=== PATIENT | female | born 1965 | race Caucasian/White ===

== ENCOUNTER 2018-04-27 00:49 | Outpatient (CLI) | payer BC, SELFPAY ==
--- NOTE | 2018-04-27 15:33 | DI.MAMMO_ITS ---
SYMPTOM/DIAGNOSIS: SCREENING, Z12.31 MAMMOGRAMS: Mammograms were interpreted according to the usual protocol including computer analysis with CAD system, tomosynthesis and C view imaging. Comparison is made with exams from [id number]. The breasts are composed of heterogeneously dense fibroglandular tissue, breast density, Category C. No suspicious masses or suspicious microcalcifications are seen. IMPRESSION: Category 1C, negative mammogram. Yearly screening mammography is recommended. [facility] ASSESSMENT OF FINDINGS: Negative. Category 1. Patient will receive a letter notifying them of these results. Bi-RADS category C. The breasts are heterogeneously dense, which may obscure small masses.
== END 2018-04-27 01:09 ==
PROVIDERS: PCP Family Medicine; Visit Provider Nurse Practitioner Family
DX: Z12.31 Encounter for screening mammogram for malignant neoplasm of breast (principal)
CPT/HCPCS: 77063; 77067

== ENCOUNTER 2018-05-15 10:46 | Day surgery (SDC) | payer BC, SELFPAY ==
--- NOTE | 2018-05-15 07:14 | W.COLOREPORT ---
Colonoscopy Report Date of procedure: 05/15/18 Pre-op diagnosis general: Screening Colonoscopy Post-op diagnosis procedure note: other (sigmoid diverticulosis) Procedure: Colonoscopy Surgeon: Bronwyn Leung Anesthesia proc note operative: MAC (Amando Williamson CRNA) Estimated blood loss (mL): 0 Pathology: none sent Complications: None Disposition: same day Indications: Mrs. Puente is here for a screening Colonoscopy. Risks, benefits and complications have been reviewed and she wished to proceed. No guarantees were given or implied. Prep: Miralax/Dulcolax Procedure Start Time: 12:55 Procedure End Time: 13:14 Retraction Time: 11 minutes Findings: Mild diverticulosis of the sigmoid colon Procedure Description: After informed consent was obtained the patient was taken to the procedure room and placed in a left decubitous position. Monitors were applied and a time out was done. The patients name, date of , procedure, allergies to medications and metal in their body was reviewed. The patient was then sedated. Once sedated and comfortable a rectal exam was done. External exam was normal. Internal exam revealed a normal sphincter tone and no palpable masses. The scope was then introduced and retroflexed. No internal hemorrhoids were identified. The scope was then advanced to the cecum without difficulty. The TI and appendiceal orifice were identified. The prep was adequate. The scope was then slowly retracted over 11 minutes back into the rectum. There were no polyps. There was mild diverticulosis of the sigmoid colon.The scope was removed and the patient was woken up and taken back to Same day surgery in stable condition. The patient tolerated the procedure well and there were no immediate complications. Follow up: The patient should follow up in 10 years unless they develop changes in bowel habits or other new gastrointestinal complaints.
--- NOTE | 2018-05-15 07:17 | PDOC.DSDIS_ITS ---
Discharge Plan Disposition Patient Disposition: HOME Condition: Good Discharge Details Reason For Visit: Colonoscopy Attending Provider: Bronwyn Leung Primary Care Provider: Burton Perry Home Meds and New Rx's Prescriptions: Continue multivitamin,lw-vqjr-ljylyxse [Complete Multivitamin] tablet 1 tab PO DAILY RF: 0 norethindrone acetate [Aygestin] 5 MG tablet 5 mg PO DAILY Qty: 90 RF: 3 Discontinued polyethylene glycol 3350 17 gram powder in packet 255 g PO DAILY Qty: 15 RF: 0 bisacodyl [Dulcolax (bisacodyl)] 5 mg tablet,delayed release (DR/EC) 5 mg PO ONCE Qty: 4 RF: 0 Discharge Instructions Instructions: Colonoscopy (DC), Diverticulosis (DC) Additional Instructions: Findings: Diverticulosis Follow up: 10 years New medications: none Please call if you develop: fevers >101.5 Nausea or Vomiting Abdominal pain that is not transient 1. Because there will be medication in your system for the next 24 hours, you may feel a little sleepy. Your coordination will be affected. Therefore: a. Do not drive or operate dangerous equipment for 24 hours. b. Do not drink alcohol beverages for 24 hours (not even beer). c. Plan to go home and rest for the day. 2. Generally there are no restrictions on your activity after a day or so has gone by, but you may feel a bit fatigued for a few days. 3 After you arrive home you may have a light meal and return to a normal diet as you can tolerate it without feeling sick to your stomach. 4. After surgery, you may feel pain or discomfort. This should be only transient , but if it persists please contact your doctor. 5. If there are any questions regarding the findings of your procedure, please feel free to contact your doctor. 6. If you are unable to contact your doctor with a problem, contact the hospital at [phone]. 7. Continue all your regular medications unless directed otherwise. I understand the above instructions and have no questions. Signature of Patient or Responsible Adult Escort Date/Time Name of Responsible Adult Escort Signature of Nurse Date/Time Activity:: Activity as Tolerated Diet:: high fiber diet Discharge Orders Discharge Orders: Discharge Order (Routine); Ordered 05/15/18 Ordered By: Bronwyn Leung
[2018-05-15 11:22] VITALS: BP 137/97; PULSE 76; RESP 16; TEMP 36.6; O2SAT 99
[2018-05-15] MEDS: Lactated Ringers 1,000 ML 80 ML IV (11:40)
[2018-05-15 13:45] VITALS: BP 140/93; PULSE 65; RESP 16; TEMP 37.4; O2SAT 100
== END 2018-05-15 14:07 | disposition home or self-care (01) ==
LOC: SUR 10:46
PROVIDERS: PCP Family Medicine; Visit Provider Surgery
PROC: 0DJD8ZZ Inspection of Lower Intestinal Tract, Via Natural or Artificial Opening Endoscopic (ICD-10-PCS; CPT 45378; principal; 2018-05-15 13:00)
DX: Z12.11 Encounter for screening for malignant neoplasm of colon (principal); K57.30 Diverticulosis of large intestine without perforation or abscess without bleeding
CPT/HCPCS: 45378

== ENCOUNTER 2019-03-01 08:45 | Outpatient (CLI) | payer BC, SELFPAY ==
[2019-03-01 10:21] LABS: ALT 23 U/L (12-78); AST 14 U/L (15-37); Albumin 3.7 g/dL (3.4-5.0); Alkaline Phosphatase 88 U/L (46-116); Anion Gap 11.6 mmol/L (3-11); BUN 10 mg/dL (7-18); Bilirubin, Total 0.4 mg/dL (0.2-1.0); CO2 23.4 mmol/L (21.0-32.0); CREATININE 0.82 mg/dL (0.55-1.02); Calcium 8.6 mg/dL (8.5-10.1); Calculated LDL 138 mg/dL; Chloride 106 mmol/L (98-107); Cholesterol 197 mg/dL (50-200); Glucose 90 mg/dL (70-100); HDL Cholesterol 22 mg/dL (40-60); Potassium 4.1 mmol/L (3.5-5.1); Sodium 141 mmol/L (136-145); Total Protein 6.8 g/dL (6.4-8.2); Triglyceride 186 mg/dL (30-150)
== END 2019-03-01 09:05 ==
PROVIDERS: PCP Family Medicine; Visit Provider Family Medicine
DX: E78.6 Lipoprotein deficiency (principal); Z00.00 Encounter for general adult medical examination without abnormal findings
CPT/HCPCS: 36415; 80053; 80061; 83721

== ENCOUNTER 2019-05-02 00:47 | Outpatient (CLI) | payer BC, SELFPAY ==
--- NOTE | 2019-05-02 15:30 | DI.MAMMO_ITS ---
EXAM: MG MAMMO SCREENING CLINICAL HISTORY: SCREENING, ENCOUNTER FOR ANNUAL PHYSICAL EXAM.,z00.00,z12.31 TECHNIQUE: Bilateral full field digital CC and MLO mammographic images were obtained with 3D tomosyn thesis and utilizing computer aided detection (CAD). COMPARISON: With previous examinations including April,. FINDINGS: The breasts are heterogeneously dense. No dominant mass or clumped microcalcification identified in either breast. Current exam is compared with the previous examinations including April 2018 and there has been no gross interval change in appearance in comparison with the previous studies. IMPRESSION: No specific evidence of malignancy at this time. Routine screening examinations are suggested at year ly intervals in this age group according to the ACS ACR guidelines. Category 1. Breast density, sue huynhy C. BI-RADS Cat 1 - Negative Breast Density - Catergory C - Heterogeneously dense
== END 2019-05-02 01:07 ==
PROVIDERS: PCP Family Medicine; Visit Provider Family Medicine
DX: Z00.00 Encounter for general adult medical examination without abnormal findings (principal); Z12.31 Encounter for screening mammogram for malignant neoplasm of breast
CPT/HCPCS: 77063; 77067

== ENCOUNTER 2019-07-24 01:51 | Outpatient (CLI) | payer BC, SELFPAY ==
[2019-07-24 11:40] LABS: ALT 20 U/L (14-59); Calculated LDL 88 mg/dL; Cholesterol 142 mg/dL (<200); HDL Cholesterol 23 mg/dL (40-60); Triglyceride 159 mg/dL (<150)
== END 2019-07-24 02:11 ==
PROVIDERS: PCP Family Medicine; Visit Provider Family Medicine
DX: E78.5 Hyperlipidemia, unspecified (principal)
CPT/HCPCS: 36415; 80061; 84460

== ENCOUNTER 2020-01-25 04:06 | Outpatient (CLI) | payer BC, SELFPAY ==
[2020-01-25 08:45] LABS: ALT 28 U/L (14-59); Calculated LDL 80 mg/dL (<100); Cholesterol 132 mg/dL (<200); HDL Cholesterol 26 mg/dL (40-60); Triglyceride 131 mg/dL (<150)
== END 2020-01-25 04:26 ==
PROVIDERS: PCP Family Medicine; Visit Provider Family Medicine
DX: E78.6 Lipoprotein deficiency (principal)
CPT/HCPCS: 36415; 80061; 84460

== ENCOUNTER 2020-04-25 16:16 | Outpatient (REF) | payer BC, SELFPAY ==
--- NOTE | 2020-04-25 15:45 | PAPFT_PTH ---
PATIENT: Yolis Puente LOC: [facility] U#:[id number] AGE/SX: 54/F ROOM: RE04/25/[address]: DENAE Baxter : 1965 BED: DIS: 04/25/2020 SPEC #: [id number] RECD: 04/25/20 16:56 STATUS: DANIEL REQ #: [id number] RUDI: 04/25/20 15:[address]: Hilda Hernandez DEPT: [facility] Cytology RECD BY: Christine Gr ENTERED: 04/25/20 16:57 SP TYPE: PAPFT OTHR DR: Burton Perry MD Tissues: 1 - CX/ENDOCX FOR PAP SMEARS Procedures: PAP THIN PREP/UVM Screening HPV DNA PROBE Comments: [id number]
== END 2020-04-25 16:36 ==
LOC: LBN 16:16
PROVIDERS: PCP Family Medicine; Visit Provider Nurse Practitioner Family
DX: Z12.4 Encounter for screening for malignant neoplasm of cervix (principal); Z11.51 Encounter for screening for human papillomavirus (HPV)
CPT/HCPCS: 88142; 87624

== ENCOUNTER 2020-05-19 00:50 | Outpatient (CLI) | payer BC, SELFPAY ==
--- NOTE | 2020-05-19 15:30 | DI.MAMMO_ITS ---
EXAM: MG MAMMO SCREENING CLINICAL HISTORY: screening TECHNIQUE: Mammograms were interpreted according to the usual protocol including computer analysis w Twice CAD system, tomosynthesis and C-view imaging. COMPARISON: FINDINGS: The breasts are heterogeneously dense. No dominant mass or clumped microcalcification is identified in either breast. The current examination is compared with prior studies including April 2019 an d there has been no gross interval change in appearance comparison with the previous examinations. IMPRESSION: No specific evidence of malignancy at this time. Routine screening examinations are suggested at yea rly intervals in this age group according to the ACS ACR guidelines. BI-RADS Category 1 - Negative Breast Density - Category C - Heterogeneously dense
== END 2020-05-19 01:10 ==
PROVIDERS: PCP Family Medicine; Visit Provider Nurse Practitioner Family
DX: Z12.31 Encounter for screening mammogram for malignant neoplasm of breast (principal)
CPT/HCPCS: 77063; 77067

== ENCOUNTER 2020-07-07 03:49 | Outpatient (CLI) | payer BC, SELFPAY ==
[2020-07-08 19:12] LABS: Patient Race White; SARS-CoV-2 Specimen Source Nasal
[2020-07-09 09:25] LABS: SARS-CoV-2 RNA Detected (Undetected)
== END 2020-07-07 04:09 ==
PROVIDERS: PCP Family Medicine; Visit Provider Family Medicine
DX: Z11.59 Encounter for screening for other viral diseases (principal)
CPT/HCPCS: U0003

== ENCOUNTER 2021-01-13 01:13 | Observation (INO) | payer BC, SELFPAY ==
[2021-01-13] VITALS (19 sets, daily range): BP systolic 118–151; BP diastolic 73–85; PULSE 65–79; RESP 10–22; TEMP 36.2–37; O2SAT 96–100
--- NOTE | 2021-01-13 01:11 | W.ED.GENAD ---
Discharge Plan Disposition Patient Disposition: [facility] INPATIENT Condition: Poor Discharge Details Clinical Impression: Vertigo Primary Care Provider: Janneth Venegas ED Provider: Brian Capone Meds and New Rx's Prescriptions: No Action Complete Multivitamin tablet 1 tab PO DAILY RF: 0 omega-3 fatty acids [Fish Oil Concentrate] 1,000 mg capsule 1,000 mg PO DAILY RF: 0 atorvastatin 40 mg tablet 40 mg PO QHS Qty: 90 RF: 3 valsartan 80 mg tablet 80 mg PO DAILY Qty: 30 RF: 11 norethindrone acetate [Aygestin] 5 mg tablet 5 mg PO DAILY Qty: 90 RF: 3 fluticasone propionate 50 mcg/actuation spray,suspension 2 spray MARIAELENA DAILY PRN (Reason: allergic rhinitis) Qty: 47.4 RF: 5 Medical Decision Making Patient presenting with vertigo and multidirectional nystagmus including rotary nystagmus but otherwise normal neurologic exam with NIH score of 0. However the rest nystagmus and vertigo is worrisome. Patient last normal at 8:[address] Will continue fluids. Valium to try to help with the vertigo. EKG is normal. Laboratory studies sent. CT head as well as CTA head and neck ordered. Patient's vertigo still present but much less intense after Valium. Still has nystagmus although much improved. No new neurologic changes. Laboratory studies are unremarkable, minor electrolyte abnormalities. CT head shows no evidence of acute stroke. She does have what appears to be 2 meningiomas which she was unaware of. CTA head and neck are completely normal. Patient will be dosed with aspirin. Case discussed with hospitalist for admission for control of vertigo as well as MRI of the brain. Patient accepted for admission Lab Data Lab results reviewed: Yes I reviewed the patient's lab results. ECG Data Attestation: I personally reviewed and interpreted this ECG (s) as follows: Prior ECG tracings: not available for review Interpretation: see EKG HPI General Mode of arrival: EMS. Date/Time Provider Initiated Documentation: 01/13/21 01:20. Limitations to Documentation: no limitations. Information obtained by: patient and RN notes reviewed. HPI Narrative: Patient presents to ED with dizziness. Patient went to bed around 8:30 PM and had felt fine. Woke up with severe dizziness and was unable to even get out of bed. She had multiple episodes of vomiting. EMS was called. Patient had IV established and was given fluids and Zofran in route. Nausea somewhat better but she still has dizziness. Reports that the room is spinning no matter what but is worse if she moves or opens her eyes. She denies headache. She denies neck pain. She denies visual change, confusion, speech problem, numbness, weakness. She denies having any chest pain or shortness of breath. She has nausea and vomiting but no abdominal pain. She has never had vertigo previously. She does have history of hypertension and hypercholesterolemia. No history of tobacco use or diabetes. Related Data Home Medications Medication Instructions Recorded Confirmed multivitamin,gn-nevg-rojgtlry 1 tab PO DAILY 05/09/18 01/13/21 omega-3 fatty acids 1,000 mg 1,000 mg PO DAILY 04/20/19 01/13/21 capsule atorvastatin 40 mg tablet 40 mg PO QHS #90 tab 02/18/20 01/13/21 valsartan 80 mg tablet 80 mg PO DAILY #30 tab 02/18/20 01/13/21 fluticasone propionate 50 2 spray MARIAELENA DAILY PRN #47.4 gm 04/22/20 01/13/21 mcg/actuation nasal spray,suspension norethindrone acetate 5 mg tablet 5 mg PO DAILY #90 tab-cap 04/25/20 01/13/21 Previous Rx's Medication Instructions Recorded atorvastatin 40 mg tablet 40 mg PO QHS #90 tab 02/18/20 valsartan 80 mg tablet 80 mg PO DAILY #30 tab 02/18/20 fluticasone propionate 50 2 spray MARIAELENA DAILY PRN #47.4 gm 04/22/20 mcg/actuation nasal spray,suspension norethindrone acetate 5 mg tablet 5 mg PO DAILY #90 tab-cap 04/25/20 Allergies Allergy/AdvReac Type Severity Reaction Status Date / Time coenzyme 10 Allergy Intermediate Hives/Itchi Uncoded 01/13/21 01:23 ng Review of Systems Narrative: 05/28 Review of Systems completed and is negative except as stated above in HPI (Systems reviewed: Const, Eyes, ENT, Resp, CV, GI, , MSK, Skin, Neuro) PFSH Medical History Anemia Fibroid uterus HTN (hypertension) Hyperglycemia Hypertriglyceridemia Menorrhagia Treated with OCPs [id number]. Mirena IUD 2013 not effective. 06/19/15 hysteroscopic myomectomy. Surgical History Hysteroscopy (06/19/15) hysteroscopic myomectomy. 3/4 of fibroid removed. Family History Mother Heart disease Maternal Grandfather , 70s Heart disease Maternal Grandmother , 90 Diabetes Asthma Son No problems noted. Daughter No problems noted. Father , Age 69 No problems noted. Social History Smoking/Tobacco Use Status: Never Smoking risk assessment performed?: Yes Alcohol Intake: current Alcohol Intake frequency: a few times a month Alcohol type: hard liquor Drug use: Never Caregiver/Support person: No Household members: significant other and children Housing: house Communication Needs: None Do you need help understanding health information?: Never Pets and animals: No Sexually active: Yes Do you think of yourself as: straight/heterosexual Current gender identity: female What is your relationship status?: living with partner How often do you talk on the phone with friends or family?: three or more times per week How often do you get together with friends or relatives?: three or more times per week How often do you attend rastafari or holiness services?: decline to answer Do you belong to any clubs or organized social groups?: no Panel score (0-1 are the most socially isolated patients): 2 What type of physical activity do you participate in: walking Duration: 45-60 minutes/day Frequency: 5-6 times per week Tatiana/Moravian: None Special tatiana needs: No Seatbelt use: always Helmet use: Yes Drive intox or ride w/intox passenger coach driver: No Do you feel safe at home: Yes Exam Narrative Exam Narrative: Const: WDWN female lying on stretcher with eyes closed. HEENT: NC/AT. Normal facial exam. Eyes: PERRL. EOMI but multidirectional rest nystagmus present. Neck: Supple. Trachea midline. Lungs: Normal respiratory effort. Lungs are clear. Cor: RRR without murmur/gallop. Good radial pulses. GI: Soft. NT/ND. No guarding or rebound. Neuro: A+O x 3. Normal speech, mentation. Cranial nerves II - XII grossly intact. Sensory in tact. Strength normal throughout. No ataxia. NIH 0. HINTs positive. Ext: No C/C/E. Skin: Warm and dry without rash.
--- NOTE | 2021-01-13 01:15 | RT.EKG_ITS ---
APPROVED REPORT Exam: Resting ECG Reason for Exam: dizzy Patient Location: E HR:63 bpm ECG Measurements Heart Rate 63 AXIS AR 176 P 46 QRSd 91 QRS 13 QT 452 T 32 QTc 462 Conclusion Sinus rhythm...normal P axis, V-rate 60- 99 Normal [place] Normal Electrocardiogram
--- NOTE | 2021-01-13 01:15 | DI.CT_ITS ---
Exam(s) CT BRAIN NECK CTA EXAM: CT BRAIN NECK CTA CLINICAL HISTORY: vertigo, rotorary nystagmus. TECHNIQUE: Imaging Protocol: Axial CT angiography was performed with multi-slice acquisition and mu lti-planar and/or 3D reconstructions. CONTRAST MATERIAL: Intravenous: Omnipaque 350 Contrast volume:structured data in ml COMPARISON: No exams were available for comparison FINDINGS: CT angiography of the cervical cranial region was performed according to the usual protocol with intr avenous infusion of 86 cc of Omnipaque 350.. Initial noncontrast scanning of the head shows partially calcified left intracranial masses which estefany ear to be extra-axial, left frontal parafalcine measuring about 26 by 19 millimeters in diameter and left temporal measuring 25 x 22 millimeters in diameter. These are partially calcified and show inte nse homogeneous enhancement on post contrast scanning, findings are consistent with meningioma. Visualized lung apices are clear. Visualized portions of thoracic aorta and pulmonary arterial circul ation are unremarkable. There is no evidence of a cervical mass or adenopathy. The tracheal laryngeal structures appear intact. The common, internal, and external carotid arteries are within normal limits in the cervical region w ith no evidence of aneurysm, stenosis, or dissection. The vertebral arteries are unremarkable in appearance in the cervical region with no evidence of aneu rysm, stenosis, or dissection. Intracranial portions of the internal carotid arteries appear normal with no evidence of aneurysm, st enosis, or dissection. Intracranial vertebral arteries and basilar artery appear normal with no evidence of aneurysm, stenos is or dissection. The vertebral circulation is right dominant. No aneurysm identified in the region of the yhadkf-zu-Wuzbce. The anterior, middle, and posterior cer ebral arteries and major branches appear intact with no evidence of aneurysm, stenosis, or dissection . IMPRESSION: Negative CT angiography of the cervical cranial region. Incidental finding of presumed left-sided meningiomas as described above. RADIATION DOSE DELIVERED: 2,157.6mGy.cmTotal DLP 2,157.6mGy.cm Total DLP DATA REPOSITORY: All CT scans at this facility are submitted to the National Radiology Data Registry (NRDR) Dose Index Registry (DIR) with the [employer] (ACR). RADIATION OPTIMIZATION: All CT scans at this facility use at least one of these dose optimization te chniques: automated exposure control; mA and/or kV adjustment per patient size (includes targeted exa ms where dose is matched to clinical indication); or iterative reconstruction.
[2021-01-13] MEDS: diazePAM 10 MG/2 ML SYR 2 MG IVP (01:35)
[2021-01-13 01:47] LABS: Abs Immature Grans 0.04 10^3/uL (0.0-0.06); Absolute Basophil Count 0.04 10^3/uL (0.0-0.2); Absolute Eosinophil Count 0.15 10^3/uL (0.0-0.7); Absolute Lymphocyte Count 1.73 10^3/uL (1.2-3.4); Absolute Monocyte Count 0.71 10^3/uL (0.1-0.8); Absolute Neutrophil Count 9.51 10^3/uL (1.2-6.7); Basophils % 0.3; Eosinophils % 1.2; HCT 39.4 % (36.0-46.0); HGB 13.4 g/dL (11.2-15.7); Immature Grans % 0.3; Lymphocytes % 14.2; MCH 30.4 pg (27.0-33.0); MCV 89.3 fL (80-95); MPV 9.6 fL (8.0-11.0); Monocytes % 5.8; Neutrophils % 78.2; Nucleated RBC 0 %; Platelet Count 252 10^3/uL (130-400); RBC 4.41 10^6/uL (3.93-5.22); RDW 12.4 % (11.7-14.6); RDW-SD 41.1 fL; WBC 12.16 10^3/uL (4.4-10.8)
[2021-01-13] MEDS: Normal Saline 1,000 ML 150 ML IV (01:57)
[2021-01-13 02:01] LABS: ALT 26 U/L (14-59); AST 17 U/L (15-37); Albumin 3.8 g/dL (3.4-5.0); Alkaline Phosphatase 85 U/L (46-116); Anion Gap 14.9 mmol/L (3-11); BUN 15 mg/dL (7-18); Bilirubin, Total 0.5 mg/dL (0.2-1.0); CO2 21.1 mmol/L (21.0-32.0); CREATININE 1.2 mg/dL (0.55-1.02); Calcium 8.5 mg/dL (8.5-10.1); Chloride 108 mmol/L (98-107); Estimated GFR 46.99 (mL/min/1.73m2); Glucose 150 mg/dL (74-106); Magnesium 1.7 mg/dL (1.8-2.4); Potassium 3.4 mmol/L (3.5-5.1); Sodium 144 mmol/L (136-145); Total Protein 6.8 g/dL (6.4-8.2)
[2021-01-13] MEDS: Omnipaque 350 MG/ML 100 ML BTL IJ (02:53)
[2021-01-13] MEDS: Normal Saline - Diluent 50 ML VIAL IV (02:53)
--- NOTE | 2021-01-13 03:05 | DI.VRAD_ITS ---
PROCEDURE INFORMATION: Exam: CT Angiography Head With Contrast, Arteriography Exam date and time: 01/13/2021 1:30 AM Age: 55 years old Clinical indication: Pain; Other: Vertigo rotorary nystagmus TECHNIQUE: Imaging protocol: Computed tomography angiography of the head with contrast. Exam focused on the arteries. 3D rendering (Not supervised by radiologist): MIP and/or 3D reconstructed images were created by the technologist. Contrast material: 100; Contrast volume: 86 ml; Contrast route: INTRAVENOUS (IV); COMPARISON: No relevant prior studies available. FINDINGS: ANTERIOR CIRCULATION: Right internal carotid artery: Unremarkable. Intracranial segment is patent with no significant stenosis. No aneurysm. Right middle cerebral artery: Unremarkable. No occlusion or significant stenosis. No aneurysm. Right anterior cerebral artery: Unremarkable. No occlusion or significant stenosis. No aneurysm. Left internal carotid artery: Unremarkable. Intracranial segment is patent with no significant stenosis. No aneurysm. Left middle cerebral artery: Unremarkable. No occlusion or significant stenosis. No aneurysm. Left anterior cerebral artery: Unremarkable. No occlusion or significant stenosis. No aneurysm. POSTERIOR CIRCULATION: Right vertebral artery: Unremarkable. No occlusion or significant stenosis. No aneurysm. Left vertebral artery: Unremarkable. No occlusion or significant stenosis. No aneurysm. Basilar artery: Unremarkable. No occlusion or significant stenosis. No aneurysm. Right posterior cerebral artery: Unremarkable. No occlusion or significant stenosis. No aneurysm. Left posterior cerebral artery: Unremarkable. No occlusion or significant stenosis. No aneurysm. Brain: Partially calcified extra-axial lesions noted in a left frontal parafalcine location measuring 2.6 by 1.9 cm and in a left temporal location measuring 2.5 x 2.2 cm likely reflecting meningioma. Cerebral ventricles: No ventriculomegaly. Bones/joints: Unremarkable. No acute fracture. Soft tissues: Unremarkable. IMPRESSION: No large vessel stenosis or occlusion Partially calcified extra-axial lesions noted in a left frontal parafalcine location measuring 2.6 by 1.9 cm and in a left temporal location measuring 2.5 x 2.2 cm likely reflecting meningioma. PROCEDURE INFORMATION: Exam: CT Angiography Neck With Contrast Exam date and time: 01/13/2021 1:30 AM Age: 55 years old Clinical indication: Pain; Other: Vertigo rotorary nystagmus TECHNIQUE: Imaging protocol: Computed tomography angiography of the neck with contrast. 3D rendering (Not supervised by radiologist): MIP and/or 3D reconstructed images were created by the technologist. Contrast material: 100; Contrast volume: 86 ml; Contrast route: INTRAVENOUS (IV); COMPARISON: No relevant prior studies available. FINDINGS: Right common carotid artery: No stenosis. No dissection or occlusion. Right internal carotid artery: No stenosis of the extracranial segment. No dissection or occlusion. Right external carotid artery: No occlusion or stenosis of the origin. Left common carotid artery: No stenosis. No dissection or occlusion. Left internal carotid artery: No stenosis of the extracranial segment. No dissection or occlusion. Left external carotid artery: No occlusion or stenosis of the origin. Right vertebral artery: Dominant right vertebral artery Left vertebral artery: No stenosis. No dissection or occlusion. Soft tissues: Normal. No significant soft tissue swelling. Bones/joints: No acute fracture. IMPRESSION: No carotid or vertebral artery stenosis. Dominant right vertebral artery REFERENCES: NASCET CRITERIA. The degree of internal carotid artery stenosis is based on NASCET criteria. Normal is no stenosis. Mild is less than 50% stenosis. Moderate is 50-69% stenosis. Severe is 70% to 99% stenosis. Total occlusion is no detectable patent lumen. Dictated and Authenticated by: Ajith Dietz MD. Ordering:KRISTYN Torres MD
[2021-01-13] MEDS: Aspirin 81 MG CHEW 324 MG CH (03:28)
[2021-01-13 03:30] LABS: Source Nasal/Nares
--- NOTE | 2021-01-13 03:49 | W.PM.HP.N ---
Date of service: 01/13/21 Time of Service: 03:49 Assessment and Plan Assessment and plan (1) Vertigo: Status: Acute Assessment and plan: Vertigo. Likely peripheral, cannot entirely exclude small posterior stroke. Will add Meclizine, along with prn Valium and Zofran, and will give maintenance IVF. Plan MRI in AM. Declines trial of canalith repositioning maneuver. History of Present Illness History of Present Illness Chief Complaint: vertigo Narrative: 55 female with HT, HLD -- awoke suddenly with vertigo early this morning, along with multiple episodes vomiting. No CHRISTIE, visual or speech disturbance or lateralizing symptoms. Received Zofran en route. In ER findings of note for mixed nystagmus, otherwise normal neurological exam. CT head negative except for incidental finding of left frontal and left temporal lesions c/w menigioma. Given Valium 2 IV with modest improvement in symptoms. Also given dose ASA 325. Admitted for further evaluation and management. Patient denies recent URI or prior such episodes. States she feels definitely better but still substantially distressed. Of note she was able to navigate to commode with assist but prefers to lie still with eyes closed. Review of Systems All systems reviewed & are unremarkable except as noted in HPI and below PFSH Medical History Anemia Fibroid uterus HTN (hypertension) Hyperglycemia Hypertriglyceridemia Menorrhagia Treated with OCPs [id number]. Mirena IUD 2013 not effective. 06/19/15 hysteroscopic myomectomy. Surgical History Hysteroscopy (06/19/15) hysteroscopic myomectomy. 3/4 of fibroid removed. Family History Mother Heart disease Maternal Grandfather , 70s Heart disease Maternal Grandmother , 90 Diabetes Asthma Son No problems noted. Daughter No problems noted. Father , Age 69 No problems noted. Social History Smoking/Tobacco Use Status: Never Smoking risk assessment performed?: Yes Alcohol Intake: current Alcohol Intake frequency: a few times a month Alcohol type: hard liquor Drug use: Never Caregiver/Support person: No Household members: significant other and children Housing: house Communication Needs: None Do you need help understanding health information?: Never Pets and animals: No Sexually active: Yes Do you think of yourself as: straight/heterosexual Current gender identity: female What is your relationship status?: living with partner How often do you talk on the phone with friends or family?: three or more times per week How often do you get together with friends or relatives?: three or more times per week How often do you attend hinduism or jain services?: decline to answer Do you belong to any clubs or organized social groups?: no Panel score (0-1 are the most socially isolated patients): 2 What type of physical activity do you participate in: walking Duration: 45-60 minutes/day Frequency: 5-6 times per week Tatiana/Denominational: None Special tatiana needs: No Seatbelt use: always Helmet use: Yes Drive intox or ride w/intox corrugated fastener driver: No Do you feel safe at home: Yes Meds Allergies and Home Medications Allergies Allergy/AdvReac Type Severity Reaction Status Date / Time coenzyme 10 Allergy Intermediate Hives/Itchi Uncoded 01/13/21 01:23 ng Home Medications Medication Instructions Recorded Confirmed Type multivitamin,vr-cezn-utbpdzpc 1 tab PO DAILY 05/09/18 01/13/21 History omega-3 fatty acids 1,000 mg 1,000 mg PO DAILY 04/20/19 01/13/21 History capsule atorvastatin 40 mg tablet 40 mg PO QHS #90 tab 02/18/20 01/13/21 Rx valsartan 80 mg tablet 80 mg PO DAILY #30 tab 02/18/20 01/13/21 Rx fluticasone propionate 50 2 spray MARIAELENA DAILY PRN #47.4 gm 04/22/20 01/13/21 Rx mcg/actuation nasal spray,suspension norethindrone acetate 5 mg tablet 5 mg PO DAILY #90 tab-cap 04/25/20 01/13/21 Rx Exam Narrative Exam Narrative: 133/73, 77, 36.4, 16, 100% RA. HEENT atraumatic; neck supple; lungs clear; heart RRR; abdomen soft and NT; extremities w/o edema; neuro Ox3, lucid, no aphasia; CN:PERRL, EOMI, visual patten full to confrontation, lateral nystagmus (to right) present bilaterally, seems to jose somewhat with focussed gaze, intact light touch on face, no facial asymmetry, tongue mid-line; motor 5/5 throughout; sensory intact light touch; FTN and HTS intact Results Labs Result diagrams: 01/13/21 01:41 01/13/21 01:41 Labs: Laboratory Results - last 24 hr 01/13/21 01/13/21 01/13/21 01:41 01:41 03:25 WBC 12.16 H RBC 4.41 Hgb 13.4 Hct 39.4 MCV 89.3 MCH 30.4 MCHC 34.0 RDW 12.4 Plt Count 252 MPV 9.6 Immature Gran % 0.3 Neutrophils % 78.2 Lymphocytes % 14.2 Monocytes % 5.8 Eosinophils % 1.2 Basophils % 0.3 Nucleated RBC % 0 Absolute Neutrophils 9.51 H Absolute Lymphocytes 1.73 Absolute Monocytes 0.71 Absolute Eosinophils 0.15 Absolute Basophils 0.04 Sodium 144 Potassium 3.4 L Chloride 108 H Carbon Dioxide 21.1 Anion Gap 14.9 H BUN 15 Creatinine 1.2 H Estimated GFR/1.73 m2 46.99 Glucose 150 H Calcium 8.5 Magnesium 1.7 L Total Bilirubin 0.5 AST 17 ALT 26 Alkaline Phosphatase 85 Total Protein 6.8 Albumin 3.8 COVID-19 Source Nasal/nares Last Vital Signs Temp 36.4 C L 01/13/21 01:15 Pulse 70 01/13/21 03:00 Resp 16 01/13/21 03:30 BP 133/73 01/13/21 03:00 Pulse Ox 100 01/13/21 03:30 COVID-19 Screening Have you, or household traveled for leisure in last 14 days?: No Had IN PERSON contact w/suspected or confirmed C-19 person: No
[2021-01-13] MEDS: POTASSIUM CHLORIDE/0.9% NACL 1,000 ML 125 MEQ IV ×3 (05:29→22:45)
[2021-01-13] MEDS: Meclizine 25 MG TAB PO ×3 (06:12→20:08)
[2021-01-13] MEDS: Potassium Chloride 20 MEQ TABCR 40 MEQ PO (08:37)
[2021-01-13] MEDS: MAGNESIUM SULFATE 2 GM/50 ML BAG IVPB (08:38)
--- NOTE | 2021-01-13 09:58 | PDOC.CMIN ---
- If Service Date Differs Date of service: 01/13/21 Time of Service: 09:59 Care Management Initial Assess REASON FOR HOSPITALIZATION:: Vertigo PAST MEDICAL HISTORY/PAST SURGICAL HISTORY:: Medical History. Anemia. Fibroid uterus. HTN (hypertension). Hyperglycemia. Hypertriglyceridemia. Menorrhagia. Treated with OCPs [id number]. Mirena IUD 2014 not effective. 06/19/15 hysteroscopic myomectomy. Surgical History. Hysteroscopy (06/19/15). hysteroscopic myomectomy. 3/4 of fibroid removed. PREVIOUS FUNCTIONAL STATUS/SOCIAL/FAMILY SUPPORTS:: Yolis lives in [place] with her partner, Wilbur, and her children. 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 She is independent at baseline. CURRENT FUNCTIONAL STATUS:: Yolis was lying in bed when CM met with her. She reported that she was feeling much better than she did when she first arrived. She stated that she is now able to open her eyes during a conversation, which is an improvement. Per provider, she may be ready for discharge this afternoon, depending on the results of the MRI. She is working with PT during this admission. CM will continue to follow. ADVANCE DIRECTIVES:: None on file. CM will offer forms. Has patient been provided with info about the portal/API?: Yes Did the patient sign up for the portal?: Yes (previously) CODE STATUS:: Full Code INSURANCE COVERAGE / FINANCIAL ISSUES:: BCBS CURRENT HOME/COMMUNITY SERVICES/EQUIPMENT:: No current services or equipment. PRIMARY CARE PHYSICIAN:: Janneth Venegas POTENTIAL DISCHARGE NEEDS:: Follow up appointment with PCP. PATIENT/FAMILY EDUCATION NEEDS:: Review discharge instructions, discussion of self care needs including ask me three. ANTICIPATED BARRIERS TO DISCHARGE:: None identified. TRANSPORTATION:: Via private vehicle by family. PLAN:: Anticipate Yolis will return home once medically cleared by MD. Her partner will drive her home via private vehicle when ready. She will follow up with her PCP and discharge plan of care. CM will continue to follow.
--- NOTE | 2021-01-13 11:04 | IN_ITS ---
Date of service: 01/13/21 Time of Service: 11:04 PT Notes Visit Reasons: Vertigo Physical Therapy Inpatient Initial Evaluation Date: 01/13/2021 Referring Doctor: Sergio Ames MD PT Orders: PT CONSULT: Limited ability Precautions: Fall. Standard. Activity as tolerated. Patient Profile/Admitting Diagnosis: Yolis is a 55-year-old female who presented to the ED early with complaints vomiting related to vertigo-like symptoms. CT of the head showed no cerebrovascular accident but with incidental findings of [address] of the neck also showed no acute abnormality. Patient is diagnosed with vertigo and is scheduled to have MRI later today to arrive at a more definitive diagnosis. PMHX: Medical History Anemia Fibroid uterus HTN (hypertension) Hyperglycemia Hypertriglyceridemia Menorrhagia Treated with OCPs [id number]. Mirena IUD 2013 not effective. 06/19/15 hysteroscopic myomectomy. Surgical History Hysteroscopy (06/19/15) hysteroscopic myomectomy. 3/4 of fibroid removed. Social History/Home Situation: Lives in a private home with 4 steps to enter with rails on B sides. Independent with prior level of fucntion without an assitive device. Teacher at the [employer]. Equipment Owned/DME: None Subjective: Yolis indicated that her admitting symptoms have not happened to her before. She was headed to bed last night when she started to become nauseous and felt the room spin around her. She elaborated that she has had issues with fluid in her ears in the past but she has not had them checked by a specialist. She indicated that from a scale of 1 through 5 with 5 being the most wavy, she has 10 out 5 waviness of her surroundings when she came in through the ED. Today, she grades the waviness she feels as 3-4 out of 5. She was agreeable to performing the Pernell-Hallpike maneuver after explanation that knowing the laterality of the affectation may help with managing her condition. Objective: General Observation: Eyes closed majority of the time as opening her eyes worsens her symptoms. Mental Status: Alert and oriented as to person, place, time, and purpose. Able to pay attention, focus, and respond appropriately. Pain: 0/10 ROM: Right Upper Extremity: Shoulder Flexion WFL. Shoulder abduction WFL. Shoulder ER/IR WFL. Elbow flexion WFL. Forearm pronation/supination WFL. Wrist flexion WFL. Opening and closing of hand WFL. Left Upper Extremity: Shoulder Flexion WFL. Shoulder abduction WFL. Shoulder ER/IR WFL. Elbow flexion WFL. Forearm pronation/supination WFL. Wrist flexion WFL. Opening and closing of hand WFL. Right Lower Extremity: Hip flexion WFL. Hip abduction WFL. Hip ER/IR WFL. Knee flexion WFL. Knee extension. Ankle dorsiflexion/eversion WFL. Ankle plant arflexion/inversion WFL. Left Lower Extremity: Hip flexion WFL. Hip abduction WFL. Hip ER/IR WFL. Knee flexion WFL. Knee extension. Ankle dorsiflexion WFL. Ankle plantarflexion WFL. Strength: Right Upper Extremity: Shoulder flexors 5/5. Shoulder abductors 5/5. Shoulder ER 5/5. Shoulder IR 5/5. Forearm pronators 5/5. Forearm supinators 5/5. Elbow flexors 5/5. Elbow extensors 5/5. Dynamite Packing Machine Operator strong. Left Upper Extremity: Shoulder flexors 5/5. Shoulder abductors 5/5. Shoulder ER 5/5/ Shoulder IR 5/5. Forearm pronators 5/5. Forearm supinators 5/5. Elbow flexors 5/5. Elbow extensors 5/5. Dynamite Packing Machine Operator strong. Right Lower Extremity: Hip flexors 5/5. Hip abductors 5/5. Hip external rotators 5/5. Hip internal rotators 5/5. Knee flexors 5/5. Knee extensors 5/5. Ankle dorsiflexors/evertors 5/5. Ankle plantarflexors/invertors 5/5. Left Lower Extremity: Hip flexors 5/5. Hip abductors 5/5. Hip external rotators 5/5. HIp internal rotators 5/5. Knee flexors 5/5. Knee extensors 5/5. Ankle dorsiflexors/evertors 5/5. Ankle plantarflexors/invertors 5/5. Bed Mobility/Transfers: Rolling CGA Supine to sit CGA Sit to supine CGA Sit to stand not tested due to severity of symptoms Stand to sit not tested due to severity of symptoms Bed to chair not tested due to severity of symptoms Chair to bed not tested due to severity of symptoms Gait: Not tested due to severity of symptoms Balance: Static Sitting: Good Dynamic Sitting: Fair Static Standing: Not tested Dynamic Standing: Not tested Special Tests: Mobility Limitations Standardized Measure [facility] AM-PAC 6 clicks Basic Mobility Inpatient Short Form: Raw Score: 14 CMS Score: 61% deficit Sharp-Carmelo Test: Negative Alar Ligamentous Test: Negative PERNELL-HALLPIKE MANEUVER: Patient manifests with R torsional upbeating nystagmus at rest and with head turned to L and R but greatest symptom provocation was made with head tunrde to L. Patient became nauseous and vomited x 3 with L [place]- Hallpike Testing. Informed Consent/Education: Patient was instructed in purpose of PT consult and plan of care. Agreeable to proceed with established PT POC to achieve personal goals. Assessment: Symptoms most indicative of posterior canal BPPV initially managed with L Wayne maneuver, gaze stabilization exercises, and trunk habituation exercises. Will consult with hospitalist and coordinate with nurse regarding holding off on anti-dizziness intake prior to doing Wayne meneuver to eliminate symptom masking effect provided by the drug to determine efficacy of maneuver. Will aslo consult with hospitalist regarding relationship of incidental findings of meningiomas with vertigo symptoms. Patient presents with clinical signs and symptoms consistent with current/admitting diagnoses that have resulted to mobility limitations, gait instability, generalized weakness, and impairment of motor control as demonstrated by the following impairment level findings: 1. Waviness, sensation of room spinning 2. Impaired sitting/standing balance 3. Impaired activity tolerance Impairments are contributing to the following functional limitations: 1. Dependent bed mobility skills 2. Increased dependence with transfers 3. Inability to safely ambulate due to severity of symptoms 4. Increase completion time for mobility ADL performance 5. Increased fall risk 6. Inability to negotiate steps alone safely 7. Inability to return to prior living environment at this time Patient is assessed as a 28620 moderate complexity based on the following: History: 55-year-old female with past medical history as indicated above Examination: Demonstrable impairment in strength, balance, and mobility level with underlying impairments and functional limitations as exhibited above as well as deficit score of 61% utilizing the [facility] Mobility Inpatient Short Form Presentation: Evolving Decision Makin moderate complexity Goals: Goals X1 week 1. Supine-Sit independent 2. Sit-Supine independent 3. Sit-Stand independent 4. Stand-Sit independent 5. Bed-Chair independent 6. Chair-Bed independent 7. Independent gait on level surface with use of no AD for at least 500 feet without report of pain nor dyspnea 8. Independent stair negotiation while holding onto 3 rails for at least 5 steps without report of pain nor dyspnea 9. Independent with home exercise program 10. Good static and dynamic standing balance/tolerance Plan of Care/Treatment Plan: 1-2x/day, 7 days/week x 1 week. Plan of care has been reviewed with the CHUTE GREASER providing the service under Physical Therapy direction. Initiate Physical Therapy intervention for pain management as needed, strengthening, bed mobility, transfers, gait, stairs, balance training, and use of assistive device. DISCHARGE RECOMMENDATIONS: Home when medically cleared by hospitalist. Continue with BPPV exercises as recommended. TREATMENT CODE/TIME: 57814 x 20 minutes, 05746 x 21 minutes beginning at 11:04 AM. Thank you for the opportunity to participate in the care of this patient. Bria Tobias PT, DPT, CLT [facility] [place], [place]
[2021-01-13 11:19] LABS: COVID-19 PCR Negative (Negative)
[2021-01-13] MEDS: diphenhydrAMINE 50 MG/ML VIAL 25 MG IVP (11:40)
[2021-01-13] MEDS: Ondansetron 4 MG/2 ML VIAL IVP (11:40)
[2021-01-13] MEDS: Normal Saline Flush 10 ML SYR IVP (11:41)
[2021-01-13] MEDS: Gadoterate meglumine 20 ML VIAL 17 ML IVP (13:55)
--- NOTE | 2021-01-13 14:05 | DI.MRI_ITS ---
Exam(s) MR BRAIN WO/W EXAM: MR BRAIN WO/W CLINICAL HISTORY: new onset vertigo with nystagmus. TECHNIQUE: Multiplanar multisequence MRI was performed. COMPARISON: No exams were available for comparison FINDINGS: MR examination of the brain was performed according to the usual protocol with additional post contra st axial and coronal T1 weighted imaging and MP rage imaging. Recent cranial CT showed left sided apparently extra-axial mass lesions, these are again seen on MR, left frontal adjacent to the falx measuring 29 x 20 millimeters in diameter and left temporal measuri ng about 26 x 22 millimeters in diameter period these appear to arise from the dura with characterist ic dural tail of meningioma. These enhance heterogeneously, raising the possibility of atypical meni ngioma or, rarely, other dural neoplastic process. No additional mass lesion or enhancing lesion is identified in the brain. No other signal abnormality seen. The orbital and temporal bone structures appear intact as does the pituitary. There is an incidental presumed small right parietal parafalcine arachnoid cyst. Diffusion-weighted imaging is unremarkable with slight diffusion restriction in the peripheral region of the fundal mass, this is a nonspecific finding. Susceptibility weighted imaging shows no evidence of intracranial hemorrhage. IMPRESSION: Left frontal and temporal extra-axial cerebral masses consistent with meningioma, heterogeneous enhan cement within these tumors is present raising the possibility of atypical meningioma. DATA REPOSITORY:
--- NOTE | 2021-01-13 16:52 | PT.INTREAT ---
Date of service: 01/13/21 Time of Service: 16:52 PT Notes Visit Reasons: Vertigo Physical Therapy Inpatient Treatment Note Date: 01/13/2021 Precautions: Fall. Standard. Activity as tolerated. Subjective: Yolis states that her symptoms have decreased with medication intake. She is willing to try out the maneuver so that she may be able to do them at home on her own. Objective: General Observation: Eyes now more open due to alleviation of symptoms from medication intake Mental Status: Alert and oriented as to person, place, time, and purpose. Able to pay attention, focus, and respond appropriately. Pain: 0/10 Bed Mobility/Transfers: Rolling CGA Supine to sit CGA Sit to supine CGA Sit to stand standby assist Stand to sit standby assist Bed to chair standby assist Chair to bed standby assist Gait: Tolerated in room ambulation from bedside to the bathroom while holding onto table and wall for support with minimal path deviation seen. Balance: Static Sitting: Good Dynamic Sitting: Good Static Standing: Fair Dynamic Standing: Fair Assessment: Patient needed to be brought down to lab for MRI testing when this PT was going to perform a second round of sincere maneuver around 1 pm in the afternoon. She was later seen before supper with one set of Sincere maneuver and gaze stabilization exercises done with minimal symptom provocation as patient has already taken her second dose of Meclizine and Benadryl. Symptoms most indicative of posterior canal BPPV. DISCHARGE RECOMMENDATIONS: Home when medically cleared by hospitalist. Continue with BPPV exercises as recommended. TREATMENT CODE/TIME: 75242 x 18 minutes beginning at 16:52 PM.
[2021-01-13] MEDS: Melatonin 3 MG TAB 6 MG PO (20:07)
[2021-01-13] MEDS: LORazepam 1 MG TAB PO (20:08)
[2021-01-13] MEDS: Valsartan 80 MG TAB PO (20:08)
[2021-01-13] MEDS: Norethindrone 5 MG TAB PO (20:08)
[2021-01-14 06:26] LABS: Abs Immature Grans 0.03 10^3/uL (0.0-0.06); Absolute Basophil Count 0.04 10^3/uL (0.0-0.2); Absolute Eosinophil Count 0.13 10^3/uL (0.0-0.7); Absolute Lymphocyte Count 2.06 10^3/uL (1.2-3.4); Absolute Monocyte Count 0.55 10^3/uL (0.1-0.8); Absolute Neutrophil Count 4.56 10^3/uL (1.2-6.7); Basophils % 0.5; Eosinophils % 1.8; HCT 36.4 % (36.0-46.0); HGB 12.4 g/dL (11.2-15.7); Immature Grans % 0.4; MCH 30.5 pg (27.0-33.0); MCHC 34.1 % (32.0-36.0); MCV 89.4 fL (80-95); MPV 9.4 fL (8.0-11.0); Monocytes % 7.5; Neutrophils % 61.8; Nucleated RBC 0 %; Platelet Count 233 10^3/uL (130-400); RBC 4.07 10^6/uL (3.93-5.22); RDW 12.9 % (11.7-14.6); RDW-SD 42.3 fL; WBC 7.37 10^3/uL (4.4-10.8)
[2021-01-14 06:49] LABS: Anion Gap 9.9 mmol/L (3-11); BUN 9 mg/dL (7-18); CO2 23.1 mmol/L (21.0-32.0); CREATININE 0.9 mg/dL (0.55-1.02); Calcium 7.8 mg/dL (8.5-10.1); Chloride 111 mmol/L (98-107); Glucose 108 mg/dL (74-106); Magnesium 2.2 mg/dL (1.8-2.4); Potassium 4.3 mmol/L (3.5-5.1); Sodium 144 mmol/L (136-145)
[2021-01-14] MEDS: POTASSIUM CHLORIDE/0.9% NACL 1,000 ML 125 MEQ IV (06:54)
[2021-01-14 08:20] VITALS: BP 138/88; PULSE 68; RESP 18; TEMP 36.7; O2SAT 96
--- NOTE | 2021-01-14 08:48 | DSE_ITS ---
Date of service: 01/14/21 Time of Service: 08:48 DS: Diagnosis Discharge Diagnosis (1) Vertigo: Status: Acute Discharge Plan Disposition Patient Disposition: HOME Condition: Improving Discharge Details Reason For Visit: VERTIGO Admit Date/Time: 01/13/21 04:10 Admit Provider: Sergio Ames Attending Provider: Sergio Ames Primary Care Provider: Janneth Venegas Hospital Course Hospital Course: This is a 55 year old female with past medical history of hyyperlipidemia and hypertension who was awoken out of sleep with symptoms of nausea, dizziness and unsteady gait. Exam showed multidirectional nystagmus including rotary nystagmus but otherwise normal neurologic exam with NIH score of 0. she was given valium to try to help with the vertigo. EKG was normal. CT head as well as CTA head and neck ordered which showed 2 meningiomas, incidental finding. Laboratory studies are unremarkable, minor electrolyte abnormalities. CT head shows no evidence of acute stroke. Patient was dosed with aspirin. Case discussed with hospitalist for admission for control of vertigo and MRI of the brain when available. overnight she remained hemodynamically stable with symptoms persisting. She received IV fluids, antiemetics and meclizine. ativan and benadryl given prior to her MRI and her symptoms started improving. Her brain MRI did again demonstrate left frontal and temporal extra-axial cerebral masses consistent with meningioma, heterogeneous enhancement within these tumors is present raising the possibility of atypical meningioma. These images were sent to [facility] and her case was reviewed with Dr Wilkerson on neurosurgery. He will follow up with her outpatient in the clinic for further recommendations. Her symptoms as resolved and she will be discharged to home with meclizine to use prn vertigo. patient advised to also f/u with pcp or return here sooner for new or worsening symptoms. discharge discussed with DR Ernst. Home Meds and New Rx's Prescriptions: New meclizine 25 mg Tablet 25 mg PO TID PRNQty: 20 RF: 0 Continued Complete Multivitamin tablet 1 tab PO DAILY RF: 0 omega-3 fatty acids [Fish Oil Concentrate] 1,000 mg capsule 1,000 mg PO DAILY RF: 0 atorvastatin 40 mg tablet 40 mg PO QHS Qty: 90 RF: 3 fluticasone propionate 50 mcg/actuation spray,suspension 2 spray MARIAELENA DAILY PRN (Reason: allergic rhinitis) Qty: 47.4 RF: 5 valsartan 80 mg Tablet 80 mg PO QPM RF: 0 norethindrone acetate 5 mg Tablet 5 mg PO QPM RF: 0 Discharge Instructions Instructions: Vertigo (DC) Stand Alone Forms: Nursing Discharge Form Referrals: Janneth Venegas NP [Primary Care Provider] - 01/23/21 10:00 am Ruddy Wilkerson [ [facility] STAFF PHYSICIAN] - (Will be calling you with an appt.) Activity:: Activity as Tolerated Equipment/Supplies:: No Equipment Needed Diet:: As Tolerated Discharge Orders Discharge Orders: Discharge Order (Routine); Ordered 01/14/21 Ordered By: Skylar Weinberg Discharge Data Discharge Date/Time-TO BE ENTERED AT DEPARTURE: 01/14/21 13:49 DS: Summary Time Spent with Patient providing and/or coordinating discharge services: Greater than 30 minutes Status at Discharge Functional status at discharge: independent ambulation Overall status at discharge: patient is progressing back to baseline Mental Status: mental status grossly normal Speech and Movement: speech and movement normal Mood: congruent mood Affect: normal affect Exam Narrative Exam Narrative: Const: white female of stated age, no acute distress, pink dry and well perfused. HEENT: NC/AT. Normal facial exam. Eyes: PERRL. EOMI minimal horizontal nystagmus present. Neck: Supple. Trachea midline. Lungs: respirations even and unlabored. Lungs are clear. Cor: RRR no murmurs. Good radial pulses. no edema GI: Soft. non tender, positive bowel sounds. no masses. Neuro: A+O x 3. Normal speech, mentation. Cranial nerves II - XII grossly intact. Strength normal throughout. No ataxia. NIH 0. Ext: moves all extremities, no edema Skin: Warm and dry without rash. Psych Mental Status: mental status grossly normal Speech and Movement: speech and movement normal Mood: congruent mood Affect: normal affect DS: Data Vitals/I&O Vitals and I&O: Vital Signs Temperature 36.7 C 01/14/21 08:20 Temperature Source Tympanic 01/14/21 08:20 Pulse 68 01/14/21 08:20 Pulse Rhythm Regular 01/14/21 08:26 Pulse 68 01/13/21 04:20 Respiratory Rate 18 01/14/21 08:20 Respiratory Effort Non-Labored 01/14/21 08:26 Respiratory Depth Normal 01/14/21 08:26 Respiratory Pattern Normal 01/14/21 08:26 Blood Pressure 138/88 01/14/21 08:20 Blood Pressure Mean 93 01/13/21 03:46 Blood Pressure Position Supine 01/13/21 01:15 Pulse Oximetry 96 01/14/21 08:20 Oxygen Delivery Method Room Air 01/14/21 08:20 Oxygen Flow Rate 0 01/14/21 08:20 Pain Level 0 01/14/21 08:20 Comment 01/14/21 07:52 Intake & Output 01/13/21 01/13/21 01/14/21 11:59 23:59 11:59 Intake Total 412.5 / 2381.25 1968.75 / 2381.25 1000 / 1000 Balance 412.5 / 2381.25 1968.75 / 2381.25 1000 / 1000 Weight 84.6 kg Intake: IV 412.5 / 2381.25 1968.75 / 2381.25 1000 / 1000 Other: Urine Color Yellow Yellow Urine Appearance Clear Clear Clear Comment Patient reported that she voided in the toliet. Patient voided in the toilet independently. Voiding Methods Toilet Toilet Toilet Data Completed and Pending Labs on day of discharge: Labs from last 24 hours 01/14/21 01/14/21 01/13/21 06:04 06:04 03:25 WBC 7.37 RBC 4.07 Hgb 12.4 Hct 36.4 MCV 89.4 MCH 30.5 MCHC 34.1 RDW 12.9 Plt Count 233 MPV 9.4 Immature Gran % 0.4 Neutrophils % 61.8 Lymphocytes % 28.0 Monocytes % 7.5 Eosinophils % 1.8 Basophils % 0.5 Nucleated RBC % 0 Absolute Neutrophils 4.56 Absolute Lymphocytes 2.06 Absolute Monocytes 0.55 Absolute Eosinophils 0.13 Absolute Basophils 0.04 Sodium 144 Potassium 4.3 D Chloride 111 H Carbon Dioxide 23.1 Anion Gap 9.9 BUN 9 D Creatinine 0.9 Estimated GFR/1.73 m2 >= 60.00 Glucose 108 H Calcium 7.8 L Magnesium 2.2 SARS-CoV-2 (PCR) Negative [facility] Medical History Anemia Fibroid uterus HTN (hypertension) Hyperglycemia Hypertriglyceridemia Menorrhagia Treated with OCPs [id number]. Mirena IUD 2014 not effective. 06/19/15 hysteroscopic myomectomy. Surgical History Hysteroscopy (06/19/15) hysteroscopic myomectomy. 3/4 of fibroid removed. Family History Mother Heart disease Maternal Grandfather , 70s Heart disease Maternal Grandmother , 90 Diabetes Asthma Son No problems noted. Daughter No problems noted. Father , Age 69 No problems noted. Social History Smoking/Tobacco Use Status: Never Smoking risk assessment performed?: Yes Alcohol Intake: current Alcohol Intake frequency: a few times a month Alcohol type: hard liquor Drug use: Never Caregiver/Support person: No Household members: significant other and children Housing: house Communication Needs: None Do you need help understanding health information?: Never Pets and animals: No Sexually active: Yes Do you think of yourself as: straight/heterosexual Current gender identity: female What is your relationship status?: living with partner How often do you talk on the phone with friends or family?: three or more times per week How often do you get together with friends or relatives?: three or more times per week How often do you attend mu-ism or buddhist services?: decline to answer Do you belong to any clubs or organized social groups?: no Panel score (0-1 are the most socially isolated patients): 2 What type of physical activity do you participate in: walking Duration: 45-60 minutes/day Frequency: 5-6 times per week Tatiana/Scientology: None Special tatiana needs: No Seatbelt use: always Helmet use: Yes Drive intox or ride w/intox horse and wagon driver: No Do you feel safe at home: Yes
[2021-01-14] MEDS: Normal Saline Flush 10 ML SYR IVP (09:23)
--- NOTE | 2021-01-14 09:30 | PT.INDS ---
Date of service: 01/14/21 Time of Service: 09:30 PT Notes Visit Reasons: Vertigo Physical Therapy Inpatient Discharge Summary Date: 01/14/2021 Date of service: 01/13/2021 through 01/14/2021 Precautions: Fall. Standard. Activity as tolerated. Subjective: Yolis reports increased queasiness with turning of head from the left to the right while doing the Wayne maneuver but indicated that she felt a lot better after the first attempt was completed. She was able to tolerate long distance ambulation in the hallway with minimal lightheadedness. She verbalizes that she will continue to perform home exercises for the next 2 to 3 days at least twice a day until her symptoms resolve. Objective: General Observation: No lines attached Mental Status: Alert and oriented as to person, place, time, and purpose. Able to pay attention, focus, and respond appropriately. Pain: 0/10 ROM: Right Upper Extremity: Shoulder Flexion WFL. Shoulder abduction WFL. Shoulder ER/IR WFL. Elbow flexion WFL. Forearm pronation/supination WFL. Wrist flexion WFL. Opening and closing of hand WFL. Left Upper Extremity: Shoulder Flexion WFL. Shoulder abduction WFL. Shoulder ER/IR WFL. Elbow flexion WFL. Forearm pronation/supination WFL. Wrist flexion WFL. Opening and closing of hand WFL. Right Lower Extremity: Hip flexion WFL. Hip abduction WFL. Hip ER/IR WFL. Knee flexion WFL. Knee extension. Ankle dorsiflexion/eversion WFL. Ankle plantarflexion/inversion WFL. Left Lower Extremity: Hip flexion WFL. Hip abduction WFL. Hip ER/IR WFL. Knee flexion WFL. Knee extension. Ankle dorsiflexion WFL. Ankle plantarflexion WFL. Strength: Right Upper Extremity: Shoulder flexors 5/5. Shoulder abductors 5/5. Shoulder ER 5/5. Shoulder IR 5/5. Forearm pronators 5/5. Forearm supinators 5/5. Elbow flexors 5/5. Elbow extensors 5/5. Purchasing Analyst strong. Left Upper Extremity: Shoulder flexors 5/5. Shoulder abductors 5/5. Shoulder ER 5/5/ Shoulder IR 5/5. Forearm pronators 5/5. Forearm supinators 5/5. Elbow flexors 5/5. Elbow extensors 5/5. Purchasing Analyst strong. Right Lower Extremity: Hip flexors 5/5. Hip abductors 5/5. Hip external rotators 5/5. Hip internal rotators 5/5. Knee flexors 5/5. Knee extensors 5/5. Ankle dorsiflexors/evertors 5/5. Ankle plantarflexors/invertors 5/5. Left Lower Extremity: Hip flexors 5/5. Hip abductors 5/5. Hip external rotators 5/5. HIp internal rotators 5/5. Knee flexors 5/5. Knee extensors 5/5. Ankle dorsiflexors/evertors 5/5. Ankle plantarflexors/invertors 5/5. Bed Mobility/Transfers: Rolling independent Supine to sit independent Sit to supine independent Sit to stand independent Stand to sit independent Bed to chair independent Chair to bed independent Gait: Patient is able to navigate up to 300 feet of level surface ambulation without an assistive device with full weight bearing requiring only standby assist with a mild path deviation noted and with mild lightheadedness that resolved with rest. Balance: Static Sitting: Normal Dynamic Sitting: Normal Static Standing: Good Dynamic Standing: Fair Special Tests: Mobility Limitations Standardized Measure [facility] AM-PAC 6 clicks Basic Mobility Inpatient Short Form: Raw Score: 24 CMS Score: 0% deficit Assessment: Patient seen before intake of Meclizine and Benadryl. She reported relief from symptoms with level of waviness now less than 1 out of 5 with 5 being the most wavy after performance of the left Wayne Maneuver. She has good mastery of the Wayne maneuver for the left side and has been given a copy of exercise along with gaze stabilization techniques and habituation exercises for the trunk. Patient presents with clinical signs and symptoms consistent with current/admitting diagnoses that have resulted to mobility limitations, gait instability, generalized weakness, and impairment of motor control as demonstrated by the following impairment level findings: 1. Waviness, sensation of room spinning not significantly decreased 2. Impaired standing balance 3. Impaired activity tolerance Impairments are contributing to the following functional limitations: 1. Increase completion time for mobility ADL performance Goals: Goals X1 week 1. Supine-Sit independent MET 2. Sit-Supine independent MET 3. Sit-Stand independent MET 4. Stand-Sit independent MET 5. Bed-Chair independent MET 6. Chair-Bed independent MET 7. Independent gait on level surface with use of no AD for at least 500 feet without report of pain nor dyspnea NOT MET 8. Independent stair negotiation while holding onto 3 rails for at least 5 steps without report of pain nor dyspnea MET 9. Independent with home exercise program MET 10. Good static and dynamic standing balance/tolerance NOT MET DISCHARGE RECOMMENDATIONS: Home when medically cleared by hospitalist. Continue with BPPV exercises as recommended. TREATMENT CODE/TIME: 46901 x 48 minutes beginning at 9:30 AM. Thank you for the opportunity to participate in the care of this patient. Bria Tobias PT, DPT, CLT [facility] [place], [place]
[2021-01-14] MEDS: Meclizine 25 MG TAB PO (11:00)
--- NOTE | 2021-01-14 18:56 | PDOC.CMDIS ---
- If Service Date Differs Date of service: 01/14/21 Time of Service: 18:56 LACE Index Scoring Tool - Questions: Length of Stay (in days): 1 Acuity (Admit via E.D.?): Yes E.D. Visits: 1 - Answers: Total Score: 5 Risk of Readmission: Low Risk Care Management Discharge Reason for Hospitalization: Vertigo Discharge Plan: Yolis will return home with no new services today. Her s/o will drive her home via private vehicle. She will follow up with her PCP and discharge plan of care. She is happy to be going home. Patient/Family Education Needs: Review discharge instructions, discussion of self care needs including ask me three.
== END 2021-01-14 13:49 | disposition home or self-care (01) ==
LOC: ER 04:19 → MS 04:52
PROVIDERS: Internal Medicine; Admitting Provider General Practice; Emergency Provider Emergency Medicine; Visit Provider General Practice
DX: R42 Dizziness and giddiness (principal); H55.09 Other forms of nystagmus; R26.81 Unsteadiness on feet; I10 Essential (primary) hypertension; E78.5 Hyperlipidemia, unspecified; D64.9 Anemia, unspecified; E78.1 Pure hyperglyceridemia; Z20.822 Contact with and (suspected) exposure to COVID-19
CPT/HCPCS: 36415; 70496; 70498; 70553; 80048; 80053; 87635; 93005; 96361; 96374; 96375; 97112; 97162; 97530; 99285; 83735; 85025; 93010; 99217; 99219; G0378; J1200; J2405; J3360; J3490

== ENCOUNTER 2021-04-17 03:49 | Outpatient (CLI) | payer BC, SELFPAY ==
--- NOTE | 2021-04-17 07:00 | DI.MRI_ITS ---
Exam(s) MR BRAIN WO/W EXAM: MR BRAIN WO/W CLINICAL HISTORY: F/U MASS,MENINGIOMA,D32.9 TECHNIQUE: Multiplanar multisequence MRI of the brain was performed. Postcontrast axial and coronal T1 weighted images were also obtained. COMPARISON: MR MR BRAIN WO/W from 01/13/2021 FINDINGS: The ventricular system is normal in appearance. There are minimal signal abnormalities identified T2 weighted and FLAIR imaging in periventricular wh ite matter consistent with minimal microvascular ischemic changes. Previously noted left frontal and left temporal enhancing masses seen on MRI of January 13 are unchange d on today's examination, findings are consistent with the stated diagnosis of meningioma. Masses ar e unchanged in size, the frontal mass measuring up to about 25 millimeters in diameter and temporal l obe mass measuring up to about 28 millimeters in diameter. The orbital and temporal bone structures appear intact as does the pituitary. Diffusion weighted imaging shows no evidence of infarction. Susceptibility weighted imaging shows no evidence of intracranial hemorrhage. There is normal flow void in the [place] vasculature. IMPRESSION: No significant interval change in appearance of presumed left-sided meningiomas. DATA REPOSITORY:
[2021-04-17] MEDS: Normal Saline Flush 10 ML SYR IVP (09:13)
[2021-04-17] MEDS: Gadoterate meglumine 20 ML VIAL 16 ML IVP (09:14)
== END 2021-04-17 04:09 ==
DX: D32.9 Benign neoplasm of meninges, unspecified (principal)
CPT/HCPCS: 70553

== ENCOUNTER 2021-10-06 02:40 | Outpatient (CLI) | payer BC, SELFPAY ==
--- NOTE | 2021-10-06 12:00 | DI.MAMMO_ITS ---
Exam(s) MAMMO SCREENING EXAM: MAMMO SCREENING CLINICAL HISTORY: screening TECHNIQUE: Mammograms were interpreted according to the usual protocol including computer analysis w [employer] CAD system, tomosynthesis and C-view imaging. COMPARISON: FINDINGS: The breasts are heterogeneously dense. No dominant mass or clumped microcalcification is identified in either breast. The current examination is compared with previous examinations including May 16 and there has been no gross interval change in appearance in comparison with the prior studies. IMPRESSION: No specific evidence of malignancy at this time. Routine screening examinations are suggested at yea rly intervals in this age group according to the ACS ACR guidelines. BI-RADS Category 1 - Negative Breast Density - Category C - Heterogeneously dense
== END 2021-10-06 03:00 ==
PROVIDERS: Visit Provider Nurse Practitioner Family
DX: Z12.31 Encounter for screening mammogram for malignant neoplasm of breast (principal)
CPT/HCPCS: 77063; 77067

== ENCOUNTER 2022-03-02 02:10 | Outpatient (CLI) | payer BC, SELFPAY ==
--- OUTSIDE RECORDS SUMMARY | 2022-03-02 02:14 | XMS_ITS | Encounter Summary ---
:[address] [facility] Address [address] [place] [address] Care Team Providers Name Role Phone Unknown, Provider Primary Care Provider Encounter Details Date Type Department Care Team Description 06/19/2015 Hospital Encounter [facility] - S Unknown, Pro Livier freire MD [address] [facility] [phone] [place] [address] (Work) [phone] Social History Tobacco Use Types Packs/Day Years Used Date Never Assessed Sex Assigned at Date Recorded Not on file documented as of this encounter Discharge Disposition Disposition Code Departure Means Destination Home or Self Senior Living documented in this encounter Plan of Treatment Not on filedocumented as of this encounter Visit Diagnoses Not on filedocumented in this encounter Care Teams Outbound Sales Consultant Relationship Specialty Start Date End Date Unknown, Provider, PCP - General 03/19/14 documented as of this encounter
--- OUTSIDE RECORDS SUMMARY | 2022-03-02 02:14 | XMS_ITS | Clinical Summary ---
:1965 Author Organization [facility] Address [address] [place] [address] Care Team Providers Name Role Phone Unknown, Provider Primary Care Provider Social History Tobacco Use Types Packs/Day Years Used Date Never Assessed Sex Assigned at Date Recorded Not on file Plan of Treatment Not on file Care Teams Retort Forker Relationship Specialty Start Date End Date Unknown, Provider, PCP - General 03/19/14
--- OUTSIDE RECORDS SUMMARY | 2022-03-02 02:14 | XMS_ITS | Encounter Summary ---
:1965 Author Organization [facility] Address [address] [place] [address] Care Team Providers Name Role Phone Unknown, Provider Primary Care Provider Encounter Details Date Type Department Care Team Description 04/28/2020 Lab Requisition [facility] Hilda Hernandez E ncounter for other Pathology & STREAMING MEDIA SPECIALIST general examination Laboratory Medicine [address] [phone] [place] [address] Social History Tobacco Use Types Packs/Day Years Used Date Never Assessed Sex Assigned at Date Recorded Not on file documented as of this encounter Plan of Treatment Not on filedocumented as of this encounter Procedures Procedure Name Priority Date/Time Associated Comments Diagnosis PAP TEST Today 04/25/2020 3:45 Encounter for other Resul ts for this EDT general examination procedur e are in the results section. HUMAN PAPILLOMAVIRUS Today 04/25/2020 3:45 Encounter for oth er Results for this (HPV) DETECTION-HIGH EDT general examination procedure are in RISK TYPES the results section. documented in this encounter Results HUMAN PAPILLOMAVIRUS (HPV) DETECTION-HIGH RISK TYPES (04/25/2020 3:45 EDT) Human Papillomavirus NegativeComment: No Negative [facility] MED[facility] (HPV) Detection-High E6 or E7 mRNA is CENTER LABORATOR Y Types detected from HPV SERVICES types 16,18,31,33,35,39,45 ,51,52,56,58,59,66, and 68 by production internship mediated amplification. Specimen Pap Test - Cervix and/or Endocervix Performing Organization Address City/State/ZIP Code Phon e Number [facility] [address] [place] [address] SERVICES PAP TEST (04/25/2020 3:45 EDT) Specimens A. Cervix and/or [facility] MEDICAL Endocervix , ThinPrep CENTER Imaging System with LABORATORY Manual Evaluation SERVICES Specimen Adequacy Satisfactory for Evaluation - transformation zone component present [facility] MEDICAL Scant due to excessive inflammation K[facility] LABORATORY SERVICES General Negative for [facility] intraepithelial CENTER lesion or malignancy LABORATORY SERVICES Attestation . [facility] Electronically CENTER signed by MARK Huggins CT(ASCP ) on SERVICES 05/06/2020 at 15 26 Clinical History SEE ORDER COMMENTS [facility] SERVICES HPV The result for the Human Pap illomavirus (HPV) Detection-High Risk Types is Negative. No E6 or E7 mRNA is detected from HPV types 16,18,31,33,35,39,45,51,52,56,58,59,66, and 68 by production internship mediated [facility] amplification.Testing was pe rformed on specimen [id number] and was resulted on 05/06/2020 1523 EDT by MARIAH, LAB INSTRUMENT RESULTS IN [facility] SERVICES Performing Lab [facility] SERVICES Scanned Images [facility] SERVICES Specimen Pap Test - Cervix and/or Endocervix Performing Organization Address City/State/ZIP Code Phon e Number [facility] [address] [place] [address] SERVICES documented in this encounter Visit Diagnoses Diagnosis Encounter for other general examination documented in this encounter Care Teams Lean Process Deployment Consultant Relationship Specialty Start Date End Date Unknown, Provider, PCP - General 03/19/14 documented as of this encounter
--- OUTSIDE RECORDS SUMMARY | 2022-03-02 02:15 | XMS_ITS | Encounter Summary ---
:1965 Author Organization [facility] Address [address] [place] [address] Care Team Providers Name Role Phone Unavailable Primary Care Provider Unavailable Encounter Details Date Type Department Care Team Description 11/13/2007 Results Only [facility]ilda Haddad od, HOB MACHINE OPERATOR conversion [address] [place] [phone] (Wo rk) Social History Tobacco Use Types Packs/Day Years Used Date Never Assessed Sex Assigned at Date Recorded Not on file documented as of this encounter Plan of Treatment Not on filedocumented as of this encounter Procedures Procedure Name Priority Date/Time Associated Comments Diagnosis HPV DETECTION, HIGH Routine 11/13/2007 15:50 Resu lts for this RISK TYPES EDT procedure are i n the results section. CYTOPATHOLOGY Routine 11/13/2007 0:00 Results for this EDT procedure are i n the results section. documented in this encounter Results HUMAN PAPILLOMA VIRUS DNA TEST (11/13/2007 15:50 EDT) Specimen Description Cervix, ThinPrep [facility] vial Result Negative for HPV [facility] types 16, 18, 31, 33, 35, 39, 45, 51, 52, 56, 58, 59, and 68. Report Status Final [facility] [id number] Specimen Performing Organization Address City/State/ZIP Code Phon e Number [facility] [address] [place] [address] SERVICES [facility] [address] [place] [address] CYTOPATHOLOGY (11/13/2007 0:00 EDT) Pathology Report: CYTOPATHOLOGY REPORT [facility] Reports generated via electronic interface contain ella ginal data; however they are lacking the format of the original re port. Caution should be taken when reading/interpreting unfo rmatted reports. Name: ? GINA PUENTE ? Accession #: ? [id number] : ? 1965 (Age: 42) ??F ?Collect Date: ? 10/15 Location: ? [facility] ? Receive Date : ? 11/14/2007 Provider: ?HILDA NORMAN HOB MACHINE OPERATOR Copy to: ? Specimen/Source: ? ThinPrep Pap Test, Cervix/Endocervix, processed on [employer] ThinPrep Imaging System, with manual evaluation Last Menstrual Period: ? 11/08/07 Hormonal/Contraceptive Status: ? Oral contraceptives Other: ? HPVDX - HPV testing requested regardless of diag nosis on current ThinPrep Pap test. ? SPECIMEN ADEQUACY ? Satisfactory for Evaluation - transformation zone component present GENERAL CATEGORIZATION ? Negative for Intraepithelial Lesion or Malignan cy ? Document reviewed and electronically signed by: ? JUAN Gan(ASCP) ? Report Date: ??11/20/2007 08:42 End of Report Specimen Performing Organization Address City/State/ZIP Code Phon e Number [facility] [address] [place] [address] SERVICES [facility] [address] [place] [address] documented in this encounter Visit Diagnoses Not on filedocumented in this encounter
--- OUTSIDE RECORDS SUMMARY | 2022-03-02 02:15 | XMS_ITS | Encounter Summary ---
:1965 Author Organization [facility] Address [address] [place] [address] Care Team Providers Name Role Phone Unknown, Provider Primary Care Provider Encounter Details Date Type Department Care Team Description 04/04/2015 Results Only [facility] Haydee Baeza MD [phone] [facility] [facility] [address] [phone] (Wo rk) Social History Tobacco Use Types Packs/Day Years Used Date Never Assessed Sex Assigned at Date Recorded Not on file documented as of this encounter Plan of Treatment Not on filedocumented as of this encounter Procedures Procedure Name Priority Date/Time Associated Diagnosis Comme [facility] SURGICAL PATHOLOGY Routine 04/04/2015 9:05 EDT Re sults for this procedure are i n the results section. documented in this encounter Results SURGICAL PATHOLOGY (04/04/2015 9:05 EDT) Pathology Report: SURGICAL PATHOLOGY REPORT [facility] Reports generated via electronic interface contain ella ginal data; LABORATORY however they are lacking the format of the original re port. SERVICES Caution should be taken when reading/interpreting unfo rmatted reports. Name: ? GINA PUENTE ? Accession #: ? [id number] ? : ? 1965 (Age: [age]) ??F ? Collect Date: ? 04/04/2015 ? Location: ? [facility] ? Receive Date: ? 04/05/20 15 ? Provider: HAYDEE STAPLETON MD Copy to: JULIET LACEY MD ? Final Pathologic Diagnosis: ENDOMETRIUM, BIOPSY: - ??Scant proliferative endometrium with extensive alfa akdown. - ??Benign endocervical mucosa. Document reviewed and electronically signed by: KEREN CANALES MD Report ??Date: 04/08/2015 14:59 By the signature above, the attending physician certif ies that he/she has personally conducted a gross and/or microscopic examin ation of the described specimens and rendered or confirmed the above diagnosi s. Specimen(s) Received: Endometrial bx Clinical History: Menorrhagia not responsive to Mirena/IUD Gross Description: ? Received in formalin labelled with proper patient identification (initials S, L) and endometrium is a n aggregate of red-brown hemorrhage (3.2 x 1.6 x 0.5 cm). Submitted in toto in 1-3. 04/07/2015 11:38 AM End of Report Specimen Performing Organization Address City/State/ZIP Code Phon e Number [facility] [address] [place] [address] SERVICES documented in this encounter Visit Diagnoses Not on filedocumented in this encounter Care Teams Certified Art Therapist Relationship Specialty Start Date End Date Unknown, Provider, PCP - General 03/19/14 documented as of this encounter
--- OUTSIDE RECORDS SUMMARY | 2022-03-02 02:15 | XMS_ITS | Encounter Summary ---
:1965 Author Organization [facility] Address [address] [place] [address] Care Team Providers Name Role Phone Unavailable Primary Care Provider Unavailable Encounter Details Date Type Department Care Team Description 10/26/2005 Results Only [facility] - Keyonna Gambino od, Hilda Cano, ACID TREATER conversion [address] [place] [phone] (Wo rk) Social History Tobacco Use Types Packs/Day Years Used Date Never Assessed Sex Assigned at Date Recorded Not on file documented as of this encounter Plan of Treatment Not on filedocumented as of this encounter Procedures Procedure Name Priority Date/Time Associated Diagnosis Comme nts CYTOPATHOLOGY Routine 10/26/2005 0:00 EST Results for this procedure are i n the results section . documented in this encounter Results CYTOPATHOLOGY (10/26/2005 0:00 EST) Pathology Report: CYTOPATHOLOGY REPORT [facility] Reports generated via electronic interface contain ella ginal data; however they are lacking the format of the original re port. Caution should be taken when reading/interpreting unfo rmatted reports. Name: ? GINA PUENTE ? Accession #: ? [id number] : ? 1965 (Age: 40) ??F ?Collect Date: ? 10/13 Location: ? [facility] ? Receive Date : ? 10/27/2005 Provider: ?HILDA NORMAN ACID TREATER Copy to: ? Specimen/Source: ? ThinPrep Pap Test, Cervix/Endocervix, processed on Virtual Ports ThinPrep Imaging System, with manual evaluation Last Menstrual Period: ? 09/13/05 Hormonal/Contraceptive Status: ? Oral contraceptives Other: ? HPVA - HPV testing requested if ASC-US on the current ThinPrep Pap test. ? SPECIMEN ADEQUACY ? Satisfactory for Evaluation - transformation zone component present - scant squamous epithelial component secondary to exc essive mucus GENERAL CATEGORIZATION ? Negative for Intraepithelial Lesion or Malignan cy ? Document reviewed and electronically signed by: ? ISABELA Kim(ASCP) ? Report Date: ??10/29/2005 13:03 End of Report Specimen Performing Organization Address City/State/ZIP Code Phon e Number [facility] [address] [place] [address] SERVICES [facility] [address] [place] [address] documented in this encounter Visit Diagnoses Not on filedocumented in this encounter
--- OUTSIDE RECORDS SUMMARY | 2022-03-02 02:15 | XMS_ITS | Encounter Summary ---
:1965 Author Organization [facility] Address [address] [place] [address] Care Team Providers Name Role Phone Unavailable Primary Care Provider Unavailable Encounter Details Date Type Department Care Team Description 12/18/2010 Results Only [facility] Alin Hernandez, BROOMCORN SORTER Laboratory Services - [address] King [address] [address] [place] [address] [phone] Social History Tobacco Use Types Packs/Day Years Used Date Never Assessed Sex Assigned at Date Recorded Not on file documented as of this encounter Plan of Treatment Not on filedocumented as of this encounter Procedures Procedure Name Priority Date/Time Associated Diagnosis Comme nts PAP TEST- RESULT Routine 12/18/2010 0:00 EDT Resu lts for this ONLY procedure are i n the results section. documented in this encounter Results PAP TEST- RESULT ONLY (12/18/2010 0:00 EDT) Pathology Report: CYTOPATHOLOGY REPORT ? [facility] ? LAB Reports generated via electr onic interface contain original data; ? however they are lacking the format of the original report. ? Caution should be taken when reading/interpreting unformatted reports. ? Name: ? LILIANE GNIA ? Accession #: ? [id number] ? : ? 1965 (Age: 45) ??F ?Collect Date: ? 12/18/2010 ? Location: ? [facility] ? R eceive Date: ? 12/21/2010 ? Provider: AMY EMERSON BROOMCORN SORTER ? Copy to: ? Final Report ? SPECIMEN ADEQUACY ? Satisfactory for Eval uation ? - transformation zone compon ent present ? GENERAL CATEGORIZATION ? Negative for Intraepi thelial Lesion or Malignancy ? Last Menstural Period: 4/26/ 2011 ? Hormonal/Contraceptive statu s: Oral contraceptives ? Specimen/Source: ??Pap Test, Cervix/Endocervix, ThinPrep Imaging System with ? manual evaluation ? Document reviewed and electr onically signed by: ? Pricila Mcneal, SCT( ASCP) ? Report ??Date: 05/12/ 2011 10:45 ? HPV with Pap Test ? Date Ordered: ? 0 12/24/2010 ? Status: ?? Signed Out ?Date Complete: ? 12/29/2010 ? By: ??System Interface ? Date Reported: ? 12/29/2010 ? Interpretation ? RESULT: Negative for HPV typ es 16, 18, 31, 33, 35, 39, 45, 51, 52, ? 56, 58, 59, and 68. ? Comments ? Document reviewed and electr onically signed by: ? System Interface ? Report date: 05/17/20 11 ? By the signature above, the attending physician certifies that he/she has ? personally conducted a gross and/or microscopic examination of the described ? specimens and rendered or co nfirmed the above diagnosis. ? End of Report ? Specimen Performing Organization Address City/State/ZIP Code Phon e Number [facility] [address] [place] [address] SERVICES [facility] [address] [place] [address] documented in this encounter Visit Diagnoses Not on filedocumented in this encounter
--- OUTSIDE RECORDS SUMMARY | 2022-03-02 02:15 | XMS_ITS | Encounter Summary ---
:[address] [facility] Address [address] [place] [address] Care Team Providers Name Role Phone Unavailable Primary Care Provider Unavailable Encounter Details Date Type Department Care Team Description 02/22/2002 Results Only [facility] - Philippe Michael CNM conversion [address] [facility] [address] [address] [place], [place] [id number] [place] [id number] [phone] Social History Tobacco Use Types Packs/Day Years Used Date Never Assessed Sex Assigned at Date Recorded Not on file documented as of this encounter Plan of Treatment Not on filedocumented as of this encounter Procedures Procedure Name Priority Date/Time Associated Diagnosis Comme nts CYTOPATHOLOGY Routine 02/22/2002 0:00 EDT Results for this procedure are i n the results section . documented in this encounter Results CYTOPATHOLOGY (02/22/2002 0:00 EDT) Pathology Report: CYTOPATHOLOGY REPORT [facility] Reports generated via electronic interface contain ella ginal data; however they are lacking the format of the original re port. Caution should be taken when reading/interpreting unfo rmatted reports. Name: ? GINA PUENTE ? Accession #: ? [id number] : ? 1965 (Age: 36) ??F ?Collect Date: ? 02/12 Location: ? [facility] ? Receive Date : ? 02/26/2002 Provider: ?PHILIPPE CHOWDARY CNM Copy to: ? Specimen/Source: ?ThinPrep Pap Test, Cervix/ Endocervix Last Menstrual Period: ? 03/21/01 Menstrual/ Status: ? Post ? SPECIMEN ADEQUACY ? Satisfactory for Evaluation - transformation zone component present GENERAL CATEGORIZATION ? Negative for Intraepithelial Lesion or Malignan cy ? Document reviewed and electronically signed by: ? JUAN Gan(ASCP) ? Report Date: ??03/01/2002 12:23 End of Report Specimen Performing Organization Address City/State/ZIP Code Phon e Number [facility] [address] [place] [address] SERVICES [facility] [address] [place] [address] documented in this encounter Visit Diagnoses Not on filedocumented in this encounter
--- OUTSIDE RECORDS SUMMARY | 2022-03-02 02:15 | XMS_ITS | Clinical Summary ---
:1965 Author Organization [facility] [place] [address] Care Team Providers Name Role Phone Janneth Venegas APRN Primary Care Provider Allergies Active Allergy Reactions Severity Noted Date Comments Coenzyme Q10 Rash Medium 01/27/2021 Medications Medication Sig Dispensed Refills Start Date End Date Status atorvastatin (Lipitor) TAKE ONE TABLET BY 0 11/26/19 21 Active 40 mg Tablet MOUTH AT BEDTIME meclizine (Antivert) TAKE ONE TABLET BY 0 01/17/2021 Active 25 mg Tablet MOUTH THREE TIMES A DAY NEEDED FOR DIZZINESS valsartan (Diovan) 80 TAKE ONE TABLET BY 0 1 Active mg Tablet MOUTH EVERY DAY fluticasone propionate 0 01/26/2021 Active (FLONASE) 50 mcg/actuation Tyler, Suspension norethindrone 0 01/26/2021 Activ e (Aygestin) 5 mg Tablet multivitamin Take 1 tablet by 0 Active (THERAGRAN) Tablet mouth daily. fish oil-omega-3 fatty Take 2 g by mouth 0 Active acids 1,000 mg Capsule daily. Immunizations Name Administration Dates Next Due Td, adult 11/26/2003 Social History Tobacco Use Types Packs/Day Years Used Date Never Smoker Smokeless Tobacco: Never Used Alcohol Use Standard Drinks/Week Comments Not Currently 0 (1 standard drink = 0.6 oz pure alcoho l) Sex Assigned at Date Recorded Female 06/21/2021 9:57 AM EST Last Filed Vital Signs Vital Sign Reading Time Taken Comments Blood Pressure 142/83 01/27/2021 10:49 AM EDT Pulse 73 01/27/2021 10:49 AM EDT Temperature 36.4 ??C (97.6 ??F) 01/27/2021 10:49 AM EDT Respiratory Rate - - Oxygen Saturation - - Inhaled Oxygen Concentration - - Weight 82 kg (180 lb 12.8 oz) 01/27/2021 10:49 AM EDT Height 170.2 cm (5' 7) 01/27/2021 10:49 AM EDT Body Mass Index 28.32 01/27/2021 10:49 AM EDT Plan of Treatment Health Maintenance Due Date Last Done Comments Covid-19 Vaccine (#1) 1972 HIV screen 1985 Hepatitis C Screening 1985 Tdap adult 1986 HPV test 1997 PAP Smear 1997 Breast Cancer Share Decision Needed 2007 Diabetes Screening (HgbA1C or Glucose) 2007 Colonoscopy 2012 Tetanus vaccine 11/25/2013 11/26/2003 Breast Cancer screening 2017 Zoster vaccine (1 of 2) 2017 Influenza (Flu) vaccine (1 of 1 - Influenza standard 04/15/2022 series) Insurance Payer Benefit Plan Subscriber ID Effective Dates Phone Address Type / Group [facility] [id number] 2020-Pres [id number] [address] [facility] [address] [facility] [address] Care Teams Head Counselor Relationship Specialty Start Date End Date Janneth Venegas, HAND MIXER PCP - General Family Medicine 01/20/[address] [place], [place] [address]
--- OUTSIDE RECORDS SUMMARY | 2022-03-02 02:15 | XMS_ITS | Encounter Summary ---
:1965 Author Organization [facility] Address [address] [place] [address] Care Team Providers Name Role Phone Unknown, Provider Primary Care Provider Encounter Details Date Type Department Care Team Description 03/18/2014 Results Only [facility] Alin Hernandez, PRODUCT PLANNER Laboratory Services - [address] King [address] [address] [place] [address] [phone] Social History Tobacco Use Types Packs/Day Years Used Date Never Assessed Sex Assigned at Date Recorded Not on file documented as of this encounter Plan of Treatment Not on filedocumented as of this encounter Procedures Procedure Name Priority Date/Time Associated Diagnosis Comme nts PAP TEST- RESULT Routine 03/18/2014 0:00 EDT Resu lts for this ONLY procedure are i n the results section. documented in this encounter Results PAP TEST- RESULT ONLY (03/18/2014 0:00 EDT) Pathology Report: CYTOPATHOLOGY REPORT [facility] Reports generated via electronic interface contain ella ginal data; however they are lacking the format of the original re port. Caution should be taken when reading/interpreting unfo rmatted reports. Name: ? GINA PUENTE ? Accession #: ? [id number] ? : ? 1965 (Age: 48) ??F ?Collect Da te: ? 03/18/2014 ? Location: ? [facility] ? Receive Date: ? 014 ? Provider: AMY HERNANDEZ PRODUCT PLANNER Copy to: JULIET LACEY MD ? Final Report SPECIMEN ADEQUACY ? Satisfactory for Evaluation - transformation zone component present GENERAL CATEGORIZATION ? Negative for Intraepithelial Lesion or Malignan cy ?? Last Menstrual Period: 03/04/14 Specimen/Source: ??Pap Test, Cervix/Endocervix, ThinPr ep Imaging System with manual evaluation Document reviewed and electronically signed by: ? Martha Galvan, JUAN(ASCP) ? Report ??Date: 03/21/2014 16:35 HPV with Pap Test ? Date Ordered: ? 03/21/2014 ? Status: ?? Signed Out ?Date Complete: ? 03/25/2014 ? By: ??S ystem Interface ? Date Reported: ? 03/25/2014 ? Interpretation RESULT: Negative for HPV. No E6 or E7 mRNA is detected from HPV types 16,18,31,3 3,35, 39,45,51,52,56,58,59,66, and 68 by occ med physician media minerva amplification. Comments Document reviewed and electronically signed by: ? System Interface ? Report date: 03/25/2014 By the signature above, the attending physician certif ies that he/she has personally conducted a gross and/or microscopic examin ation of the described specimens and rendered or confirmed the above diagnosi s. End of Report Specimen Performing Organization Address City/State/ZIP Code Phon e Number [facility] [address] [place] [address] SERVICES [facility] [address] [place] [address] documented in this encounter Visit Diagnoses Not on filedocumented in this encounter Care Teams Heel Sprayer First Relationship Specialty Start Date End Date Unknown, Provider, PCP - General 03/19/14 documented as of this encounter
--- OUTSIDE RECORDS SUMMARY | 2022-03-02 02:15 | XMS_ITS | Encounter Summary ---
:1965 Author Organization [facility] Address [address] [place] [address] Care Team Providers Name Role Phone Unknown, Provider Primary Care Provider Encounter Details Date Type Department Care Team Description 04/04/2015 Hospital Encounter [facility]- Christine Unknown, Provider, [facility] [address] [place] [address] [place] [address] (Work) [phone] Social History Tobacco Use Types Packs/Day Years Used Date Never Assessed Sex Assigned at Date Recorded Not on file documented as of this encounter Discharge Disposition Disposition Code Departure Means Destination Home or Self [facility] documented in this encounter Plan of Treatment Not on filedocumented as of this encounter Visit Diagnoses Not on filedocumented in this encounter Care Teams Munitions Handler Supervisor Relationship Specialty Start Date End Date Unknown, Provider, PCP - General 03/19/14 documented as of this encounter
--- OUTSIDE RECORDS SUMMARY | 2022-03-02 02:15 | XMS_ITS | Encounter Summary ---
:1965 Author Organization [facility] [place] [address] Care Team Providers Name Role Phone Janneth Venegas APRN Primary Care Provider Encounter Details Date Type Department Care Team Description 04/17/2021 Ancillary Procedure Radiology Library at Janneth Venegas APRN [facility] [id number] [place] [address] (Wo rk) [phone] Social History Tobacco Use Types Packs/Day Years Used Date Never Smoker Smokeless Tobacco: Never Used Alcohol Use Standard Drinks/Week Comments Not Currently 0 (1 standard drink = 0.6 oz pure alcoho l) Sex Assigned at Date Recorded Female 06/21/2021 9:57 AM EST documented as of this encounter Plan of Treatment Not on filedocumented as of this encounter Procedures Procedure Name Priority Date/Time Associated Diagnosis Comme nts FILM LIBRARY Routine 04/17/2021 11:52 AM Results for this STORAGE ONLY MR EDT procedure ar e in HEAD the results section. documented in this encounter Results Film Library- Storage Only MR Head (04/17/2021 11:52 AM EDT) Specimen (Source) Anatomical Location Collection Method / Collectio n Time Received Time / Laterality Volume Narrative RAD - 04/17/2021 11:52 AM EDT This exam is auto-finalizing. It's purpo se is for storage only. Janneth Venegas APRN IMG FILM LIBRARY ORDERABLES Performing Organization Address City/State/ZIP Code [facility]on [facility] [place] documented in this encounter Visit Diagnoses Not on filedocumented in this encounter Care Teams Gynaecological Oncologist Relationship Specialty Start Date End Date Janneth Venegas APRN PCP - General Family Medicine 01/20/[address] [place] [address] documented as of this encounter
--- OUTSIDE RECORDS SUMMARY | 2022-03-02 02:15 | XMS_ITS | Encounter Summary ---
:1965 Author Organization [facility] [place] [address] Care Team Providers Name Role Phone Janneth Venegas APRN Primary Care Provider Reason for Visit Consultation (Routine) - Closed Specialty Diagnoses / Procedures Referred By Contact Refer red To Contact Neurosurgery Diagnoses Meningioma Skylar Weinberg, Ruddy Shin MD [address] [place] [address] [place] [address] [place] [address] Phone: Fax: Referral ID Status Reason Start Date Expiration Date Visits V isits Requested Authorized [id number] Closed Consult, Test 01/15/2021 01/15/2022 3 3 & Treat PCP Updated and/or Approved Encounter Details Date Type Department Care Team Description 01/27/2021 Office Visit Neurosurgery at [facility] Ruddy Wilkerson MD [facility] [place] [address] NEUROSURGERY [phone] [place], [place] [address] (Wo rk) Social History Tobacco Use Types Packs/Day Years Used Date Never Smoker Smokeless Tobacco: Never Used Alcohol Use Standard Drinks/Week Comments Not Currently 0 (1 standard drink = 0.6 oz pure alcoho l) Sex Assigned at Date Recorded Female 06/21/2021 9:57 AM EST documented as of this encounter Last Filed Vital Signs Vital Sign Reading [...] Mass Index 28.32 01/27/2021 10:49 AM EDT documented in this encounter Progress Notes Ruddy Wilkerson MD - 01/27/2021 11:00 AM EDT [facility] DATE: 01/27/2021 NAME: Yolis Puente is a 55 y/o female seen in the neurosurgery clinic at the request of Skylar Weinberg APRN for evaluation of a brain mass. Within the last several weeks she developed an acute episode of severe vertigo that was present upon wakening. Her symptoms were severe and during evaluation in an outside hospital a CT and MRI of the brain were performed revealing an incidental L frontal and L temporal extra-axial mass concerning for meningioma. Her vertiginous symptoms have since improved although they have not completely abated. With respect to the tumor she denies headaches, nausea or emesis, vision changes, difficulty with speech, seizures, numbness, weakness, or paresthesias. No h/o prior tumors or malignancy. No h/o cranial irradiation. No prior imaging. She was adopted and her family hx isunknown. Her past medical history is notable for hypertension that is controlled with medications. No other cardiac disease including known CAD, IL, or arrhythmia. No pulmonary disease such as asthma or COPD. No hepatic, renal, or endocrine dysfunction. No tobacco use. Occasional alcohol use. 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 Prior surgeries include resection of a fibroid. No complication from general anesthesia. EXAM: Vitals Office Visit from 01/27/2021 in Neurosurgery at [facility] Weight 82 kg (180 lb 12.8 oz) Height 170.2 cm (5' 7) BSA (Calculated - sq m) 1.97 sq meters BMI (Calculated) 28.31 Temp 36.4 ??C (97.6 ??F) Temp src Temporal Heart Rate 73 BP 142/83 Patient Position Sitting On exam she was pleasant and interactive. Her spontaneous speech was fluent and appropriate. Repetition intact. PERRL. VFF. Vision grossly intact. Her strength was 5/5 on segmental motor exam and symmetric. No pronator drift. LT sensation was intact and symmetric. She was able to stand unassisted and ambulate with a normal gait. Respirations were even and unlabored. IMAGING: MRI of the brain was reviewed. There is a paramedian left frontal lobe extra- axial mass measuring approximately 2.5 x 2.5 cm as well as a posterior left temporal lobe mass with similar size measurements. Both exhibit homogenous contrast enhancement and there is a surrounding T2 hyperintense or CSF cleft consistent with extra-axial location. Some signal drop out suggestive of intra- tumoral calcifications. No significant local mass effect or surrounding edema. No other lesions noted. A/P: 55 y/o female seen for evaluation of two incidental extra-axial brain masses consistent with a meningioma. Her neurologic exam is normal and her recent episode of vertigo is unrelated to these tumors. The MRI was reviewed at length as well as the relevant surrounding anatomy and differential diagnosis favoring meningioma. The natural history of these tumors was outlined as well. Options for treatment were discussed including MRI surveillance with a short- interval scan (3months) and then annually, or intervention. At this point she is asymptomatic and has little to no surrounding edema. Based upon her young age, I do believe there is a chance that these could be associated with increased mass effect in the distant future and potentially require treatment. We reviewed surgical resection as well as radiosurgery. Based upon her lack of symptoms and the multifocal lesions, radiosurgery would be favored if treatment was desired. Agree with plan for observation for now. Will obtain a repeat MRI in 3 months and also review with radiation-oncology. All questions were answered. Ruddy Wilkerson MD documented in this encounter Plan of Treatment Not on filedocumented as of this encounter Visit Diagnoses Diagnosis Meningioma Benign neoplasm of cerebral meninges documented in this encounter Care Teams Truck Sales Manager Relationship Specialty Start Date End Date Janneth Venegas APRN PCP - General Family Medicine 01/20/[address] [place] [address] [address] [place] [address] documented as of this encounter
--- OUTSIDE RECORDS SUMMARY | 2022-03-02 02:15 | XMS_ITS | Encounter Summary ---
:1965 Author Organization [facility] [place] [address] Care Team Providers Name Role Phone Janneth Venegas APRN Primary Care Provider Encounter Details Date Type Department Care Team Description 03/10/2021 Telephone Neurosurgery [place] [facility] [place] Ruddy Wilkerson MD [facility] [place] [address] NEUROSURGERY [phone] [place], [place] [address] (Wo rk) Social History Tobacco Use Types Packs/Day Years Used Date Never Smoker Smokeless Tobacco: Never Used Alcohol Use Standard Drinks/Week Comments Not Currently 0 (1 standard drink = 0.6 oz pure alcoho l) Sex Assigned at Date Recorded Female 06/21/2021 9:57 AM EST documented as of this encounter Miscellaneous Notes Telephone Encounter - Juan Erickson - 05/25/2021 10:03 AM EDT MRI Brain completed at [facility] on 04/17/2021 with images in eDH Spoke with pt to schedule TOV with LTE on 06/23/2021 (Telemedicine Consent Form on file - verbal consent obtained) Mailed appt card Closing encounter Telephone Encounter - Alis Martell - 03/10/2021 7:55 AM EDT BC/BS [place], will need PA Patient needs f/u appointment(s): With LTE on/around 06/10/21 3 months TOV, f/u Meningioma, MRI Brain at [facility] Prior Telephone Encounter - Alis Martell - 03/10/2021 7:55 AM EDT Images from the original note were not included. Received: Today Ruddy Wilkerson [place] [facility] Yolis Puente will need a repeat MRI in 3 months at [facility]. ??I will call with results. ??Thank you documented in this encounter Plan of Treatment Not on filedocumented as of this encounter Visit Diagnoses Not on filedocumented in this encounter Care Teams Livestock Breeder Relationship Specialty Start Date End Date Janneth Venegas APRN PCP - General Family Medicine 01/20/21 [address] [place] [address] documented as of this encounter
--- OUTSIDE RECORDS SUMMARY | 2022-03-02 02:15 | XMS_ITS | Encounter Summary ---
:1965 Author Organization [facility] Address [address] [place] [address] Care Team Providers Name Role Phone Unavailable Primary Care Provider Unavailable Encounter Details Date Type Department Care Team Description 10/20/2004 Results Only [facility] - Keyonna Gambino od, Hilda Cano, PLUMBING FOREMAN conversion [address] [place] [phone] (Wo rk) Social History Tobacco Use Types Packs/Day Years Used Date Never Assessed Sex Assigned at Date Recorded Not on file documented as of this encounter Plan of Treatment Not on filedocumented as of this encounter Procedures Procedure Name Priority Date/Time Associated Diagnosis Comme nts CYTOPATHOLOGY Routine 10/20/2004 0:00 EST Results for this procedure are i n the results section . documented in this encounter Results CYTOPATHOLOGY (10/20/2004 0:00 EST) Pathology Report: CYTOPATHOLOGY REPORT [facility] Reports generated via electronic interface contain ella ginal data; however they are lacking the format of the original re port. Caution should be taken when reading/interpreting unfo rmatted reports. Name: ? GINA PUENTE ? Accession #: ? [id number] : ? 1965 (Age: 39) ??F ?Collect Date: ? 03/2005 Location: ? [facility] ? Receive Date : ? 10/21/2004 Provider: ?HILDA NORMAN PLUMBING FOREMAN Copy to: ? Specimen/Source: ?ThinPrep Pap Test, Cervix/ Endocervix Last Menstrual Period: ? 09/29/04 Other: ? HPVA - HPV testing requested if ASC-US on the current ThinPrep Pap test. ? SPECIMEN ADEQUACY ? Satisfactory for Evaluation - transformation zone component present GENERAL CATEGORIZATION ? Negative for Intraepithelial Lesion or Malignan cy ? Document reviewed and electronically signed by: ? Daphne Hidalgo [facility](ASCP) ? Report Date: ??10/22/2004 13:23 End of Report Specimen Performing Organization Address City/State/ZIP Code Phon e Number [facility] [address] [place] [address] SERVICES [facility] [address] [place] [address] documented in this encounter Visit Diagnoses Not on filedocumented in this encounter
--- OUTSIDE RECORDS SUMMARY | 2022-03-02 02:15 | XMS_ITS | Encounter Summary ---
:1965 Author Organization [facility] [address] Care Team Providers Name Role Phone Janneth Veneags APRN Primary Care Provider Reason for Visit Reason Onset Date Comments TeleHealth 06/18/2021 Encounter Details Date Type Department Care Team Description 06/18/2021 Telephone Neurosurgery at [facility] [place] [facility] [place] [address] NEUROSURGERY [phone] [place], [place] [address] (Wo rk) Social History Tobacco Use Types Packs/Day Years Used Date Never Smoker Smokeless Tobacco: Never Used Alcohol Use Standard Drinks/Week Comments Not Currently 0 (1 standard drink = 0.6 oz pure alcoho l) Sex Assigned at Date Recorded Female 06/21/2021 9:57 AM EST documented as of this encounter Miscellaneous Notes Telephone Encounter - Aure Brown RN - 06/18/2021 3:36 PM EDT Unable to reach this patient by phone to review their medications and allergies prior to their upcoming tele-appointment with the Neurosurgery provider. No message left. documented in this encounter Plan of Treatment Not on filedocumented as of this encounter Visit Diagnoses Not on filedocumented in this encounter Care Teams A Class Lineman Relationship Specialty Start Date End Date Janneth Venegas APRN PCP - General Family Medicine 01/20/[address] [place] [address] documented as of this encounter
--- OUTSIDE RECORDS SUMMARY | 2022-03-02 02:15 | XMS_ITS | Encounter Summary ---
:1965 [place] [address] Care Team Providers Name Role Phone Capo Pyle MD, Sarbjit Primary Care Provider Encounter Details Date Type Department Care Team Description 01/13/2021 Ancillary Procedure Radiology Library at N[facility] [address] [place] [address] [phone] Social History Tobacco Use Types Packs/Day Years Used Date Never Assessed Sex Assigned at Date Recorded Female 06/21/2021 9:57 AM EST documented as of this encounter Plan of Treatment Not on filedocumented as of this encounter Procedures Procedure Name Priority Date/Time Associated Diagnosis Comme nts FILM LIBRARY Routine 01/13/2021 3:54 PM Results f or this STORAGE ONLY MR EDT procedure ar e in HEAD the results section. documented in this encounter Results Film Library- Storage Only MR Head (01/13/2021 3:54 PM EDT) Specimen (Source) Anatomical Location Collection Method / Collectio n Time Received Time / Laterality Volume Narrative RAD - 01/13/2021 3:54 PM EDT This exam is auto-finalizing. It's purpo se is for storage only. Néstor Miller MD IMG FILM LIBRARY ORDERABLES Performing Organization Address City/State/ZIP Code Phon e Number [place], [place] documented in this encounter Visit Diagnoses Not on filedocumented in this encounter Care Teams Meat Wrapper Relationship Specialty Start Date End Date Sarbjit Scanlon MD PCP - General 07/07/10 01/19/21 [address] [place] [address] documented as of this encounter
--- OUTSIDE RECORDS SUMMARY | 2022-03-02 02:15 | XMS_ITS | Encounter Summary ---
:1965 Author Organization [facility] [place] [address] Care Team Providers Name Role Phone Janneth Venegas APRN Primary Care Provider Encounter Details Date Type Department Care Team Description 01/20/2021 Telephone Neurosurgery [place] [facility] [place] Ruddy Wilkerson MD [facility] [place] [address] NEUROSURGERY [phone] [place], [place] [address] (Wo rk) Social History Tobacco Use Types Packs/Day Years Used Date Never Assessed Sex Assigned at Date Recorded Female 06/21/2021 9:57 AM EST documented as of this encounter Miscellaneous Notes Telephone Encounter - Elisha De - 01/20/2021 5:53 PM EDT LM for pt to call back. LTE will be in the OR on 01/26/21 and appt needs to be rescheduled. 01/27 in the am is an option or 02/02/21 GABBY. documented in this encounter Plan of Treatment Not on filedocumented as of this encounter Visit Diagnoses Not on filedocumented in this encounter Care Teams Package Center Supervisor Relationship Specialty Start Date End Date Janneth Venegas APRN PCP - General Family Medicine 01/20/[address] [place] [address] documented as of this encounter
--- OUTSIDE RECORDS SUMMARY | 2022-03-02 02:15 | XMS_ITS | Encounter Summary ---
:1965 Author Organization [facility] [place] [address] Care Team Providers Name Role Phone TruJanneth sofia Jason NAJERA Primary Care Provider Encounter Details Date Type Department Care Team Description 06/23/2021 Telephone Neurosurgery at [facility] [place] [address] Social History Tobacco Use Types Packs/Day Years Used Date Never Smoker Smokeless Tobacco: Never Used Alcohol Use Standard Drinks/Week Comments Not Currently 0 (1 standard drink = 0.6 oz pure alcoho l) Sex Assigned at Date Recorded Female 06/21/2021 9:57 AM EST documented as of this encounter Miscellaneous Notes Telephone Encounter - Elisha De - 06/29/2021 5:[address] 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 If you could call her back at [phone] after 3pm at your earliest convenience, it would be greatly appreciated, Thank you, Kasey Telephone Encounter - Morales Mckinnon - 06/23/2021 4:32 PM EST Eduardo Wilkerson, Patient calling to inquire about her TOV with you at 3:20pm on 06/23. I let her know that you would call back when you could or we can reschedule her. Thanks, Hamida documented in this encounter Plan of Treatment Not on filedocumented as of this encounter Visit Diagnoses Not on filedocumented in this encounter Care Teams Supervisor Laboratory Relationship Specialty Start Date End Date Janneth Venegas APRN PCP - General Family Medicine 01/20/[address] [place] [address] documented as of this encounter
[2022-03-02 09:21] LABS: ALT 43 U/L (14-59); AST 24 U/L (15-37); Albumin 3.8 g/dL (3.4-5.0); Alkaline Phosphatase 96 U/L (46-116); Anion Gap 7.7 mmol/L (3-11); BUN 15 mg/dL (7-18); Bilirubin, Total 0.8 mg/dL (0.2-1.0); CO2 30.3 mmol/L (21.0-32.0); CREATININE 0.9 mg/dL (0.55-1.02); Calcium 8.9 mg/dL (8.5-10.1); Calculated LDL 58 mg/dL (<100); Chloride 105 mmol/L (98-107); Cholesterol 131 mg/dL (<200); Glucose 102 mg/dL (74-106); HDL Cholesterol 34 mg/dL (40-60); Potassium 3.1 mmol/L (3.5-5.1); Sodium 143 mmol/L (136-145); Triglyceride 199 mg/dL (<150)
== END 2022-03-02 02:11 | disposition home or self-care (01) ==
LOC: LBO 02:10
DX: Z00.00 Encounter for general adult medical examination without abnormal findings (principal); E78.5 Hyperlipidemia, unspecified
CPT/HCPCS: 36415; 80053; 80061

== ENCOUNTER 2022-03-19 11:05 | Outpatient (CLI) | payer BC, SELFPAY ==
[2022-03-19 12:29] LABS: Anion Gap 9.4 mmol/L (3-11); BUN 16 mg/dL (7-18); CO2 27.6 mmol/L (21.0-32.0); CREATININE 0.8 mg/dL (0.55-1.02); Chloride 105 mmol/L (98-107); Glucose 99 mg/dL (74-106); Potassium 3.3 mmol/L (3.5-5.1); Sodium 142 mmol/L (136-145)
== END 2022-03-19 11:06 | disposition home or self-care (01) ==
LOC: LOS 11:06
PROVIDERS: Visit Provider Nurse Practitioner Family
DX: E87.6 Hypokalemia (principal); Z51.81 Encounter for therapeutic drug level monitoring
CPT/HCPCS: 36415; 80048

== ENCOUNTER → 2022-05-31 01:59 | Outpatient (CLI) | payer BC, SELFPAY ==
--- NOTE | 2022-05-31 14:45 | DI.MRI_ITS ---
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 CONTRAST MATERIAL: IV Contrast: 16 mL of Dotarem contrast administered. COMPARISON: MR MR BRAIN WO/W from 04/17/2021 FINDINGS: VENTRICLES AND EXTRA AXIAL SPACES: Normal in size and morphology for the patient's age. HEMORRHAGE: None. CEREBRAL PARENCHYMA: No focus of restricted diffusion to suggest acute infarct. No space-occupying le yessica identified. Stable small foci of increased signal is seen in the white matter on the T2 FLAIR im ages consistent with microvascular ischemic disease. MIDLINE SHIFT: None. BRAINSTEM/CEREBELLUM: Normal. CALVARIUM: Normal. ENHANCEMENT: There has been no change in size of the enhancing extra-axial masses. The mass along th e left temporal lobe measures 2.8 x 2.1 cm. The mass in the left anterior cranial fossa measures 2.5 x 2.1 cm. No new enhancing masses are seen. VISUALIZED PARANASAL SINUSES/MASTOIDS: There is a tiny mucous retention cyst or polyp in the left max illary sinus. The remaining visualized paranasal sinuses and mastoid air cells are clear. [place]: Normal flow void. PITUITARY GLAND: Unremarkable. OTHER FINDINGS: IMPRESSION: Stable extra-axial masses presumed to be meningiomas. DATA REPOSITORY:
[2022-05-31] MEDS: Normal Saline Flush 10 ML SYR IVP (15:17)
== END ==
PROVIDERS: Visit Provider Neurological Surgery
DX: D32.9 Benign neoplasm of meninges, unspecified (principal)
CPT/HCPCS: 70553

== ENCOUNTER 2022-08-04 02:09 | Outpatient (CLI) | payer BC, SELFPAY ==
[2022-08-04 12:53] LABS: Anion Gap 8.6 mmol/L (3-11); BUN 13 mg/dL (7-18); CO2 28.4 mmol/L (21.0-32.0); CREATININE 0.9 mg/dL (0.55-1.02); Calcium 9.1 mg/dL (8.5-10.1); Chloride 106 mmol/L (98-107); Estimated GFR 75.97 (mL/min/1.73m2); Glucose 123 mg/dL (74-106); Potassium 3.2 mmol/L (3.5-5.1); Sodium 143 mmol/L (136-145)
== END 2022-08-04 02:10 | disposition home or self-care (01) ==
LOC: LOS 02:09
PROVIDERS: PCP Nurse Practitioner Family; Visit Provider Family Medicine
DX: Z00.00 Encounter for general adult medical examination without abnormal findings (principal); E87.6 Hypokalemia; L98.8 Other specified disorders of the skin and subcutaneous tissue; Z79.899 Other long term (current) drug therapy
CPT/HCPCS: 36415; 80048

== ENCOUNTER 2023-02-08 12:17 | Emergency (ER) | payer BC, SELFPAY ==
[2023-02-08] VITALS (10 sets, daily range): BP systolic 116–161; BP diastolic 71–96; PULSE 61–77; RESP 18; TEMP 36.2
--- NOTE | 2023-02-08 12:37 | W.ED.GENAD ---
Discharge Plan Disposition Patient Disposition: Home Condition: Improving Discharge Details Clinical Impression: Kidney stone on right side Primary Care Provider: Nahum Regan ED Provider: Chantal Castro Home Meds and New Rx's Prescriptions: New tamsulosin 0.4 mg capsule 0.4 mg PO QHS 7 Days Qty: 7 0RF Rx Instructions: Take one capsule by mouth at bedtime x 7 days ketorolac 10 mg tablet 10 mg PO Q8H PRN (Reason: kidney stone) 2 Days Qty: 7 0RF Rx Instructions: Take one tablet 3 times daily as needed for pain No Action Complete Multivitamin tablet 1 tab PO DAILY omega-3 fatty acids [Fish Oil Concentrate] 1,000 mg capsule 1,000 mg PO DAILY fluticasone propionate 50 mcg/actuation spray,suspension 2 spray MARIAELENA DAILY PRN (Reason: allergic rhinitis) Qty: 47.4 5RF Rx Instructions: administer into each nostril potassium chloride 20 mEq tablet extended release 20 meq PO DAILY Qty: 90 3RF atorvastatin 40 mg tablet 40 mg PO QHS Qty: 90 3RF Rx Instructions: . hydrochlorothiazide 25 mg tablet 25 mg PO QAM Qty: 90 3RF valsartan 80 mg tablet 80 mg PO QPM Qty: 90 3RF Discharge Instructions Instructions: Kidney Stones (ED) Additional Instructions: You have a 6 mm stone that is causing small amount of backup of fluid into your right kidney. Please call urology in the morning to make an appointment within the next 1-2 week. Please return to the ER for any fever, vomiting unable to keep down the medications or concerns. Please take the medications as prescribed. Follow up with primary care provider in 3-5 days. Return to ED sooner if any worsening or concerns. Increase oral fluids. Referrals: Roger Casiano MD [ [facility] STAFF PHYSICIAN] - 1 week Medical Decision Making 57-year-old female presents to the ER from urgent care with chief complaint of right lower quadrant abdominal pain and urinary hesitancy which began this morning. Patient states that she has had some right lower quadrant pain on and off for few weeks which she attributed to gas. She describes the pain as dull. It is intermittent. Denies any vomiting or diarrhea she does endorse mild amount of nausea no fever or chills. Bladder scan was performed by staffing administrator upon arrival which showed 0 to 30 cc. Only abdominal surgical history is a fibroid removal. She does have a history of menorrhagia, anemia and hysteroscopy. She is postmenopausal. Urinalysis obtained. We will hold off on labs for UA result. UA result shows moderate blood no leukocytes no nitrites CBC CMP and CT abdomen pelvis ordered. Differential diagnosis includes but not limited to appendicitis, kidney stone, pyelonephritis, gastroenteritis. CT shows a 6 mm stone at the UVJ with moderate hydronephrosis and a 9 x 13 mm stone in the lower pole of the right kidney. There is some mild right perinephric stranding. Discussed results with patient verbalized understanding. She feels much improved after the Toradol. Urology paged to inform of patient's need for close follow-up. Spoke with Dr. Casiano regarding patient case in details he recommends tamsulosin and follow-up with their office. Due to no infected urine no need for urgent or emergent intervention at this time. Did discuss plan of care with patient who verbalized understanding. We will give patient Toradol and tamsulosin to go home with. We will give patient a strainer to strain all of her urine. Given instructions to call follow-up with urology. This text was generated using [employer] dictation system, please disregard any oddities of phrase or misspellings. Lab Data Lab results reviewed: Yes I reviewed the patient's lab results. Labs: Laboratory Tests Range/Units 02/08/23 02/08/23 02/08/23 12:30 13:30 13:30 WBC (4.4-10.8) 10^3/uL 12.23 H RBC (3.93-5.22) 10^6/uL 4.86 Hgb (11.2-15.7) g/dL 14.0 Hct (36.0-46.0) % 41.2 MCV (80-95) fL 85 MCH (27.0-33.0) pg 28.8 MCHC (32.0-36.0) % 34.0 RDW (11.7-14.6) % 13.4 Plt Count (130-400) 10^3/uL 244 MPV (8.0-11.0) fL 9.3 Immature Gran % 0.4 Neutrophils % 85.5 Lymphocytes % 7.8 Monocytes % 5.7 Eosinophils % 0.3 Basophils % 0.3 Nucleated RBC % (0.0-0.3) % 0.0 Absolute Neutrophils (1.2-6.7) 10^3/uL 10.46 H Absolute Lymphocytes (1.2-3.4) 10^3/uL 0.95 L Absolute Monocytes (0.1-0.8) 10^3/uL 0.70 Absolute Eosinophils (0.0-0.7) 10^3/uL 0.04 Absolute Basophils (0.0-0.2) 10^3/uL 0.04 Sodium (136-145) mmol/L 141 Potassium (3.5-5.1) mmol/L 3.2 L Chloride (98-107) mmol/L 101 Carbon Dioxide (21.0-32.0) mmol/L 28.7 Anion Gap (3-11) mmol/L 11.3 H BUN (7-18) mg/dL 13 Creatinine (0.55-1.02) mg/dL 1.1 H Est GFR (CKD-EPI 2020) (mL/min/1.73m2) 59.34 Glucose (74-106) mg/dL 114 H Calcium (8.5-10.1) mg/dL 10.1 Total Bilirubin (0.2-1.0) mg/dL 0.7 AST (15-37) U/L 25 ALT (14-59) U/L 37 Alkaline Phosphatase (46-116) U/L 127 H Total Protein (6.4-8.2) g/dL 8.4 H Albumin (3.4-5.0) g/dL 4.6 Urine Color (Yellow) Yellow Urine Clarity (Clear) Clear Urine pH (5-8) 8.5 H Ur Specific [place] (1.005-1.025) 1.020 Urine Protein (Negative) mg/dL Negative Urine Ketones (Negative) mg/dL Negative Urine Blood (Negative) Moderate H Urine Nitrite (Negative) Negative Urine Bilirubin (Negative) Negative Urine Urobilinogen (Up to 0.2) mg/dL 0.2 Ur Leukocyte Esterase (Negative) Negative Urine RBC (0-2) HPF >50 H Urine WBC (0-5) HPF 0-2 Ur Epithelial Cells (Negative) HPF Rare Urine Crystals (Negative) HPF Negative Urine Bacteria (Negative) HPF Negative Urine Mucus (Negative) Negative Ur Culture Indicated? No Urine Glucose (Negative) mg/dL Negative HPI General Mode of arrival: ambulatory. Date/Time Provider Initiated Documentation: 02/08/23 12:19. Limitations to Documentation: no limitations. Information obtained by: patient, RN notes reviewed and old records reviewed. HPI Narrative: 57-year-old female presents to the ER from urgent care with chief complaint of right lower quadrant abdominal pain and urinary hesitancy which began this morning. Patient states that she has had some right lower quadrant pain on and off for few weeks which she attributed to gas. She describes the pain as dull. It is intermittent. Denies any vomiting or diarrhea she does endorse mild amount of nausea no fever or chills. Bladder scan was performed by staffing administrator upon arrival which showed 0 to 30 cc. Only abdominal surgical history is a fibroid removal. She does have a history of menorrhagia, anemia and hysteroscopy. She is postmenopausal. Related Data Home Medications Medication Instructions Recorded Confirmed multivitamin,[id number] 1 tab PO DAILY 05/09/18 02/08/23 (Complete Multivitamin tablet) omega-3 fatty acids 1,000 mg 1,000 mg PO DAILY 04/20/19 02/08/23 capsule (Fish Oil Concentrate) fluticasone propionate 50 2 spray intranasal DAILY PRN 02/26/22 02/08/23 mcg/actuation nasal allergic rhinitis #47.4 grams spray,suspension potassium chloride 20 mEq 20 meq PO DAILY #90 tabs 03/30/22 02/08/23 tablet,extended release atorvastatin 40 mg tablet 40 mg PO QHS #90 tabs 05/18/22 02/08/23 hydrochlorothiazide 25 mg tablet 25 mg PO QAM #90 tabs 06/07/22 02/08/23 valsartan 80 mg tablet 80 mg PO QPM #90 tabs 08/17/22 02/08/23 ketorolac 10 mg tablet 10 mg PO Q8H PRN kidney stone 2 02/08/23 days #7 tabs tamsulosin 0.4 mg capsule 0.4 mg PO QHS 7 days #7 caps 02/08/23 Previous Rx's Medication Instructions Recorded fluticasone propionate 50 2 spray intranasal DAILY PRN 02/26/22 mcg/actuation nasal allergic rhinitis #47.4 grams spray,suspension potassium chloride 20 mEq 20 meq PO DAILY #90 tabs 03/30/22 tablet,extended release atorvastatin 40 mg tablet 40 mg PO QHS #90 tabs 05/18/22 hydrochlorothiazide 25 mg tablet 25 mg PO QAM #90 tabs 06/07/22 valsartan 80 mg tablet 80 mg PO QPM #90 tabs 08/17/22 ketorolac 10 mg tablet 10 mg PO Q8H PRN kidney stone 2 02/08/23 days #7 tabs tamsulosin 0.4 mg capsule 0.4 mg PO QHS 7 days #7 caps 02/08/23 Allergies Allergy/AdvReac Type Severity Reaction Status Date / Time coenzyme 10 Allergy Intermediate Hives/Itchi Uncoded 02/08/23 11:46 ng General Stated Complaint: Urinary INÉS: 3 Review of Systems All systems reviewed & are unremarkable except as noted in HPI and below Gastrointestinal Gastrointestinal: Reports abdominal pain and Reports nausea Genitourinary Genitourinary: Reports urinary hesitancy PFSH All Active Problems (Updated 02/08/23 @ 15:08 by Chantal Castro NP) Low HDL (under 40) (Acute 02/03/18) Hyperglycemia (Acute 02/03/18) History of anemia (Acute 02/03/18) Fibroids, submucosal (Acute 04/17/15) Allergic rhinitis (Chronic) HTN (hypertension) (Chronic) Vertigo (Acute) Meningioma (Acute) Annual physical exam (Acute) Skin lesion (Acute) Lipoma (Acute) Hip pain (Acute) Hypokalemia (Acute) Visit for suture removal (Acute) Kidney stone on right side (Acute) Medical History Anemia Fibroid uterus Hyperglycemia Hypertriglyceridemia Menorrhagia Treated with OCPs [id number]. Mirena IUD 2013 not effective. 06/19/15 hysteroscopic myomectomy. Surgical History Hysteroscopy (06/19/15) hysteroscopic myomectomy. 3/4 of fibroid removed. Family History Mother Heart disease Maternal Grandfather , 70s Heart disease Maternal Grandmother , 90 Diabetes Asthma Son No problems noted. Daughter No problems noted. Father , Age 69 No problems noted. Social History Smoking/Tobacco Use Status: Never Second Hand Exposure: Yes Smoking risk assessment performed?: Yes Alcohol Intake: current Alcohol Intake frequency: a few times a month Alcohol type: hard liquor Drug use: Never Substance use type: does not use Caregiver/Support person: No Household members: family, children and friend(s) Housing: house Communication Needs: None Do you need help understanding health information?: Never Pets and animals: No Sexually active: No Do you think of yourself as: straight/heterosexual Current gender identity: female What is your relationship status?: How often do you talk on the phone with friends or family?: once per week How often do you get together with friends or relatives?: decline to answer How often do you attend judaism or uatsdin services?: decline to answer Do you belong to any clubs or organized social groups?: no Panel score (0-1 are the most socially isolated patients): 0 What type of physical activity do you participate in: walking Duration: 30-45 minutes/day Frequency: 1-2 times per week Tatiana/Jehovah'S Witness: No preference Special tatiana needs: No Seatbelt use: always Helmet use: Yes Helmet use: always Drive intox or ride w/intox driver utility worker: No Do you feel safe at home: Yes Do you feel safe in your relationship?: Yes Exam Narrative Exam Narrative: Constitutional: Alert and oriented x3. Appears stated age. Normal body habitus. Head: Normocephalic, no trauma. Eyes: Pupils PERRL, Red reflex noted, EOM's intact. Eyelids symmetrical without lesions, discharge, or swelling. ENT: Bilateral TM's WNL, External ear normal to inspection, no mastoid TTP, swelling, or erythema, Nasal turbinates WNL, no nasal discharge. Normal dentition, Posterior pharynx WNL, no exudate. Chest: RRR, Normal S1, S2, distal pulses intact. Resp: Lungs clear to auscultation bilaterally, no wheezes, rales, or rhonchi. Abdomen: Soft, non-distended, Normoactive bowel sounds all 4 quads. Musculoskeletal: Normal gait, 5/5 strength to all four extremities. Skin: No suspicious rashes or lesions. Capillary refill less than 2 sec. Neurologic: Cranial nerves II-XII intact. Alert and oriented x 3. Motor: No deficits noted. Sensory: Intact bilaterally all 4 extremities. Reflexes: DTR's intact bilaterally.. Hematologic/Lymphatic: No ecchymosis, no lymphadenopathy. Course Vital Signs Vital signs: Vital Signs Temperature 36.2 C L 02/08/23 12:28 Pulse 77 02/08/23 12:28 Respiratory Rate 18 02/08/23 12:28 Blood Pressure 161/93 H 02/08/23 12:28 Temperature 36.2 C L 02/08/23 12:28 Pulse 77 02/08/23 12:28 Respiratory Rate 18 02/08/23 12:28 Respiratory Effort Normal, Non-Labored 02/08/23 12:32 Blood Pressure 161/93 H 02/08/23 12:28 Pain Level 3 02/08/23 12:28 PAWSS Have you Been Recently Intoxicated or Drunk Within the Last 30 days?: No Have you Ever Experienced Previous Episodes of Alcohol Withdrawal?: No Have you ever Experienced Withdrawal Seizures?: No Have you ever Experienced Delirium Tremens(DT)s?: No Have you ever undergone Alcohol Rehabilitation Treatment (i.e, inpt ot outpatient treatment programs)?: No Have you ever Experienced Blackouts?: No Have you ever Combined Alcohol with other Downers within the last 90 days?: No Have you ever Combined Alcohol with any other Substance of Abuse during the last 90 days?: No Result: 0 Vital Signs & Lab Results Vital Signs Most Recent Vital Signs: Most Recent Vital Signs Temp Pulse Resp BP 36.2 C L 77 18 161/93 H 02/08/23 12:28 02/08/23 12:28 02/08/23 12:28 02/08/23 12:28 Point of Care Results Nursing Point of Care Results: No Data to Display Lab Results 02/08/23 13:30 02/08/23 13:30 Blood Type / Crossmatch: No Data to Display Complete Blood Count: White Blood Count 12.23 10^3/uL (4.4-10.8) H 02/08/23 13:30 Red Blood Count 4.86 10^6/uL (3.93-5.22) 02/08/23 13:30 Hemoglobin 14.0 g/dL (11.2-15.7) 02/08/23 13:30 Hematocrit 41.2 % (36.0-46.0) 02/08/23 13:30 Platelet Count 244 10^3/uL (130-400) 02/08/23 13:30 Complete Metabolic Panel: Sodium 141 mmol/L (136-145) 02/08/23 13:30 Potassium 3.2 mmol/L (3.5-5.1) L 02/08/23 13:30 Chloride 101 mmol/L (98-107) 02/08/23 13:30 Carbon Dioxide 28.7 mmol/L (21.0-32.0) 02/08/23 13:30 BUN 13 mg/dL (7-18) 02/08/23 13:30 Creatinine 1.1 mg/dL (0.55-1.02) H 02/08/23 13:30 Est GFR (CKD-EPI 2020) 59.34 (mL/min/1.73m2) 02/08/23 13:30 Calcium 10.1 mg/dL (8.5-10.1) 02/08/23 13:30 Albumin 4.6 g/dL (3.4-5.0) 02/08/23 13:30 Glucose 114 mg/dL (74-106) H 02/08/23 13:30 Liver Function Panel: Alanine Aminotransferase (ALT/SGPT) 37 U/L (14-59) 02/08/23 13:30 Aspartate Amino Transf (AST/SGOT) 25 U/L (15-37) 02/08/23 13:30 Coagulation Panel: No Data to Display Cardiac Panel: No Data to Display Arterial Blood Gas: No Data to Display Venous Blood Gas: No Data to Display Pancreas Panel: No Data to Display Thyroid Panel: No Data to Display Infectious Disease: No Data to Display Blood Cultures: No Data to Display Toxicology Panel: No Data to Display
--- NOTE | 2023-02-08 13:00 | DI.CT_ITS ---
Exam(s) CT ABDOMEN PELVIS WO EXAM: CT ABDOMEN PELVIS WO CLINICAL HISTORY: Flank Pain. TECHNIQUE: Imaging Protocol: Axial computed tomography images with coronal and sagittal reformatted images were created and reviewed. Oral: / no COMPARISON: None FINDINGS: ABDOMEN: Lung Bases: Normal where visualized. Liver: Normal density. No measurable mass. Gallbladder and biliary tract: No radiodense calculus or dilation. Pancreas: Normal density, no abnormal calcifications or inflammatory process. Spleen: Normal. Kidneys: Normal size, contour and axis. 9 by 13 millimeter stone lower pole right kidney. Mild right perinephric stranding. Moderate right hydronephrosis secondary to a 6 millimeter stone at the urete rovesical junction. No masses seen. No left renal calculi. Adrenal glands: No masses seen. Lymph nodes: Within normal limits. Abdominal Aorta: Abdominal portion non-dilated. PELVIS: Bladder: Nearly empty. No visible mass. No gross wall thickening. Bowel: Sigmoid diverticulosis. No obstruction or bowel wall thickening. Peritoneal cavity: No ascites, collection or mesenteric inflammatory response. Reproductive organs: Within normal limits. Bones: Degenerative disc changes L5-S1. IMPRESSION: Moderate right hydronephrosis secondary to 6 millimeter stone at the ureterovesical junction. Additi onal 13 x 9 millimeter stone lower pole right kidney. RADIATION DOSE DELIVERED: 895.79mGy.cm Total DLP DATA REPOSITORY: All CT scans at this facility are submitted to the National Radiology Data Registry (NRDR) Dose Index Registry (DIR) with the [employer] (ACR). RADIATION OPTIMIZATION: All CT scans at this facility use at least one of these dose optimization te chniques: automated exposure control; mA and/or kV adjustment per patient size (includes targeted exa ms where dose is matched to clinical indication); or iterative reconstruction.
[2023-02-08 13:06] LABS: Bilirubin Negative (Negative); Blood Moderate (Negative); Clarity Clear (Clear); Glucose Negative (Negative); Ketones Negative (Negative); Leukocyte Esterase Negative (Negative); Nitrite Negative (Negative); Urobilinogen 0.2 mg/dL (Up to 0.2); pH 8.5 (5-8)
[2023-02-08 13:46] LABS: Abs Immature Grans 0.05 10^3/uL (0.0-0.06); Absolute Basophil Count 0.04 10^3/uL (0.0-0.2); Absolute Eosinophil Count 0.04 10^3/uL (0.0-0.7); Absolute Lymphocyte Count 0.95 10^3/uL (1.2-3.4); Absolute Neutrophil Count 10.46 10^3/uL (1.2-6.7); Basophils % 0.3; Eosinophils % 0.3; HCT 41.2 % (36.0-46.0); Immature Grans % 0.4; Lymphocytes % 7.8; MCH 28.8 pg (27.0-33.0); MCV 85 fL (80-95); MPV 9.3 fL (8.0-11.0); Monocytes % 5.7; Neutrophils % 85.5; Platelet Count 244 10^3/uL (130-400); RBC 4.86 10^6/uL (3.93-5.22); RDW 13.4 % (11.7-14.6); RDW-SD 41.3 fL; WBC 12.23 10^3/uL (4.4-10.8)
[2023-02-08] MEDS: Normal Saline 1,000 ML 1000 ML IV (13:47)
[2023-02-08] MEDS: Ondansetron 4 MG/2 ML VIAL IVP (13:47)
[2023-02-08] MEDS: Ketorolac 15 MG/ML VIAL IVP (13:48)
[2023-02-08 14:08] LABS: ALT 37 U/L (14-59); AST 25 U/L (15-37); Albumin 4.6 g/dL (3.4-5.0); Alkaline Phosphatase 127 U/L (46-116); Anion Gap 11.3 mmol/L (3-11); BUN 13 mg/dL (7-18); Bilirubin, Total 0.7 mg/dL (0.2-1.0); CO2 28.7 mmol/L (21.0-32.0); CREATININE 1.1 mg/dL (0.55-1.02); Calcium 10.1 mg/dL (8.5-10.1); Chloride 101 mmol/L (98-107); Estimated GFR 59.34 (mL/min/1.73m2); Glucose 114 mg/dL (74-106); Potassium 3.2 mmol/L (3.5-5.1); Sodium 141 mmol/L (136-145); Total Protein 8.4 g/dL (6.4-8.2)
[2023-02-08 14:18] LABS: Bacteria Negative HPF (Negative); Crystals Negative HPF (Negative); Epithelial Cells Rare HPF (Negative); Mucus Negative (Negative); RBC >50 HPF (0-2); WBC 0-2 HPF (0-5)
[2023-02-08 14:19] LABS: C & S Indicated? No
[2023-02-08] MEDS: Tamsulosin 0.4 MG CAPCR PO (15:11)
[2023-02-08] MEDS: Ketorolac 10 MG TAB 20 MG PO (15:15)
== END 2023-02-08 15:39 | disposition home or self-care (01) ==
PROVIDERS: Emergency Provider Registered Nurse Emergency; PCP Nurse Practitioner Family
DX: N20.0 Calculus of kidney (principal)
CPT/HCPCS: 36415; 80053; 96361; 96374; 96375; 99284; 74176; 81003; 81015; 85025; J1885; J2405

== ENCOUNTER 2023-02-28 13:32 | Outpatient (REF) | payer BC, SELFPAY ==
[2023-03-07 13:38] LABS: Source: Kidney
== END 2023-02-28 13:33 | disposition home or self-care (01) ==
LOC: LBN 13:32
PROVIDERS: PCP Nurse Practitioner Family; Visit Provider Nurse Practitioner Gerontology
DX: N20.0 Calculus of kidney (principal)
CPT/HCPCS: 82365

== ENCOUNTER → 2023-04-06 03:40 | Outpatient (CLI) | payer BC, SELFPAY ==
--- NOTE | 2023-04-06 08:15 | DI.MAMMO_ITS ---
Exam(s) MAMMO SCREENING EXAM: MAMMO SCREENING CLINICAL HISTORY: screening,Z12.39. TECHNIQUE: Bilateral full field digital CC and MLO mammographic images were obtained with 3D tomosyn thesis and utilizing computer aided detection (CAD). COMPARISON: Prior mammograms were reviewed. FINDINGS: Fibroglandular tissue pattern is moderately dense In the left breast there is noncalcified 5 x 4 mm nodule seen 3 cm superior to the nipple on the left MLO view, more evident than prior mammograms. On the left cc view there 2 noncalcified nodular dens ities now evident on the prior study. Further imaging recommended. No malignant-appearing microcalcification groups in this region nor elsewhere in either breast In the right breast there is a centrally located noncalcified 5 x 4 mm nodule located 3 cm in from th e nipple on the 3D MLO view. There is no significant architectural distortion nor skin thickening-retraction in either breast. IMPRESSION: Bilateral asymmetric densities-possible nodules which are more evident than on prior mammograms. Aroldo ateral spot compression views and bilateral breast ultrasound recommended. BI-RADS Category 0 - Assessment Incomplete: Need additional imaging evaluation Breast Density - Category C - Heterogeneously dense Breast density Category C or D implies that the patient has dense breast tissue. Dense breast tissue can make it harder to find cancer on a mammogram. Dense breast tissue is also associated with an incr eased risk of breast cancer. This information about the result of the mammogram report was provided to the patient to raise their awareness. Use this report when you speak with the patient about their risks for breast cancer, which includes their family history. At that time, you may recommend additional screening tests (Ultrasoun d or MRI) as these tests may add significant information. A negative radiographic report should not delay biopsy if a dominant or clinically suspicious mass is present. Up to ten percent of cancers are not identified on mammography. A negative report may reinforce clinical impression. Adenosis and dense breasts may obscure an underlying neoplasm. False positive reports average 6 to 10%. Patient will receive a letter notifying them of these results.
== END ==
PROVIDERS: PCP Nurse Practitioner Family; Visit Provider Nurse Practitioner Family
DX: Z12.31 Encounter for screening mammogram for malignant neoplasm of breast (principal)
CPT/HCPCS: 77063; 77067

== ENCOUNTER 2023-04-06 04:04 | Outpatient (CLI) | payer BC, SELFPAY ==
[2023-04-06 08:55] LABS: ALT 49 U/L (14-59); AST 32 U/L (15-37); Albumin 3.8 g/dL (3.4-5.0); Alkaline Phosphatase 105 U/L (46-116); Anion Gap 8.3 mmol/L (3-11); BUN 13 mg/dL (7-18); Bilirubin, Total 0.8 mg/dL (0.2-1.0); CO2 28.7 mmol/L (21.0-32.0); CREATININE 0.7 mg/dL (0.55-1.02); Calculated LDL 87 mg/dL (<100); Chloride 103 mmol/L (98-107); Cholesterol 149 mg/dL (<200); Estimated GFR 102.07 (mL/min/1.73m2); Glucose 103 mg/dL (74-106); HDL Cholesterol 38 mg/dL (40-60); Potassium 3.9 mmol/L (3.5-5.1); Sodium 140 mmol/L (136-145); Total Protein 6.6 g/dL (6.4-8.2); Triglyceride 122 mg/dL (<150)
[2023-04-07 10:55] LABS: Hepatitis C Ab w Rflx HCV PCR Negative (Negative)
[2023-04-07 11:15] LABS: HIV-1/2 Ag & Ab Screen Negative (Negative)
== END 2023-04-06 04:05 | disposition home or self-care (01) ==
LOC: LBO 04:05
PROVIDERS: PCP Nurse Practitioner Family; Visit Provider Nurse Practitioner Family
DX: E78.5 Hyperlipidemia, unspecified (principal); Z11.4 Encounter for screening for human immunodeficiency virus [HIV]; Z11.59 Encounter for screening for other viral diseases; I10 Essential (primary) hypertension
CPT/HCPCS: 36415; 80053; 80061; 86803; 87389

== ENCOUNTER → 2023-04-29 00:34 | Outpatient (CLI) | payer BC, SELFPAY ==
--- NOTE | 2023-04-29 | DI.MAMMO_ITS ---
Exam(s) US BREAST LT COMPLETE US BREAST RT COMPLETE MG MAMMO SCREEN CALL BACK BI EXAM: MG MAMMO SCREEN CALL BACK BI and bilateral U/S breast complete CLINICAL HISTORY: BILAT ASYMMETRICAL DENSITIES R92.8 ABNL MAMMO. TECHNIQUE: Craniocaudal and mediolateral oblique Full Field Digital Mammography views of the bilater al breast with Computer Aided Diagnosis followed by Tomosynthesis and bilateral breast ultrasound. COMPARISON: Comparison is made with prior examinations. FINDINGS: Mammography/Tomosynthesis: Masses/Architectural Distortion: There is again seen a nodule which persists in the upper central rig ht breast on the MLO view. There are 2 nodules seen in the retroareolar region of the left breast wh ich persists on the CC views. Microcalcifictions: No suspicious pleomorphic-type are seen. Skin Thickening/Nipple Retraction: None. Complete bilateral breast US: Echotexture: Normal appearance of the glandular tissue. Shadowing: No suspicious foci. Cyst: None. Solid lesions: There are 2 lesions in the 12 o'clock position of the left breast 2 cm from the nipple which are hypoechoic with echogenic areas most suggestive of benign lymph nodes. The larger measure s 0.6 cm. The smaller measures 0.5 cm. In the right breast at the 10 o'clock position 1 cm from the nipple there is a homogeneously hypoechoic radially oriented lesion measuring 0.5 cm. This may repr esent a benign lesion such as a lymph node or fibroadenoma. No suspicious solid masses are present. Ductal dilation: None. IMPRESSION: 1. No definite evidence of malignancy is noted at this time. 2. A six-month follow-up bilateral mammogram and ultrasound is requested for further evaluation. 3. The findings were discussed with the patient on the date of the examination. BI-RADS Category 3 - 6 month - Probably Benign Finding: Recommend follow-up imaging in 6 months Breast Density - Category B - Scattered areas of fibroglandular density Breast density Category C or D implies that the patient has dense breast tissue. Dense breast tissue can make it harder to find cancer on a mammogram. Dense breast tissue is also associated with an incr eased risk of breast cancer. This information about the result of the mammogram report was provided to the patient to raise their awareness. Use this report when you speak with the patient about their risks for breast cancer, which includes their family history. At that time, you may recommend additional screening tests (Ultrasoun d or MRI) as these tests may add significant information. A negative radiographic report should not delay biopsy if a dominant or clinically suspicious mass is present. Up to ten percent of cancers are not identified on mammography. A negative report may reinforce clinical impression. Adenosis and dense breasts may obscure an underlying neoplasm. False positive reports average 6 to 10%. Patient will receive a letter notifying them of these results.
== END ==
PROVIDERS: PCP Nurse Practitioner Family; Visit Provider Nurse Practitioner Family
DX: Z12.31 Encounter for screening mammogram for malignant neoplasm of breast (principal); R92.8 Other abnormal and inconclusive findings on diagnostic imaging of breast
CPT/HCPCS: 76642; 77063; 77067

== ENCOUNTER → 2023-07-06 02:40 | Outpatient (CLI) | payer BC, SELFPAY ==
--- NOTE | 2023-07-06 | DI.MRI_ITS ---
Exam(s) MR BRAIN WO/W EXAM: MR BRAIN WO/W CLINICAL HISTORY: F/U MENINGIOMA,D32.9. TECHNIQUE: Multiplanar multisequence MRI of the brain was performed. CONTRAST MATERIAL: IV Contrast: ML of Dotarem contrast administered. COMPARISON: MR MR BRAIN WO/W from 05/31/2022 FINDINGS: VENTRICLES AND EXTRA AXIAL SPACES: Normal in size and morphology for the patient's age. No change in size or appearance of the previously noted meningioma in the anterior right frontal region abutting the falx. Again measures 2.5 x 2.1 cm. There has been no change in size or appearance of the previo usly noted meningioma the left temporoparietal region measuring 2.8 by 2.1 cm. No new abnormalities are seen. HEMORRHAGE: None. CEREBRAL PARENCHYMA: No focus of restricted diffusion to suggest acute infarct. There there are few t iny high signal foci in the white matter consistent microvascular changes. MIDLINE SHIFT: None. BRAINSTEM/CEREBELLUM: Normal. CALVARIUM: Normal. VISUALIZED PARANASAL SINUSES/MASTOIDS: Clear. Orbits: Unremarkable. Pituitary: Normal. Vasculature: Normal flow voids. IMPRESSION: Stable appearance of left frontal and left temporoparietal meningiomas. DATA REPOSITORY:
[2023-07-06] MEDS: Gadoterate meglumine 20 ML SYRINGE 16 ML IVP (12:32)
[2023-07-06] MEDS: Normal Saline Flush 10 ML SYR IVP (12:32)
== END ==
PROVIDERS: PCP Nurse Practitioner Family; Visit Provider Neurological Surgery
DX: D32.9 Benign neoplasm of meninges, unspecified (principal)
CPT/HCPCS: 70553

== ENCOUNTER → 2023-10-27 02:48 | Outpatient (CLI) | payer BC, SELFPAY ==
--- NOTE | 2023-10-27 13:35 | DI.MAMMO_ITS ---
Exam(s) US BREAST LT COMPLETE US BREAST RT COMPLETE MG MAMMO DIAGNOSTIC BI EXAM: MG MAMMO DIAGNOSTIC BI BILATERAL COMPLETE BREAST ULTRASOUND CLINICAL HISTORY: 6 mo f/u, r92.8,z09, bilat lesions. TECHNIQUE: BOTH CC AND MLO VIEWS BOTH BREASTS mammographic images were obtained with 3D tomosynthesi s technique and utilizing computer aided detection (CAD). BILATERAL COMPLETE BREAST ULTRASOUND was performed including all 4 quadrants of both breasts, the ret roareolar regions, and both axillary regions. COMPARISON: All prior mammograms were reviewed, the most recent being March 2023. Diagnostic mammogram and ultrasound of 04/29/2023 was also reviewed. FINDINGS: DIAGNOSTIC BILATERAL MAMMOGRAM: There has been no significant change in the appearance and distribution of the fibroglandular tissue. There are no CAD designations. Previously described small benign-appearing nodular densities on the mammogram in both breasts are un changed. There are no new spiculated masses and there are no malignant-appearing microcalcification groups in either breast. No new significant architectural distortion or skin thickening-retraction BILATERAL COMPLETE BREAST ULTRASOUND: Left breast ultrasound: At the 12 o'clock position the previously described 6 x 2 mm wider than taller benign-appearing nodul e is unchanged from the prior ultrasound exam. Other previously described finding at the 12 o'clock position is also unchanged. Either represents b enign intramammary lymph node or just part of her breast pattern. Nevertheless, benign appearance. No new significant focal ultrasound findings in all 4 quadrants of the left breast. Right breast ultrasound: At the 10 o'clock position the previously described benign-appearing wider than taller benign-appeari ng nodule is unchanged, presently measuring 5 x 2 mm. Other finding at the nearby 11 o'clock positio n noted which has benign appearance but difficult to determine if this is a real finding or just part of her pattern. Most importantly, there are no new worrisome solid masses in either breast. The above findings josé miguel nue to exhibit unchanged benign appearances. IMPRESSION: 1. Stable benign-appearing mammographic findings in both breasts. 2. Stable benign-appearing ultrasound findings in both breasts Appropriate follow-up is to keep this patient on her yearly mammogram schedule implying that her next yearly mammogram would be in 6 months. Recommend follow-up repeat ultrasound at that time to ensure continued stability of the bilateral ultrasound findings.. The patient was informed of the findings and follow-up recommendations by myself prior to leaving the department today. BI-RADS Category 2 - Benign Findings Breast Density - Category C - Heterogeneously dense Breast density Category C or D implies that the patient has dense breast tissue. Dense breast tissue can make it harder to find cancer on a mammogram. Dense breast tissue is also associated with an incr eased risk of breast cancer. This information about the result of the mammogram report was provided to the patient to raise their awareness. Use this report when you speak with the patient about their risks for breast cancer, which includes their family history. At that time, you may recommend additional screening tests (Ultrasoun d or MRI) as these tests may add significant information. A negative radiographic report should not delay biopsy if a dominant or clinically suspicious mass is present. Up to ten percent of cancers are not identified on mammography. A negative report may reinforce clinical impression. Adenosis and dense breasts may obscure an underlying neoplasm. False positive reports average 6 to 10%. Patient will receive a letter notifying them of these results.
== END ==
PROVIDERS: PCP Nurse Practitioner Family; Visit Provider Nurse Practitioner Family
DX: Z12.31 Encounter for screening mammogram for malignant neoplasm of breast (principal); R92.8 Other abnormal and inconclusive findings on diagnostic imaging of breast
CPT/HCPCS: 76642; 77062; 77066; G0279

== ENCOUNTER 2024-03-26 22:57 | Outpatient (REF) | payer BC, SELFPAY ==
[2024-03-26 21:26] LABS: ALT 45 U/L (14-59); AST 25 U/L (15-37); Albumin 4.1 g/dL (3.4-5.0); Alkaline Phosphatase 94 U/L (46-116); Anion Gap 12.5 mmol/L (3-11); BUN 15 mg/dL (7-18); Bilirubin, Total 0.47 mg/dL (0.2-1.0); CO2 25.5 mmol/L (21.0-32.0); CREATININE 0.8 mg/dL (0.55-1.02); Calcium 9.4 mg/dL (8.5-10.1); Calculated LDL 112 mg/dL (<100); Chloride 104 mmol/L (98-107); Cholesterol 216 mg/dL (<200); Estimated GFR 86.42 (mL/min/1.73m2); Glucose 98 mg/dL (74-106); HDL Cholesterol 37 mg/dL (40-60); Potassium 3.6 mmol/L (3.5-5.1); Sodium 142 mmol/L (136-145); Triglyceride 335 mg/dL (<150)
== END 2024-03-26 22:58 | disposition home or self-care (01) ==
LOC: NCHCN 22:57
PROVIDERS: PCP Nurse Practitioner Family; Visit Provider Nurse Practitioner Family
DX: E78.5 Hyperlipidemia, unspecified (principal); I10 Essential (primary) hypertension
CPT/HCPCS: 80053; 80061

== ENCOUNTER 2024-05-03 01:37 | Outpatient (CLI) | payer BC, SELFPAY ==
--- NOTE | 2024-05-03 14:00 | DI.MAMMO_ITS ---
Exam(s) US BREAST LT COMPLETE US BREAST RT COMPLETE MG MAMMO DIAGNOSTIC BI EXAM: MG MAMMO DIAGNOSTIC BI AND COMPLETE BILATERAL BREAST ULTRASOUND CLINICAL HISTORY: 3-6 mo f/u R92.8 ABNL MAMMO Z09 FOLLOW UP EXAM. TECHNIQUE: BOTH CC AND MLO mammographic images of BOTH BREASTS were obtained with 3D tomosynthesis t echnique and utilizing computer aided detection (CAD). BILATERAL COMPLETE BREAST ULTRASOUND was performed, including all 4 quadrants both breasts as well as both axillary regions. COMPARISON: Prior mammograms were reviewed, as were prior ultrasound examinations FINDINGS: DIAGNOSTIC BILATERAL MAMMOGRAM: Fibroglandular tissue pattern is moderately dense. There are no CAD designations in either breast. There are no new significant mammographic findings in the right breast. In the left breast previously described benign-appearing nodular densities are again noted. One of t hese persists on spot compression CC view performed today, this at approximately 12 o'clock position. There are no malignant-appearing microcalcification groups at this location nor elsewhere in either b reast. There is no new architectural distortion or skin thickening-traction. BILATERAL COMPLETE BREAST ULTRASOUND: Left breast ultrasound: At the 12 o'clock position the previously described 6 by 2 millimeter wider than taller benign-appear ing nodule again remains unchanged. With respect to the other previously described finding at the 12 o'clock position, this is not able t o be seen on today's ultrasound examination, further evidence that it is benign and most probably jus t part of her breast pattern. No other focal ultrasound findings in left breast. Scanning of the left axilla is negative for adenopathy. Right breast ultrasound: At the 10 o'clock position the previously described small greater than taller well-defined small nodu le is again noted, appearing unchanged. 11 o'clock position the wider than taller benign-appearing 6 x 2 millimeter nodular density also jennie ins unchanged. There are no new focal ultrasound findings in all 4 quadrants of the right breast. Scanning of the r ight axilla is negative for adenopathy. IMPRESSION: Stable benign-appearing mammographic and ultrasound findings. Appropriate follow-up is to keep this patient on a yearly mammogram schedule. Recommend repeat ultra sound examination at the time for next mammogram, with earlier imaging if a self detected breast gutierrez ge is noted.. The patient was informed of the findings and follow-up recommendations by myself prior to leaving the department today. BI-RADS Category 2 - Benign Findings Breast Density - Category C - Heterogeneously dense Breast density Category C or D implies that the patient has dense breast tissue. Dense breast tissue can make it harder to find cancer on a mammogram. Dense breast tissue is also associated with an incr eased risk of breast cancer. This information about the result of the mammogram report was provided to the patient to raise their awareness. Use this report when you speak with the patient about their risks for breast cancer, which includes their family history. At that time, you may recommend additional screening tests (Ultrasoun d or MRI) as these tests may add significant information. A negative radiographic report should not delay biopsy if a dominant or clinically suspicious mass is present. Up to ten percent of cancers are not identified on mammography. A negative report may reinforce clinical impression. Adenosis and dense breasts may obscure an underlying neoplasm. False positive reports average 6 to 10%. Patient will receive a letter notifying them of these results.
== END 2024-05-03 01:57 ==
LOC: DI 01:37
PROVIDERS: PCP Nurse Practitioner Family; Visit Provider Nurse Practitioner Family
DX: Z09 Encounter for follow-up examination after completed treatment for conditions other than malignant neoplasm (principal); R92.8 Other abnormal and inconclusive findings on diagnostic imaging of breast
CPT/HCPCS: 76642; 77062; 77066; G0279

== ENCOUNTER 2024-11-26 06:22 | Day surgery (SDC) | payer BC, SELFPAY ==
[2024-11-26] VITALS (13 sets, daily range): BP systolic 95–143; BP diastolic 58–91; PULSE 58–74; RESP 12–16; TEMP 36–36.8; O2SAT 97–100; BMI 26.4
--- NOTE | 2024-11-26 06:45 | HPE_ITS ---
Date of service: 11/26/24 Time of Service: 06:45 Assessment and Plan Assessment and plan (1) Renal calculi: Status: Chronic Assessment and plan: We will proceed with right sided flexible ureteroscopy. Given the size of the stone, we will need to utilize a holmium laser for lithotripsy and likely need a staged procedure to insure all stone fragments have been addressed History of Present Illness History of Present Illness Chief Complaint: Kidney stone Narrative: This is a 59-year-old female with renal calculi. She initially presented with renal colic due to a distal ureteral stone. She passed the stone spontaneously and the chemical analysis is provdided elsewhere in this document. She has known upper tract stones that have been followed radiographically. Her known right lower pole stone has migrated to the midpole and she has had some increased right sided pain. She presents for ureteroscopy and holmium laser lithotripsy of her 9 mm stone. Review of Systems Narrative: No fevers or chills Allergic rhinitis. No vision change or dysphasia No diabetes or thyroid dysfunction No shortness of breath, cough or hemoptysis No chest pain or palpitations No nausea, vomiting, hepatitis, ulcers, jaundice Vertigo. No seizures, strokes or peripheral neuropathy No bleeding disorders No gout PFSH All Active Problems Dyslipidemia (Acute) Renal calculi (Chronic) Visit for suture removal (Acute) Hypokalemia (Acute) Hip pain (Acute) Lipoma (Acute) Skin lesion (Acute) Annual physical exam (Acute) Meningioma (Acute) Vertigo (Acute) HTN (hypertension) (Chronic) Allergic rhinitis (Chronic) Fibroids, submucosal (Acute 04/17/15) History of anemia (Acute 02/03/18) Hyperglycemia (Acute 02/03/18) Low HDL (under 40) (Acute 02/03/18) Medical History Anemia Hyperglycemia Fibroid uterus Hypertriglyceridemia Menorrhagia Treated with OCPs [id number]. Mirena IUD 2014 not effective. 06/19/15 hysteroscopic myomectomy. Surgical History Hysteroscopy (06/19/15) hysteroscopic myomectomy. 3/4 of fibroid removed. Family History Mother Heart disease Maternal Grandfather , 70s Heart disease Maternal Grandmother , 90 Diabetes Asthma Son No problems noted. Daughter No problems noted. Father , Age 69 No problems noted. Social History Smoking/Tobacco Use Status: Never Second Hand Exposure: Yes Smoking risk assessment performed?: Yes Alcohol Intake: current Alcohol Intake frequency: a few times a month Alcohol type: hard liquor Drug use: Never Substance use type: does not use Caregiver/Support person: No Household members: family, children and friend(s) Housing: house Communication Needs: None Do you need help understanding health information?: Never Pets and animals: No Sexually active: No Do you think of yourself as: straight/heterosexual Current gender identity: female What is your relationship status?: How often do you talk on the phone with friends or family?: once per week How often do you get together with friends or relatives?: decline to answer How often do you attend restoration or anabaptism services?: decline to answer Do you belong to any clubs or organized social groups?: no Panel score (0-1 are the most socially isolated patients): 0 What type of physical activity do you participate in: walking Duration: 30-45 minutes/day Frequency: 1-2 times per week Tatiana/Restorationist: No preference Special tatiana needs: No Seatbelt use: always Helmet use: Yes Helmet use: always Drive intox or ride w/intox hammer driver: No Do you feel safe at home: Yes Do you feel safe in your relationship?: Yes Meds Allergies and Home Medications Allergies Allergy/AdvReac Type Severity Reaction Status Date / Time coenzyme 10 Allergy Intermediate Hives/Itchi Uncoded 11/26/24 06:35 ng Home Medications ?Medication ?Instructions ?Recorded ?Confirmed ?Type multivitamin,ye-uvth-tqzcyssv 1 tab PO DAILY 05/09/18 11/26/24 History (Complete Multivitamin tablet) omega-3 fatty acids 1,000 mg 1,000 mg PO DAILY 04/20/19 11/26/24 History capsule (Fish Oil Concentrate) atorvastatin 40 mg tablet 40 mg PO QHS #90 tabs 03/21/23 11/26/24 Rx ketorolac 10 mg tablet 10 mg PO Q8H PRN pain #9 tabs 07/19/23 11/26/24 Rx fluticasone propionate 50 2 spray intranasal DAILY PRN 03/26/24 11/26/24 Rx mcg/actuation nasal allergic rhinitis #47.4 grams spray,suspension hydrochlorothiazide 25 mg tablet 25 mg PO QAM #90 tabs 03/26/24 11/26/24 Rx potassium chloride 20 mEq 20 meq PO DAILY #90 tabs 03/26/24 11/26/24 Rx tablet,extended release valsartan 80 mg tablet 80 mg PO QPM #90 tabs 03/26/24 11/26/24 Rx Exam Neck Neck: normal visual inspection Resp Effort & Inspection: normal respiratory effort Auscultation: clear to auscultation bilaterally Cardio Rate: regular rate Rhythm: regular rhythm GI Palpation: soft and no masses Neuro General: patient alert, patient awake and patient oriented x3 Results Labs Labs: RUN DATE: 11/26/24 [facility] PAGE 1 RUN TIME: [id number] RUN USER: [place] [address] Chelle Arroyo MD PATIENT REPORT PATIENT: Yolis Puente LOC: [facility] U #: [id number] /SX: [id number] F ROOM: RE02/28/[address]: SHEY SNYDER NP STATUS: DEP REF BED: DIS: SPEC #: [id number] RUDI: 02/28/23 STATUS: COMP REQ #: [id number] RECD: 02/28/[address]: SHEY SNYDER NP ENTERED: 02/28/[address]: FAX #: ORDERED: Stone Anaylsis QUERIES: Source: Kidney Test Result Flag Reference Verified Kidney Stone Analysis Source: Kidney 03/07/23 Interpretation See Comment 03/07/23 80% Calcium oxalate monohydrate. 20% Calcium phosphate (apatite). Result Comment See Comment 03/07/23 For stones containing calcium oxalate, calcium phosphate, and/or uric acid, a 24 hr urinary supersaturation test may help detect underlying risk factors for this type of stone formation and provide guidance for a stone prevention strategy. ADDITIONAL INFORMATION This test was developed and its performance characteristics determined by [facility] in a manner consistent with CLIA requirements. This test has not been cleared or approved by the U.S. Food and Drug Administration. Test Performed by: [facility] [place] [address] Data Center Consultant: Wil Peña M.D. Ph.D.; CLIA# [id number] Patient: Yolis Puente LABORATORY Acct#[id number] Unit#[id number] Time Spent Time spent with Patient: <40 minutes Time was spent: other
[2024-11-26] MEDS: Lactated Ringers 1,000 ML 80 ML IV (06:53)
--- NOTE | 2024-11-26 07:01 | W.ANESPRE ---
General Info Date of Service Date Performed: 11/26/24 Height: 5 ft 7.5 in Weight: 77.7 kg Body Mass Index (BMI): 26.4 Surgical Procedure: Operation Date: 11/26/24 07:40 Proposed Procedure Side Surgeon p Cystoscopy/Retrograde/Ureteroscopy/Stone Manipulation/ ? Stent Right Roger Casiano MD Meds Allergies and Home Medications Allergies Allergy/AdvReac Type Severity Reaction Status Date / Time coenzyme 10 Allergy Intermediate Hives/Itchi Uncoded 11/26/24 06:35 ng Home Medication ?Medication ?Instructions ?Recorded multivitamin,jy-hqhv-agwkyruv 1 tab PO DAILY 05/09/18 (Complete Multivitamin tablet) omega-3 fatty acids 1,000 mg 1,000 mg PO DAILY 04/20/19 capsule (Fish Oil Concentrate) atorvastatin 40 mg tablet 40 mg PO QHS #90 tabs 03/21/23 ketorolac 10 mg tablet 10 mg PO Q8H PRN pain #9 tabs 07/19/23 fluticasone propionate 50 2 spray intranasal DAILY PRN 03/26/24 mcg/actuation nasal allergic rhinitis #47.4 grams spray,suspension hydrochlorothiazide 25 mg tablet 25 mg PO QAM #90 tabs 03/26/24 potassium chloride 20 mEq 20 meq PO DAILY #90 tabs 03/26/24 tablet,extended release valsartan 80 mg tablet 80 mg PO QPM #90 tabs 03/26/24 Current Visit Medications: Current Medications Generic Name Dose Route Start Last Admin Trade Name Freq PRN Reason Stop Dose Admin Ringer's Solution 1,000 mls @ 80 mls/hr 11/26/24 06:00 11/26/24 06:53 IV 11/26/24 23:59 80 mls/hr INFUSION YEMI Administration Cefazolin Sodium/Dextrose 2 gm in 50 mls @ 100 mls/hr 11/26/24 06:00 Ancef Duplex IVPB 11/26/24 23:59 PREOP YEMI IV Miscellaneous Supplies 1 each 11/26/24 06:00 Iv Access IV 11/26/24 23:59 DIRECTED YEMI Sodium Chloride 0 ml 11/26/24 06:00 Normal Saline Flush 10 Ml Syr IV 11/26/24 23:59 PRN PRN Sodium Chloride 0 ml 11/26/24 06:00 Normal Saline 10 Ml Vial IJ 11/26/24 23:59 DIRECTED PRN Sterile Water 0 ml 11/26/24 06:00 Water,Injection,Sterile 10 Ml Vial IJ 11/26/24 23:59 DIRECTED PRN PFSH Active Problems Active Problems: Problem Status Onset Code Dyslipidemia Acute E78.5 Renal calculi Chronic N20.0 Visit for suture removal Acute Z48.02 Hypokalemia Acute E87.6 Hip pain Acute M25.559 Lipoma Acute D17.9 Skin lesion Acute L98.9 Annual physical exam Acute Z00.00 Meningioma Acute D32.9 Vertigo Acute R42 HTN (hypertension) Chronic I10 Allergic rhinitis Chronic J30.9 Fibroids, submucosal Acute 04/17/15 D25.0 History of anemia Acute 02/03/18 Z86.2 Hyperglycemia Acute 02/03/18 R73.9 Low HDL (under 40) Acute 02/03/18 E78.6 Medical History Medical History Anemia Hyperglycemia Fibroid uterus Hypertriglyceridemia Menorrhagia Treated with OCPs [id number]. Mirena IUD 2013 not effective. 06/19/15 hysteroscopic myomectomy. Surgical History Surgical History Hysteroscopy (06/19/15) hysteroscopic myomectomy. 3/4 of fibroid removed. Tobacco Smoking/Tobacco Use Status: Never Passive smoking exposure: No Second hand exposure: Yes Alcohol Alcohol Intake: current Alcohol intake frequency: a few times a month Alcohol type: hard liquor Substance Use Substance use: Never Substance use type: does not use Vital Signs and Lab Results Vital Signs Most Recent Vital Signs in EMR: Most Recent Vital Signs Temp Pulse Resp BP Pulse Ox 36.8 C 74 16 143/91 H 99 11/26/24 06:44 11/26/24 06:44 11/26/24 06:44 11/26/24 06:44 11/26/24 06:44 Lab Results Blood Type / Crossmatch: No Data to Display Complete Blood Count: No Data to Display Complete Metabolic Panel: No Data to Display Liver Function Panel: No Data to Display Coagulation Panel: No Data to Display Cardiac Panel: No Data to Display Arterial Blood Gas: No Data to Display Venous Blood Gas: No Data to Display Pancreas Panel: No Data to Display Thyroid Panel: No Data to Display Infectious Disease: No Data to Display Blood Cultures: No Data to Display Toxicology Panel: No Data to Display Anesthesia Assessment and Plan Anesthesia History Personal History: No History of Anesthesia Complications Family History: No Family History of Anesthesia Complications Exercise Tolerance Exercise Tolerance: Metabolic Equivalents>4 Pertinent Negatives Pertinent Negatives: No Symptoms of GERD, No Major Cardiovascular Symptoms or Complaints, No Major Pulmonary Symptoms or Complaints and No History of CVA/TIA Cardiac & Pulmonary Exam Cardiac Exam: Normal S1/S2 Heart Sounds Pulmonary Exam: Clear Bilateral Breath Sounds Implantable Cardiac Device Does patient have a Pacemaker or an ICD?: No Airway Exam Known Difficult Airway: No Mallampati Class: 2 Mouth Opening: Normal (> 3cm) Thyromental Distance: Greater than 3 cm Neck Range of Motion: Full ROM Neck Circumference: Normal Teeth Condition: Normal Dentition ASA Classification ASA Score: ASA 2 Emergency Case?: No NPO Status NPO Status: NPO Clears >2 hours, Solids >8 hours Anesthesia Plan Resuscitation Status: Full Code Anesthesia Technique: General Anesthesia Airway Planned: Endotracheal Tube Monitors Used: Standard Monitors
[2024-11-26] MEDS: ceFAZolin 2 GM/50 ML BAG IVPB (07:45)
[2024-11-26] MEDS: Lidocaine 2% Jelly 6 ML SYR (08:00)
[2024-11-26] MEDS: Omnipaque 300 MG/ML 50 ML BTL (08:25)
--- NOTE | 2024-11-26 09:19 | W.PM.DSUDISC ---
Date of service: 11/26/24 Discharge Plan Disposition Patient Disposition: Home Condition: Stable Discharge Details Reason For Visit: ureteroscopy Attending Provider: Roger Casiano Primary Care Provider: Nahum Regan Home Meds and New Rx's Prescriptions: New tramadol 50 mg tablet 50 mg PO Q6H PRNQty: 20 0RF Rx Instructions: may take with NSAIDS and Tylenol oxybutynin chloride 5 mg tablet 5 mg PO BID-TID PRN (Reason: bladder spasms) Qty: 30 0RF ciprofloxacin HCl [Cipro] 250 mg tablet 250 mg PO BID Qty: 14 0RF No Action Complete Multivitamin tablet 1 tab PO DAILY omega-3 fatty acids [Fish Oil Concentrate] 1,000 mg capsule 1,000 mg PO DAILY hydrochlorothiazide 25 mg tablet 25 mg PO QAM Qty: 90 3RF potassium chloride 20 mEq tablet extended release 20 meq PO DAILY Qty: 90 3RF valsartan 80 mg tablet 80 mg PO QPM Qty: 90 3RF fluticasone propionate 50 mcg/actuation spray,suspension 2 spray MARIAELENA DAILY PRN (Reason: allergic rhinitis) Qty: 47.4 5RF Rx Instructions: administer into each nostril atorvastatin 40 mg tablet 40 mg PO QHS Qty: 90 3RF Rx Instructions: . ketorolac 10 mg tablet 10 mg PO Q8H PRN (Reason: pain) Qty: 9 0RF Rx Instructions: Take one tablet 3 times daily as needed for pain. Do not use NSAIDs while taking this med Discharge Instructions Additional Instructions: You do not need to strain your urine. I removed a piece of stone and have sent for testing You have a stent in place. While the stent is there, you may see blood in your urine. You may have increased urination frequency and urgency. You may have some discomfort with urination. I have provided you with some pain medications if you need along with some medications that can cut down on the urinary frequency and urgency. I have also provided you with an antibiotic to take with you on your upcoming trip. If you begin noticing fevers or increasing burning with urination, please start the antibiotic. My office will contact you regarding your next surgical procedure to remove the stent. I believe there is 1 more piece of stone up in your kidney but I was not able to see it with my scope by the end of the procedure. Activity:: Activity as Tolerated Shower/Bathe:: 24 hours Diet:: As Tolerated DS: Diagnosis Discharge Diagnosis (1) Renal calculi: Status: Chronic
--- NOTE | 2024-11-26 09:20 | DI.RAD_ITS ---
Exam(s) XR RETROGRADE IN OR EXAM: XR RETROGRADE IN OR CLINICAL HISTORY: Right nephrolithiasis. TECHNIQUE: 2D digital imaging was performed. COMPARISON: No exams were available for comparison FINDINGS: Fluoroscopy provided during retrograde urologic procedure for treatment of a calculus in the right re nal pelvis. There is also placement of a right ureteral stent. See procedure report for details. IMPRESSION: As above. Radiation exposure index/cumulative dose:boby Mcwilliams= 11.215 mGy DATA REPOSITORY: RADIATION DOSE DELIVERED:
--- NOTE | 2024-11-26 09:30 | ROE_ITS ---
Operative Note Operative Note PRE-OP DIAGNOSIS: Right kidney stone POST-OP DIAGNOSIS: same PROCEDURE: cystoscopy, right retrograde pyelogram, right flexible ureteroscopy with holmium laser lithotripsy, stone fragment extraction, insert right ureteral stent SURGEON: Roger Casiano ANESTHESIA TYPE: Local By Surgeon and General LMA/ETT Refer to Anesthesia Record ESTIMATED BLOOD LOSS: 5 PATHOLOGY: other (stone fragment for chemical analysis) COMPLICATIONS: None Patient was transported to: PACU Patient's condition: stable Implants: 4.8 yi by 22 to 30 cm right ureteral stent Indications: This is a 59-year-old woman who is known to have of a right sided kidney stone. We have been monitoring her stone burden with imaging studies. She developed increasing right flank pain which prompted a renal ultrasound. Her previously identified stone had migrated to a mid pole calyx and she had mild hydronephrosis. Her stone measured 9 mm in size. She presents for stone gurdeep pulation Findings: Large stone in the renal pelvis Procedure Description: The patient was given antibiotics brought to the operating room on 11/26/2024. After successful induction of general anesthesia, she was placed in the dorsal lithotomy position. Her genitalia was prepped and draped. 2% Xylocaine jelly was instilled into the urethra. The 22 Bruneian rigid cystoscope was passed through the urethra into the bladder. The bladder was inspected with the 30 degree lens. Both ureteral orifices appeared normal. No blood was seen coming from either side. The remainder of the bladder was smooth-walled with no papillary or nodular lesions. The right ureteral orifice was cannulated with 5 Bruneian access catheter and a retrograde pyelogram was obtained by injecting Omnipaque through the access catheter under fluoroscopic guidance. The right ureter and collecting system were outlined in a radio opaque filling defect was seen in the renal pelvis. I then passed a guidewire through the lumen of the access catheter and removed the access catheter. A dual-lumen catheter was advanced over the wire and we placed a second wire up the ureter. The dual-lumen catheter was removed. We chose one of the wires as a working wire and the other as a safety wire. We then passed a ureteral access sheath over the working wire leaving the safety wire in place. The disposable flexible ureteroscope was advanced through the ureteral access sheath and the stone was visualized in the renal pelvis. I treated the stone with a 272 ?m holmium laser fiber. We used a combination of dusting settings and fragmenting settings. The stone fragments migrated into the 2 lower pole calyces. I was able to grasp one of the large stone fragments and a 0 tip stone basket and remove it in its entirety. I am not convinced that all stone fragments were dealt with with this initial surgery. As visibility became compromised, we elected to place a ureteral stent and come back for a planned return visit to the OR to address any residual fragments. We passed a 4.8 Bruneian variable length stent over the safety wire. We position the stent such that the proximal end was curled in the renal pelvis and the distal end was curled within the bladder. The position of the stent was confirmed both fluoroscopically and cystoscopically. The patient tolerated this procedure well with no complications. She was taken to the recovery room in stable condition. Date of Procedure: 11/26/24
[2024-11-26] MEDS: Oxybutynin 5 MG TAB PO (10:31)
[2024-11-26] MEDS: Phenazopyridine 200 MG TAB PO (10:32)
--- NOTE | 2024-11-26 11:31 | W.ANESPOSTOP ---
Postoperative Evaluation Date, Time and Location Date Performed: 11/26/24 Time Performed: 10:52 Patient Location: Day Surgery Unit Vital Signs Most Recent Imported Vital Signs: Most Recent Vital Signs Temp Pulse Resp BP Pulse Ox 36.1 C L 62 16 143/83 H 100 11/26/24 10:30 11/26/24 10:30 11/26/24 10:30 11/26/24 10:30 11/26/24 10:30 Pain Score Most Recent Pain Score: Most Recent Pain Score Pain Level 3 11/26/24 10:30 Assessment Mental Status: Awake (Alert & Oriented to Patient Baseline) Airway and Respiratory Function: Patent airway with normal (patient baseline) respiratory exam Cardiovascular Function: Hemodynamically Stable Hydration Status: Adequately Hydrated Nausea & Vomiting: No Nausea or Vomiting Pain: Pain is tolerable per patient Peripheral Nerve Block: Patient did not receive a nerve block
[2024-12-05 13:01] LABS: Source: Right Kidney
== END 2024-11-26 11:00 | disposition home or self-care (01) ==
PROVIDERS: PCP Nurse Practitioner Family; Visit Provider Urology
PROC: (CPT 52356; principal; 2024-11-26 07:30)
DX: N20.0 Calculus of kidney (principal); I10 Essential (primary) hypertension; E78.1 Pure hyperglyceridemia; R73.9 Hyperglycemia, unspecified
CPT/HCPCS: 52356; C1747; 74420; 82365; J0690; J1100; J1885; J2003; J2405; J2704; Q9967

== ENCOUNTER 2024-12-27 07:28 | Day surgery (SDC) | payer BC, SELFPAY ==
[2024-12-27] VITALS (15 sets, daily range): BP systolic 109–126; BP diastolic 58–103; PULSE 66–88; RESP 12–24; TEMP 36.3–36.5; O2SAT 90–121; BMI 26.0
[2024-12-27] MEDS: Lactated Ringers 1,000 ML 80 ML IV (08:01)
--- NOTE | 2024-12-27 08:10 | W.PM.HP.N ---
Date of service: 12/27/24 Time of Service: 08:10 Assessment and Plan Assessment and plan (1) Renal calculi: Status: Chronic (2) H/O ureteroscopy: Assessment and plan: We will remove her ureteral stent and perform retrograde pyelogram followed by ureteroscopy to ensure that all stone fragments have been addressed. History of Present Illness History of Present Illness Chief Complaint: Right kidney stone Narrative: This is a 59-year-old woman with a history of kidney stones. She had a right sided kidney stone that had been in a midpole calyx. The stone then migrated to the renal pelvis and caused symptoms and hydronephrosis. She underwent ureteroscopy, holmium laser lithotripsy of her stone, stone extraction and placement of a ureteral stent. She presents now to have her stent removed. We plan on repeating her ureteroscopy to ensure that all stone fragments have been addressed. She does have some irritative voiding symptoms, but she has not been able to tolerate anticholinergics because of the dry mouth. She is not having any fever or chills. Review of Systems Narrative: No fevers or chills Allergic rhinitis. No vision change or dysphasia No diabetes or thyroid dysfunction No shortness of breath, cough or hemoptysis No chest pain or palpitations No nausea, vomiting, hepatitis, ulcers, jaundice Hx vertigo. No seizures, strokes or peripheral neuropathy No bleeding disorders or anemia No gout PFSH All Active Problems Dyslipidemia (Acute) Renal calculi (Chronic) Visit for suture removal (Acute) Hypokalemia (Acute) Hip pain (Acute) Lipoma (Acute) Skin lesion (Acute) Annual physical exam (Acute) Meningioma (Acute) Vertigo (Acute) HTN (hypertension) (Chronic) Allergic rhinitis (Chronic) Fibroids, submucosal (Acute 04/17/15) History of anemia (Acute 02/03/18) Hyperglycemia (Acute 02/03/18) Low HDL (under 40) (Acute 02/03/18) Medical History Anemia Hyperglycemia Fibroid uterus Hypertriglyceridemia Menorrhagia Treated with OCPs 0512-2030. Mirena IUD 2013 not effective. 06/19/15 hysteroscopic myomectomy. Surgical History (Updated 12/27/24 @ 08:11 by Roger Casiano MD) H/O ureteroscopy Hysteroscopy (06/19/15) hysteroscopic myomectomy. 3/4 of fibroid removed. Family History Mother Heart disease Maternal Grandfather , 70s Heart disease Maternal Grandmother , 90 Diabetes Asthma Son No problems noted. Daughter No problems noted. Father , Age 69 No problems noted. Social History Smoking/Tobacco Use Status: Never Second Hand Exposure: Yes Smoking risk assessment performed?: Yes Alcohol Intake: current Alcohol Intake frequency: a few times a month Alcohol type: hard liquor Drug use: Never Substance use type: does not use Caregiver/Support person: No Household members: family, children and friend(s) Housing: house Communication Needs: None Do you need help understanding health information?: Never Pets and animals: No Sexually active: No Do you think of yourself as: straight/heterosexual Current gender identity: female What is your relationship status?: How often do you talk on the phone with friends or family?: once per week How often do you get together with friends or relatives?: decline to answer How often do you attend congregation or zoroastrian services?: decline to answer Do you belong to any clubs or organized social groups?: no Panel score (0-1 are the most socially isolated patients): 0 What type of physical activity do you participate in: walking Duration: 30-45 minutes/day Frequency: 1-2 times per week Tatiana/Pentecostal: No preference Special tatiana needs: No Seatbelt use: always Helmet use: Yes Helmet use: always Drive intox or ride w/intox delivery driver/customer service: No Do you feel safe at home: Yes Do you feel safe in your relationship?: Yes Meds Allergies and Home Medications Allergies Allergy/AdvReac Type Severity Reaction Status Date / Time coenzyme 10 Allergy Intermediate Hives/Itchi Uncoded 12/27/24 07:42 ng Home Medications ?Medication ?Instructions ?Recorded ?Confirmed ?Type multivitamin,vt-lwrk-uhpeeqay 1 tab PO DAILY 05/09/18 12/27/24 History (Complete Multivitamin tablet) omega-3 fatty acids 1,000 mg 1,000 mg PO DAILY 04/20/19 12/27/24 History capsule (Fish Oil Concentrate) atorvastatin 40 mg tablet 40 mg PO QHS #90 tabs 03/21/23 12/27/24 Rx ketorolac 10 mg tablet 10 mg PO Q8H PRN pain #9 tabs 07/19/23 12/27/24 Rx fluticasone propionate 50 2 spray intranasal DAILY PRN 03/26/24 12/27/24 Rx mcg/actuation nasal allergic rhinitis #47.4 grams spray,suspension hydrochlorothiazide 25 mg tablet 25 mg PO QAM #90 tabs 03/26/24 12/27/24 Rx potassium chloride 20 mEq 20 meq PO DAILY #90 tabs 03/26/24 12/27/24 Rx tablet,extended release valsartan 80 mg tablet 80 mg PO QPM #90 tabs 03/26/24 12/27/24 Rx oxybutynin chloride 5 mg tablet 5 mg PO BID-TID PRN bladder spasms 11/26/24 12/27/24 Rx #30 tabs tramadol 50 mg tablet 50 mg PO Q6H PRN #20 tabs 11/26/24 12/27/24 Rx Exam Const General: cooperative Neck Neck: supple Resp Effort & Inspection: normal respiratory effort Auscultation: clear to auscultation bilaterally Cardio Rate: regular rate Rhythm: regular rhythm GI Inspection: normal to inspection Neuro General: patient alert, patient awake and patient oriented x3 Results Labs Labs: RUN DATE: 12/27/24 [facility] PAGE 1 RUN TIME: [address] RUN USER: [place] [address] Chelle Arroyo MD PATIENT REPORT PATIENT: Yolis Puente LOC: TUNG U #: [id number] /SX: [id number] F ROOM: RE11/26/[address]: ROGER CASIANO MD STATUS: DEP [facility] [place] BED: DIS: SPEC #: [id number] RUDI: 11/26/24 STATUS: COMP REQ #: [id number] RECD: 11/26/[address]: ROGER CASIANO MD ENTERED: 11/26/[address]: Nahum Hebert DNP FAX #: ORDERED: Stone Anaylsis QUERIES: Source: Right Kidney Test Result Flag Reference Verified Kidney Stone Analysis Source: Right Kidney 12/05/24 Interpretation See Comment 12/05/24 50% Calcium oxalate monohydrate. 40% Calcium phosphate (apatite). 10% Calcium oxalate dihydrate. Result Comment See Comment 12/05/24 For stones containing calcium oxalate, calcium phosphate, and/or uric acid, a 24 hr urinary supersaturation test may help detect underlying risk factors for this type of stone formation and provide guidance for a stone prevention strategy. ADDITIONAL INFORMATION This test was developed and its performance characteristics determined by [facility] in a manner consistent with CLIA requirements. This test has not been cleared or approved by the U.S. Food and Drug Administration. Test Performed by: [facility] [place] [address] Bartender Helper: Fabio Ruano Ph.D.; CLIA# [id number] Patient: Yolis Puente LABORATORY Acct#[id number] Unit#[id number] Last Vital Signs Temp 36.3 C L 12/27/24 07:44 Pulse 66 12/27/24 07:44 Resp 20 12/27/24 07:44 BP 124/88 12/27/24 07:44 Pulse Ox 98 12/27/24 07:44 Time Spent Time spent with Patient: <40 minutes Time was spent: other
--- NOTE | 2024-12-27 08:27 | W.ANESPRE ---
General Info Date of Service Date Performed: 12/27/24 Height: 5 ft 7.5 in Weight: 76.6 kg Body Mass Index (BMI): 26.0 Surgical Procedure: Operation Date: 12/27/24 08:40 Proposed Procedure Side Surgeon p Cystoscopy/Possible Laser/Retrograde/Ureteroscopy/ Stent Removal Right Roger Casiano MD Meds Allergies and Home Medications Allergies Allergy/AdvReac Type Severity Reaction Status Date / Time coenzyme 10 Allergy Intermediate Hives/Itchi Uncoded 12/27/24 07:42 ng Home Medication ?Medication ?Instructions ?Recorded multivitamin,jr-dlcr-tzejxihx 1 tab PO DAILY 05/09/18 (Complete Multivitamin tablet) omega-3 fatty acids 1,000 mg 1,000 mg PO DAILY 04/20/19 capsule (Fish Oil Concentrate) atorvastatin 40 mg tablet 40 mg PO QHS #90 tabs 03/21/23 ketorolac 10 mg tablet 10 mg PO Q8H PRN pain #9 tabs 07/19/23 fluticasone propionate 50 2 spray intranasal DAILY PRN 03/26/24 mcg/actuation nasal allergic rhinitis #47.4 grams spray,suspension hydrochlorothiazide 25 mg tablet 25 mg PO QAM #90 tabs 03/26/24 potassium chloride 20 mEq 20 meq PO DAILY #90 tabs 03/26/24 tablet,extended release valsartan 80 mg tablet 80 mg PO QPM #90 tabs 03/26/24 oxybutynin chloride 5 mg tablet 5 mg PO BID-TID PRN bladder spasms 11/26/24 #30 tabs tramadol 50 mg tablet 50 mg PO Q6H PRN #20 tabs 11/26/24 Current Visit Medications: Current Medications Generic Name Dose Route Start Last Admin Trade Name Freq PRN Reason Stop Dose Admin Ringer's Solution 1,000 mls @ 80 mls/hr 12/27/24 06:00 12/27/24 08:01 IV 12/27/24 23:59 80 mls/hr INFUSION YEMI Administration Cefazolin Sodium/Dextrose 2 gm in 50 mls @ 100 mls/hr 12/27/24 06:00 Ancef Duplex IVPB 12/27/24 23:59 PREOP YEMI IV Miscellaneous Supplies 1 each 12/27/24 06:00 Iv Access IV 12/27/24 23:59 DIRECTED YEMI Sodium Chloride 0 ml 12/27/24 06:00 Normal Saline Flush 10 Ml Syr IV 12/27/24 23:59 PRN PRN Sodium Chloride 0 ml 12/27/24 06:00 Normal Saline 10 Ml Vial IJ 12/27/24 23:59 DIRECTED PRN Sterile Water 0 ml 12/27/24 06:00 Water,Injection,Sterile 10 Ml Vial IJ 12/27/24 23:59 DIRECTED PRN PFSH Active Problems Active Problems: Problem Status Onset Code Dyslipidemia Acute E78.5 Renal calculi Chronic N20.0 Visit for suture removal Acute Z48.02 Hypokalemia Acute E87.6 Hip pain Acute M25.559 Lipoma Acute D17.9 Skin lesion Acute L98.9 Annual physical exam Acute Z00.00 Meningioma Acute D32.9 Vertigo Acute R42 HTN (hypertension) Chronic I10 Allergic rhinitis Chronic J30.9 Fibroids, submucosal Acute 04/17/15 D25.0 History of anemia Acute 02/03/18 Z86.2 Hyperglycemia Acute 02/03/18 R73.9 Low HDL (under 40) Acute 02/03/18 E78.6 Medical History Medical History Anemia Hyperglycemia Fibroid uterus Hypertriglyceridemia Menorrhagia Treated with OCPs 4862-2163. Mirena IUD 2013 not effective. 06/19/15 hysteroscopic myomectomy. Surgical History Surgical History (Updated 12/27/24 @ 08:11 by Roger Casiano MD) H/O ureteroscopy Hysteroscopy (06/19/15) hysteroscopic myomectomy. 3/4 of fibroid removed. Tobacco Smoking/Tobacco Use Status: Never Passive smoking exposure: No Second hand exposure: Yes Alcohol Alcohol Intake: current Alcohol intake frequency: a few times a month Alcohol type: hard liquor Substance Use Substance use: Never Substance use type: does not use Vital Signs and Lab Results Vital Signs Most Recent Vital Signs in EMR: Most Recent Vital Signs Temp Pulse Resp BP Pulse Ox 36.3 C L 66 20 124/88 98 12/27/24 07:44 12/27/24 07:44 12/27/24 07:44 12/27/24 07:44 12/27/24 07:44 Lab Results Blood Type / Crossmatch: No Data to Display Complete Blood Count: No Data to Display Complete Metabolic Panel: No Data to Display Liver Function Panel: No Data to Display Coagulation Panel: No Data to Display Cardiac Panel: No Data to Display Arterial Blood Gas: No Data to Display Venous Blood Gas: No Data to Display Pancreas Panel: No Data to Display Thyroid Panel: No Data to Display Infectious Disease: No Data to Display Blood Cultures: No Data to Display Toxicology Panel: No Data to Display Imaging and Studies Imaging and Studies Study information below may be from another EMR and interpreted by another provider. Please see original notes in EMR for more complete details. EKG Summary: 01/13/21: Exam: Resting ECG Reason for Exam: dizzy Patient Location: E HR:63 bpm ECG Measurements Heart Rate 63 AXIS NE 176 P 46 QRSd 91 QRS 13 QT 452 T32 QTc 462 Conclusion Sinus rhythm...normal P axis, V-rate 60- 99 Normal [place] Normal Electrocardiogram I have reviewed and I agree with the emergency room physician's ECG interpretation. Anesthesia Assessment and Plan Anesthesia History Personal History: No History of Anesthesia Complications Family History: No Family History of Anesthesia Complications Exercise Tolerance Exercise Tolerance: Metabolic Equivalents>4 Pertinent Negatives Pertinent Negatives: No Symptoms of GERD, No Major Cardiovascular Symptoms or Complaints and No Major Pulmonary Symptoms or Complaints Cardiac & Pulmonary Exam Cardiac Exam: Normal S1/S2 Heart Sounds Pulmonary Exam: Clear Bilateral Breath Sounds Implantable Cardiac Device Does patient have a Pacemaker or an ICD?: No Airway Exam Known Difficult Airway: No Mallampati Class: 2 Mouth Opening: Normal (> 3cm) Thyromental Distance: Greater than 3 cm Neck Range of Motion: Full ROM Neck Circumference: Normal Teeth Condition: Normal Dentition ASA Classification ASA Score: ASA 2 Emergency Case?: No NPO Status NPO Status: NPO Clears >2 hours, Solids >8 hours Anesthesia Plan Resuscitation Status: Full Code Anesthesia Technique: General Anesthesia Airway Planned: Endotracheal Tube Monitors Used: Standard Monitors and SedLine
[2024-12-27] MEDS: ceFAZolin 2 GM/50 ML BAG IVPB (09:04)
[2024-12-27] MEDS: Lidocaine 2% Jelly 11 ML SYR (09:25)
[2024-12-27] MEDS: Omnipaque 300 MG/ML 50 ML BTL (09:59)
--- NOTE | 2024-12-27 10:12 | W.PM.DSUDISC ---
Date of service: 12/27/24 Discharge Plan Disposition Patient Disposition: Home Condition: Stable Discharge Details Reason For Visit: ureteroscopy Attending Provider: Roger Casiano Primary Care Provider: Nahum Regan Home Meds and New Rx's Prescriptions: Discontinued oxybutynin chloride 5 mg tablet 5 mg PO BID-TID PRN (Reason: bladder spasms) Qty: 30 0RF No Action Complete Multivitamin tablet 1 tab PO DAILY omega-3 fatty acids [Fish Oil Concentrate] 1,000 mg capsule 1,000 mg PO DAILY hydrochlorothiazide 25 mg tablet 25 mg PO QAM Qty: 90 3RF potassium chloride 20 mEq tablet extended release 20 meq PO DAILY Qty: 90 3RF valsartan 80 mg tablet 80 mg PO QPM Qty: 90 3RF fluticasone propionate 50 mcg/actuation spray,suspension 2 spray MARIAELENA DAILY PRN (Reason: allergic rhinitis) Qty: 47.4 5RF Rx Instructions: administer into each nostril atorvastatin 40 mg tablet 40 mg PO QHS Qty: 90 3RF Rx Instructions: . ketorolac 10 mg tablet 10 mg PO Q8H PRN (Reason: pain) Qty: 9 0RF Rx Instructions: Take one tablet 3 times daily as needed for pain. Do not use NSAIDs while taking this med tramadol 50 mg tablet 50 mg PO Q6H PRNQty: 20 0RF Rx Instructions: may take with NSAIDS and Tylenol Discharge Instructions Additional Instructions: Follow-up appointment in about 5 days to have your stent removed. The stent has a string attached to the end. The end of the string is tucked into your vagina. My nurse will be able to remove the stent in the office with no need to return to the operating room. Additional follow-up appointment in about 6 weeks. We will do a renal ultrasound prior to the 6-week appointment. Activity:: Activity as Tolerated Shower/Bathe:: 24 hours Diet:: As Tolerated Discharge Orders Discharge Orders: Discharge Order (Routine); Ordered 12/27/24 Ordered By: Roger Casiano DS: Diagnosis Discharge Diagnosis (1) Renal calculi: Status: Chronic (2) H/O ureteroscopy:
--- NOTE | 2024-12-27 10:14 | DI.RAD_ITS ---
Exam(s) XR RETROGRADE IN OR EXAM: XR RETROGRADE IN OR CLINICAL HISTORY: Right kidney stone TECHNIQUE: 2D and realtime digital imaging was performed. CONTRAST MATERIAL: Refer to procedure report. COMPARISON: No exams were available for comparison FINDINGS: Fluoroscopy was provided for Dr. Casiano during the performance of a retrograde evaluation of the gregorio l collecting system. Please refer to the procedure report for complete details. Ka,r=6.07 mGy IMPRESSION: RADIATION DOSE DELIVERED: 0.0 0.0 0
--- NOTE | 2024-12-27 10:15 | ROE_ITS ---
Operative Note Operative Note PRE-OP DIAGNOSIS: Right kidney stone POST-OP DIAGNOSIS: same PROCEDURE: Cystoscopy, remove right ureteral stent, right retrograde pyelogram, right flexible ureteroscopy with extraction of multiple stone fragments, insert right ureteral stent SURGEON: Roger Casiano ANESTHESIA TYPE: Local By Surgeon and General LMA/ETT Refer to Anesthesia Record ESTIMATED BLOOD LOSS: 5 PATHOLOGY: other (Stone fragments for chemical analysis) COMPLICATIONS: None Patient was transported to: PACU Patient's condition: stable Implants: 4.8 Ethiopian by 22 to 30 cm right ureteral stent with safety string attached Indications: This is a 59-year-old woman who has a history of a large right sided kidney stone. Initially, the stone was in the midpole calyx and was nonobstructing. The stone then migrated to the renal pelvis and caused hydronephrosis and symptoms. She was treated with ureteroscopy and holmium laser lithotripsy of the stone. We placed a ureteral stent following the lithotripsy. She presents now for stent removal and repeat ureteroscopy to extract any remaining stone fragments. Findings: Multiple stone fragments in right midpole calyx Procedure Description: The patient was given IV antibiotics and brought to the operating room on 12/27/2024. She was placed in the dorsal lithotomy position. Her genitalia was prepped and draped. 2% Xylocaine jelly was instilled into the urethra to act as a local anesthetic. A 22 Ethiopian rigid cystoscope was passed through the urethra into the bladder. The bladder was inspected with the 30 degree lens. The right ureteral stent could be seen protruding from the orifice. The stent was grasped with alligator forceps and brought out to the level of the urethral meatus. A Glidewire was then advanced through the lumen of the stent and the stent was removed in its entirety. A dual-lumen catheter was advanced over the wire and we obtained a retrograde pyelogram by injecting Omnipaque through the second port of the dual-lumen catheter under fluoroscopic guidance. We identified filling defects in the right midpole calyx. I then passed a second wire through the dual-lumen catheter and removed the catheter. We chose one of the wires as a working wire and the other as a safety wire. I passed a ureteral access sheath over the working wire leaving the safety wire in place. I then passed the flexible ureteroscope through the lumen of the access sheath and inspected the calyces. No stones were seen in the upper pole calyx or lower pole calyx, but there were 3 large stone fragments seen in the midpole calyx. Each of these fragments were grasped and a 0 tip stone basket and removed. The stone fragments were sent to pathology for chemical analysis. There were multiple other small fragments that were felt to be small enough to pass spontaneously. I removed the ureteroscope and ureteral access sheath. I then passed the dual- lumen catheter back over the safety wire and injected Omnipaque through the second port of the dual-lumen catheter. No extravasation of contrast was seen, but there was slow drainage from the right kidney especially at the level of the UPJ. I then elected to place a ureteral stent back in the kidney. The dual-lumen catheter was removed and I passed a 4.8 Ethiopian variable length stent over the safety wire. The proximal end of the stent was curled in the renal pelvis and the distal end was curled in the bladder. The positioning of the stent was confirmed both fluoroscopically and cystoscopically. The safety string was left in place and brought through the urethral meatus. The string was tucked into the patient's vaginal cavity. The patient tolerated this procedure well with no complications. She was taken to the recovery room in stable condition. Date of Procedure: 12/27/24
[2024-12-27] MEDS: Albuterol/Ipratropium 3 ML UPD VIAL (10:34)
--- NOTE | 2024-12-27 11:44 | W.ANESPOSTOP ---
Postoperative Evaluation Date, Time and Location Date Performed: 12/27/24 Time Performed: 11:44 Patient Location: Day Surgery Unit Vital Signs Most Recent Imported Vital Signs: Most Recent Vital Signs Temp Pulse Resp BP Pulse Ox 36.5 C 66 20 121/76 100 12/27/24 11:25 12/27/24 11:25 12/27/24 11:25 12/27/24 11:03 12/27/24 11:25 Pain Score Most Recent Pain Score: Most Recent Pain Score Pain Level 0 12/27/24 10:56 Assessment Mental Status: Awake (Alert & Oriented to Patient Baseline) Airway and Respiratory Function: Patent airway with normal (patient baseline) respiratory exam Cardiovascular Function: Hemodynamically Stable Hydration Status: Adequately Hydrated Nausea & Vomiting: No Nausea or Vomiting Pain: Pt. Denies Any Pain Peripheral Nerve Block: Patient did not receive a nerve block
[2024-12-27] MEDS: traMADol 50 MG TAB PO (11:48)
[2024-12-27] MEDS: Phenazopyridine 200 MG TAB PO (11:48)
[2025-01-03 16:02] LABS: Source: Right Kidney
== END 2024-12-27 12:02 | disposition home or self-care (01) ==
PROVIDERS: PCP Nurse Practitioner Family; Visit Provider Urology
PROC: (CPT 52332; principal; 2024-12-27 08:30)
DX: N20.0 Calculus of kidney (principal); Z98.890 Other specified postprocedural states
CPT/HCPCS: 52332; 52352; 74420; 82365; J0131; J0690; J1100; J1885; J2003; J2405; J2704; J3010; J7620; Q9967

== ENCOUNTER 2025-02-18 02:59 | Outpatient (CLI) | payer BC, SELFPAY ==
--- NOTE | 2025-02-18 | DI.MRI_ITS ---
Exam(s) MR BRAIN WO/W EXAM: MR BRAIN WO/W CLINICAL HISTORY: Left-sided meningiomas, D32.9; surveillance TECHNIQUE: Multiplanar multisequence MRI of the brain was performed. Both noninfused and contrast infused sequences were performed. IV Contrast injected was 16 cc Dotarem. COMPARISON: MR MR BRAIN WO/W from 05/31/2022 MR MR BRAIN WO/W from 07/06/2023 FINDINGS: CEREBRAL PARENCHYMA: Again noted are the 2 enhancing left-sided meningiomas. The enhancing meningioma in the anterior left frontal lobe region abutting the falx again measures tears 2.5 x 2.1 cm, unchanged and not associated with edema in the adjacent left frontal lobe. I note that on the prior report this was incorrectl y called on the right side. This an angioma is indeed on the left side. The others similar appearing meningeal based meningioma on the left side also appears unchanged in size and configuration in the left temporoparietal region and again measures 2.7 x 2.1 cm. The enhancement pattern of both meningiomas is unchanged. There has been no interval size growth. No new additional lesions identified in the extra-axial space nor ring-enhancing lesions within the brain. No evidence of intracranial hemorrhage nor new mass effect. No extraaxial fluid collections. Ventricles are not enlarged nor shifted. There is no significant focal signal abnormality in the cerebellar hemispheres nor within the isidro, midbrain, and thalami. There is no abnormal signal abnormality in the periventricular white matter. DWI: No areas of restricted diffusion to suggest acute ischemic event. SWI: No microhemorrhages evident. PITUITARY GLAND: No mass nor parasellar abnormality. No obvious abnormality in the cavernous sinuses. FLOW VOIDS: The expected flow void are noted. No evidence of obvious aneurysm nor obvious vascular malformation. PARANASAL SINUSES: The visualized paranasal sinuses appear unremarkable. ORBITS: No obvious abnormal findings. IMPRESSION: 1. The 2 previously described left-sided meningiomas are stable in size, configuration, and enhancement pattern when compared to prior MRI studies listed above. 2. No new abnormal enhancing intracranial findings. New mass effect. DATA REPOSITORY:
[2025-02-18] MEDS: Gadoterate meglumine 20 ML SYRINGE 16 ML IVP (09:13)
[2025-02-18] MEDS: Normal Saline Flush 10 ML SYR IVP (09:14)
== END 2025-02-18 03:19 ==
LOC: DI 02:59
PROVIDERS: PCP Nurse Practitioner Family; Visit Provider Physician Assistant
DX: D32.9 Benign neoplasm of meninges, unspecified (principal)
CPT/HCPCS: 70553

== ENCOUNTER 2025-04-09 17:55 | Outpatient (REF) | payer BC, SELFPAY ==
--- NOTE | 2025-04-09 13:40 | PAPFT_PTH ---
PATIENT: Yolis Puente LOC: [facility] U#:[id number] AGE/SX: 59/F ROOM: RE04/09/[address]: Nahum Hebert DNP : 1965 BED: DIS: 04/09/2025 SPEC #: [id number] RECD: 04/10/25 12:41 STATUS: DANIEL LORENZO #: [id number] RUDI: 04/09/25 13:[address]: Nahum Regan DEPT: [facility] Cytology RECD BY: Christine Gr Tissues: 1 - CX/ENDOCX FOR PAP SMEARS Procedures: PAP THIN PREP/[facility] Screening Comments: [id number]
== END 2025-04-09 17:56 | disposition home or self-care (01) ==
LOC: LBN 17:55
PROVIDERS: PCP Nurse Practitioner Family; Visit Provider Nurse Practitioner Family
DX: Z12.4 Encounter for screening for malignant neoplasm of cervix (principal)
CPT/HCPCS: 88142

== ENCOUNTER 2025-05-24 02:58 | Outpatient (CLI) | payer BC, SELFPAY ==
[2025-05-24 08:15] LABS: ALT 38 U/L (14-59); AST 23 U/L (15-37); Albumin 3.8 g/dL (3.4-5.0); Alkaline Phosphatase 108 U/L (46-116); Anion Gap 9.1 mmol/L (3-11); BUN 11 mg/dL (7-18); Bilirubin, Total 0.4 mg/dL (0.2-1.0); CO2 28.9 mmol/L (21.0-32.0); Calcium 8.8 mg/dL (8.5-10.1); Calculated LDL 111 mg/dL (<100); Chloride 105 mmol/L (98-107); Cholesterol 212 mg/dL (<200); Estimated GFR 85.89 (mL/min/1.73m2); Glucose 102 mg/dL (74-106); HDL Cholesterol 33 mg/dL (>or=50); Potassium 3.4 mmol/L (3.5-5.1); Sodium 143 mmol/L (136-145); Total Protein 7.0 g/dL (6.4-8.2); Triglyceride 344 mg/dL (<150)
== END 2025-05-24 02:59 | disposition home or self-care (01) ==
LOC: LBO 02:58
PROVIDERS: PCP Nurse Practitioner Family; Visit Provider Nurse Practitioner Family
DX: E78.5 Hyperlipidemia, unspecified (principal)
CPT/HCPCS: 36415; 80053; 80061